=== PATIENT | male | born 1960 | race Caucasian/White ===

== ENCOUNTER 2019-03-18 16:36 | Inpatient (IN) | payer MEDICARE, BC ==
[2019-03-18] MEDS ORDERED: SODIUM CHLORIDE 0.9% 1,000 ML IV STA (17:10)
[2019-03-18] MEDS ORDERED: HYDROmorphone 1 MG/ML 1 ML SYRINGE IVP STA (17:10)
--- NOTE | 2019-03-18 17:33 | ED ---
SOB HPI - General Chief Complaint: Shortness of Breath Stated Complaint: left arm swelling, Ca Patient Time Seen by Provider: 03/18/19 16:59 Source: patient, RN notes reviewed, old records reviewed Mode of arrival: ambulatory Limitations: no limitations - History of Present Illness Initial Comments: This is a 58-year-old male the ER for evaluation with history. Patient is no other significant medical history is take chronic pain medication. A she has known CABGs unsure where where the cancerous. Patient is from [place] where the patient left treatment that he was currently going through. Patient was unhappy with treatment. Patient is here with left upper arm swelling, pain and swelling, patient is very aware of his prognosis he states it is not well. Presenting with family toward is finding about his medical history 1 evaluation MD Complaint: shortness of breath -: unknown Radiation: left arm (Swelling) Severity: moderate Severity scale (1-10): 7 Quality: aching, throbbing (Pain chest pain) Consistency: constant Improves With: nothing Worsens With: nothing Known History Of: COPD, other (History of lung cancer) Context: recent illness, other (Known cancer history) Associated Symptoms: chest pain, pain with inspiration, cough, sputum production Treatments Prior to Arrival: none - Related Data Home Medications Medication Instructions Recorded Confirmed Albuterol Inhaler [Ventolin Hfa 1 - 2 puff INHALATION RT-Q6H PRN 03/18/19 03/18/19 Inhaler] oxyCODONE HCL [oxyCODONE HCL (IR)] 15 mg PO TID 03/18/19 03/18/19 Allergies Allergy/AdvReac Type Severity Reaction Status Date / Time metronidazole [From Flagyl] Allergy Swelling Verified 03/18/19 17:52 Review of Systems ROS Statement: Those systems with pertinent positive or pertinent negative responses have been documented in the HPI. ROS Other: All systems not noted in ROS Statement are negative. Past Medical History Past Medical History: Cancer Additional Past Medical History / Comment(s): lung and throat cancer History of Any Multi-Drug Resistant Organisms: None Reported Past Surgical History: Appendectomy Past Psychological History: No Psychological Hx Reported Smoking Status: Current every day smoker Past Alcohol Use History: Occasional Past Drug Use History: None Reported General Exam Limitations: no limitations General appearance: alert, in no apparent distress Head exam: Present: atraumatic, normocephalic, normal inspection Eye exam: Present: normal appearance, EOMI. Absent: scleral icterus, conjunctival injection, periorbital swelling ENT exam: Present: normal exam, mucous membranes moist, other (Voice is hoarse, which is new for him) Neck exam: Present: normal inspection. Absent: tenderness, meningismus, lymphadenopathy Respiratory exam: Present: normal lung sounds bilaterally. Absent: respiratory distress, wheezes, rales, rhonchi, stridor Cardiovascular Exam: Present: regular rate, normal rhythm, normal heart sounds. Absent: systolic murmur, diastolic murmur, rubs, gallop, clicks GI/Abdominal exam: Present: soft, normal bowel sounds. Absent: distended, tenderness, guarding, rebound, rigid Extremities exam: Present: normal inspection, full ROM, normal capillary refill, other (Left upper extremity edema and variceal changes). Absent: tenderness, pedal edema, joint swelling, calf tenderness Back exam: Present: normal inspection Neurological exam: Present: alert, oriented X3, CN II-XII intact Psychiatric exam: Present: normal affect, normal mood Skin exam: Present: warm, dry, intact, normal color. Absent: rash Course Vital Signs 03/18/19 03/18/19 03/18/19 16:40 17:30 17:40 Temperature 97.4 F L Pulse Rate 79 75 73 Respiratory 18 18 15 Rate Blood Pressure 123/73 123/57 117/70 O2 Sat by Pulse 100 100 98 Oximetry 03/18/19 03/18/19 03/18/19 17:52 18:00 18:30 Temperature Pulse Rate 70 67 Respiratory 18 16 18 Rate Blood Pressure 117/70 117/64 O2 Sat by Pulse 95 97 Oximetry 03/18/19 19:00 Temperature Pulse Rate 67 Respiratory 18 Rate Blood Pressure 120/70 O2 Sat by Pulse 99 Oximetry - Reevaluation(s) Reevaluation #1: 03/18/19 17:33 Medical records reviewed and noncontributory Reevaluation #2: 03/18/19 19:15 Family as well as patient informed her results, questions answered - Consultations Consultation #1: Spoke with Dr. Ortiz for sounds and is okay for admission Medical Decision Making - Medical Decision Making 58 male with significant cancer, cancer burden from mediastinum necrotic areas of tumor as well as compression of artery, secondary to cancer in vision, patient will be admitted for oncology evaluation pain control monitoring of cardiopulmonary status - Lab Data Result diagrams: 03/18/19 17:25 03/18/19 17:25 Lab Results 03/18/19 03/18/19 03/18/19 Range/Units 17:25 17:25 17:25 WBC 8.3 (3.8-10.6) k/uL RBC 4.00 L (4.30-5.90) m/uL Hgb 11.8 L (13.0-17.5) gm/dL Hct 36.3 L (39.0-53.0) % MCV 90.8 (80.0-100.0) fL MCH 29.6 (25.0-35.0) pg MCHC 32.5 (31.0-37.0) g/dL RDW 14.3 (11.5-15.5) % Plt Count 266 (150-450) k/uL Neutrophils % 73 % Lymphocytes % 16 % Monocytes % 7 % Eosinophils % 2 % Basophils % 1 % Neutrophils # 6.1 (1.3-7.7) k/uL Lymphocytes # 1.4 (1.0-4.8) k/uL Monocytes # 0.5 (0-1.0) k/uL Eosinophils # 0.2 (0-0.7) k/uL Basophils # 0.1 (0-0.2) k/uL PT (9.0-12.0) sec INR (<1.2) APTT (22.0-30.0) sec D-Dimer (<0.60) mg/L FEU Sodium 139 (137-145) mmol/L Potassium 3.7 (3.5-5.1) mmol/L Chloride 104 (98-107) mmol/L Carbon Dioxide 29 (22-30) mmol/L Anion Gap 6 mmol/L BUN 10 (9-20) mg/dL Creatinine 0.84 (0.66-1.25) mg/dL Est GFR (CKD-EPI)AfAm >90 (>60 ml/min/1.73 sqM) Est GFR (CKD-EPI)NonAf >90 (>60 ml/min/1.73 sqM) Glucose 90 (74-99) mg/dL Plasma Lactic Acid Kennedy 1.3 (0.7-2.0) mmol/L Calcium 8.6 (8.4-10.2) mg/dL Phosphorus 4.6 H (2.5-4.5) mg/dL Magnesium 2.0 (1.6-2.3) mg/dL Total Bilirubin 0.4 (0.2-1.3) mg/dL AST 13 L (17-59) U/L ALT 11 L (21-72) U/L Alkaline Phosphatase 96 (38-126) U/L Creatine Kinase 29 L (55-170) U/L Troponin I (0.000-0.034) ng/mL Total Protein 6.0 L (6.3-8.2) g/dL Albumin 3.3 L (3.5-5.0) g/dL 03/18/19 03/18/19 Range/Units 17:25 17:25 WBC (3.8-10.6) k/uL RBC (4.30-5.90) m/uL Hgb (13.0-17.5) gm/dL Hct (39.0-53.0) % MCV (80.0-100.0) fL MCH (25.0-35.0) pg MCHC (31.0-37.0) g/dL RDW (11.5-15.5) % Plt Count (150-450) k/uL Neutrophils % % Lymphocytes % % Monocytes % % Eosinophils % % Basophils % % Neutrophils # (1.3-7.7) k/uL Lymphocytes # (1.0-4.8) k/uL Monocytes # (0-1.0) k/uL Eosinophils # (0-0.7) k/uL Basophils # (0-0.2) k/uL PT 10.2 (9.0-12.0) sec INR 0.9 (<1.2) APTT 26.0 (22.0-30.0) sec D-Dimer 1.83 H (<0.60) mg/L FEU Sodium (137-145) mmol/L Potassium (3.5-5.1) mmol/L Chloride (98-107) mmol/L Carbon Dioxide (22-30) mmol/L Anion Gap mmol/L BUN (9-20) mg/dL Creatinine (0.66-1.25) mg/dL Est GFR (CKD-EPI)AfAm (>60 ml/min/1.73 sqM) Est GFR (CKD-EPI)NonAf (>60 ml/min/1.73 sqM) Glucose (74-99) mg/dL Plasma Lactic Acid Kennedy (0.7-2.0) mmol/L Calcium (8.4-10.2) mg/dL Phosphorus (2.5-4.5) mg/dL Magnesium (1.6-2.3) mg/dL Total Bilirubin (0.2-1.3) mg/dL AST (17-59) U/L ALT (21-72) U/L Alkaline Phosphatase (38-126) U/L Creatine Kinase (55-170) U/L Troponin I <0.012 (0.000-0.034) ng/mL Total Protein (6.3-8.2) g/dL Albumin (3.5-5.0) g/dL - Radiology Data Radiology results: report reviewed (CT chest abdomen pelvis does show significant tumor burden, mediastinal as well as left lobe last), image reviewed Disposition Clinical Impression: Lung cancer Disposition: ADMITTED IP TO THIS HOSP Condition: Fair Is patient prescribed a controlled substance at d/c from ED?: No Referrals: Nonstaff,Physician [Primary Care Provider] - 1-2 days
[2019-03-18 17:42] LABS: Basophils # (A) 0.1 k/uL (0-0.2); Basophils % (A) 1 %; Eosinophils # (A) 0.2 k/uL (0-0.7); Eosinophils % (A) 2 %; HCT 36.3 % (39.0-53.0); HGB 11.8 gm/dL (13.0-17.5); Lymphocytes # (A) 1.4 k/uL (1.0-4.8); Lymphocytes % (A) 16 %; MCH 29.6 pg (25.0-35.0); MCHC 32.5 g/dL (31.0-37.0); MCV 90.8 fL (80.0-100.0); Mean Platelet Volume 5.8; Monocytes # (A) 0.5 k/uL (0-1.0); Monocytes % (A) 7 %; Neutrophils # (A) 6.1 k/uL (1.3-7.7); Neutrophils % (A) 73 %; Platelet Count 266 k/uL (150-450); RDW 14.3 % (11.5-15.5); WBC 8.3 k/uL (3.8-10.6)
[2019-03-18 17:50] LABS: ALT 11 U/L (21-72); AST 13 U/L (17-59); African American GFR (CKD) >90 (>60 ml/min/1.73 sqM); Albumin 3.3 g/dL (3.5-5.0); Alkaline Phosphatase 96 U/L (38-126); Anion Gap 6 mmol/L; Blood Urea Nitrogen 10 mg/dL (9-20); Calcium 8.6 mg/dL (8.4-10.2); Carbon Dioxide 29 mmol/L (22-30); Chloride 104 mmol/L (98-107); Creatine Kinase 29 U/L (55-170); Glucose 90 mg/dL (74-99); Phosphorus 4.6 mg/dL (2.5-4.5); Potassium 3.7 mmol/L (3.5-5.1); Sodium 139 mmol/L (137-145); Total Bilirubin 0.4 mg/dL (0.2-1.3)
[2019-03-18 18:01] LABS: INR 0.9 (<1.2); Prothrombin Time 10.2 sec (9.0-12.0)
[2019-03-18 18:08] LABS: D-Dimer 1.83 mg/L FEU (<0.60)
--- NOTE | 2019-03-18 18:42 | CT ---
EXAMINATION TYPE: CT angio chest DATE OF EXAM: 03/18/2019 6:31 PM COMPARISON: None HISTORY: Throat CA CT DLP: 1233.9 mGycm Automated exposure control for dose reduction was used. CONTRAST: CTA scan of the thorax is performed with IV Contrast, patient injected with 100 mL of Isovue 370, pul monary embolism protocol. . There are 3-D post processed images. FINDINGS: There is a poorly marginated irregular 4.5 cm cavitating infiltrate left upper lobe near the lung ape x. There is extensive mass infiltration of the mediastinum with encasement of the pulmonary arteries. There is encasement of the aortic arch and the great vessels. There is extensive encasement of the t rachea. Thoracic aorta is atheromatous. There is almost complete occlusion of the left pulmonary artery due t o encasement from tumor. I do not see pulmonary embolism. There is 5 cm bulla at the right cardiac border in the right middle lobe. There is some consolidation and atelectasis in the lingula left upper lobe. There is no adrenal mass. Heart size is normal. IMPRESSION: THERE IS LARGE MEDIASTINAL MASS ENCASING THE GREAT VESSELS AND TRACHEA AND MAIN ARTERIES. THERE IS HAMPTON BTOTAL OCCLUSION OF THE LEFT PULMONARY ARTERY APPARENTLY DUE TO TUMOR INVASION. LEFT PLEURAL EFFUSION . CAVITATING MASS LEFT UPPER LOBE CONSISTENT WITH NECROTIC TUMOR. LINGULA CONSOLIDATION AND ATELECTAS IS. NO EVIDENCE OF PULMONARY EMBOLISM.
--- NOTE | 2019-03-18 18:56 | CT ---
EXAMINATION TYPE: CT abdomen pelvis w con DATE OF EXAM: 03/18/2019 COMPARISON: None HISTORY: Throat CA CT DLP: 1233.9 mGycm Automated exposure control for dose reduction was used. TECHNIQUE: Helical acquisition of images was performed from the lung bases through the pelvis. CONTRAST: Performed without Oral Contrast and with IV Contrast, patient injected with 100 mL of Isovue 370. FINDINGS: Multiple axial sections were obtained from the diaphragm to the floor the pelvis with intravenous con trast. There is small left pleural effusion. Heart size is normal. There is no pericardial effusion. New gra ft there is small calcified splenic granulomata. There is irregular 1.5 cm low-density lesion in the tail of the pancreas. There are small cystic changes in the pancreatic head. Gallbladder appears norm al. Liver shows no focal defect. The bile ducts are not dilated. There is no adrenal mass. The kidneys show satisfactory contrast opacification. There is no hydroneph rosis. There is 1.5 cm cortical cyst posterior left kidney. Ureters are not dilated. There is no retr operitoneal adenopathy. Abdominal aorta is atheromatous. Bladder distends smoothly. There is no ingui nal hernia. There is some mild fat stranding in the left inguinal region. There is no free fluid in t he pelvis. There is no mesenteric edema. There is no ascites or free air. There is no evidence of a bowel obstru ction. There is no sign of thickened appendix. Lumbar vertebra have normal alignment. Disc spaces are fairly normal. Posterior elements are intact. There is no compression fracture. I see no bony destru ctive process. IMPRESSION: SMALL LOW-DENSITY LESION IN THE TAIL OF THE PANCREAS. SMALL CYSTIC AREAS IN THE PANCREATIC HEAD. COMP ARISON WITH AN OLD EXAM WOULD BE HELPFUL. LEFT INGUINAL INFLAMMATORY CHANGES OF UNCERTAIN SIGNIFICANCE. ENLARGED LEFT INGUINAL LYMPH NODES KLAUDIA URE UP TO 2.8 BY 1.5 CM. NO HERNIA SEEN.
[2019-03-18] MEDS ORDERED: SODIUM CHLORIDE 0.9% 1,000 ML IV ONE (19:10)
--- NOTE | 2019-03-18 20:28 | US ---
EXAMINATION TYPE: US venous doppler duplex LE LT DATE OF EXAM: 03/18/2019 8:04 PM COMPARISON: NONE CLINICAL HISTORY: edema. Edema x 4 days. Hx lung and throat cancer. Chest pain. Patient does not take blood thinners. No Hx of DVT. SIDE PERFORMED: Left TECHNIQUE: The lower extremity deep venous system is examined utilizing real time linear array sonog john with graded compression, doppler sonography and color-flow sonography. VESSELS IMAGED: External Iliac Vein (EIV) Common Femoral Vein Deep Femoral Vein Greater Saphenous Vein * Femoral Vein Popliteal Vein Small Saphenous Vein * Proximal Calf Veins (* superficial vessels) Left Leg: No evidence of DVT in veins imaged from prox calf veins to EIV. There appears to be an ane choic area in the left groin at the patient's area of concern measurin.2 x 4.2 x 1.3 cm. Hypoechoic area with hyperechoic center seen in the left groin measurin.1 x 0.9 x 0.9 cm. This a ppears near the anechoic area. IMPRESSION: No evidence of deep venous thrombosis in the left leg. Cystic fluid collection in the le ft groin of uncertain origin and significance.
[2019-03-18] MEDS ORDERED: NICOTINE 14MG/24HR PATCH TRANSDERM SCH (22:45)
[2019-03-18] MEDS: HYDROcodone/APAP 7.5-325MG 1 EACH TAB PO PRN (22:48)
[2019-03-18] MEDS: MELATONIN 3 MG TABLET PO SCH (22:49)
--- NOTE | 2019-03-18 22:53 | P.HPIM ---
History of Present Illness H&P Date: 03/18/19 Chief Complaint: Dyspnea 58-year-old male with recent diagnosis lung mass with history of spina bifida patient moved from [place] recently to [place]. He would like to establish care here he wasn't happy with doctors over there. He was recently told that he has a lung mass with possible cancer primary cancer has not been identified yet. Patient was not adhering to his doctor's recommendation as he didn't build good report with him. Patient comments on losing 110 pounds over the past year, he also reports continuing to smoke. Patient denies any hemoptysis. He gets attacks of shortness of breath he denies any history of COPD or using any inhalers at home. He denies any recent hospitalization or use of antibiotics. Once he arrived to this area has family insisted that he comes to the hospital for evaluation as he lost a lot of weight and struggling to breathe. Patient is aware that she is possibly having underlying cancer. But he doesn't have a confirmed diagnosis yet. He is complaining of chronic pain over his upper extremities spine and lower extremities which is chronic in nature he is to take oxycodone at home. He denies otherwise any fevers or chills or GI bleeding denies any abdominal pain or chest pain denies any headache or any focal neuro deficits. In the ED CT imaging showed mediastinal mass encasing blood vessels and trachea patient admitted due to dyspnea and shortness of breath with wheezing for breathing treatments and evaluation by pulmonary and oncology to establish care Review of Systems Pertinent positives as noted in HPI. All other systems were reviewed and are negative Past Medical History Past Medical History: Cancer, Pneumonia Additional Past Medical History / Comment(s): lung and throat cancer, damaged vocal cords that will not get better per doctor in [place], voice will never come back to normal will have hoarse void, Left lung cancer/mass, unable to get big enough biopsy for final diagnosis History of Any Multi-Drug Resistant Organisms: None Reported Past Surgical History: Appendectomy Past Anesthesia/Blood Transfusion Reactions: No Reported Reaction Past Psychological History: No Psychological Hx Reported Smoking Status: Current every day smoker Past Alcohol Use History: Occasional Additional Past Alcohol Use History / Comment(s): half a pack cigarrettes, per patient many year 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 - Past Family History Mother Family Medical History: Cancer Additional Family Medical History / Comment(s): possible brain cancer Medications and Allergies Home Medications Medication Instructions Recorded Confirmed Type Albuterol Inhaler [Ventolin Hfa 1 - 2 puff INHALATION RT-Q6H PRN 03/18/19 03/18/19 History Inhaler] oxyCODONE HCL [oxyCODONE HCL (IR)] 15 mg PO TID 03/18/19 03/18/19 History Allergies Allergy/AdvReac Type Severity Reaction Status Date / Time metronidazole [From Flagyl] Allergy Swelling Verified 03/18/19 21:28 Physical Exam Vitals: Vital Signs Temp Pulse Pulse Resp BP BP Pulse Ox 03/18/19 21:27 98.0 F 75 20 131/83 99 03/18/19 19:30 76 20 118/72 96 03/18/19 19:00 67 18 120/70 99 03/18/19 18:30 67 18 117/64 97 03/18/19 18:00 70 16 117/70 95 03/18/19 17:52 18 03/18/19 17:40 73 15 117/70 98 03/18/19 17:30 75 18 123/57 100 03/18/19 16:40 97.4 F L 79 18 123/73 100 Intake and Output 03/18/19 03/18/19 03/18/19 06:59 14:59 22:59 Intake Total 1000 Balance 1000 Intake: Amount of Fluid Infused ( 1000 ml) Other: Weight 63.503 kg Constitutional: No acute distress, conversant, pleasant [place] hoarseness of voice, Eyes: Anicteric sclerae, moist conjunctiva, no lid-lag Pupils equal round reactive to light ENMT: NC/AT Oropharynx clear, no erythema, exudates Neck: Supple, FROM, no masses, or JVD No carotid bruits No thyromegaly Lungs: Scattered rhonchorous breathing, slight end expiratory wheezing scattered Clear to percussion Normal respiratory effort, no accessory muscle use Cardiovascular: Heart regular in rate and rhythm, No murmurs, gallops, or rubs No peripheral edema Abdominal: Soft, scars of prior surgeries Nontender, no guarding, rebound or rigidity Abdomen moving with respiration Normoactive bowel sounds No hepatomegaly, No splenomegaly No palpable mass No abdominal wall hernia noted Left inguinal hernia reducible Skin: Normal temperature, tone, texture, turgor No induration No subcutaneous nodules No rash, lesions No ulcers Extremities: No digital cyanosis No clubbing Pedal pulses intact and symmetrical Radial pulses intact and symmetrical No calf tenderness Psychiatric: Alert and oriented to person, place and time Appropriate affect fair judgment Neuro Muscles Strength 4/5 in all 4 extremities Sensation to light touch grossly present throughout Cranial nerves II-XII grossly intact No focal sensory deficits Lymphatics: no palpable cervical or supraclavicular , or inguinal lymph nodes Results CBC & Chem 7: 03/18/19 17:25 03/18/19 17:25 Labs: Abnormal Lab Results - Last 24 Hours (Table) 03/18/19 03/18/19 03/18/19 Range/Units 17:25 17:25 17:25 RBC 4.00 L (4.30-5.90) m/uL Hgb 11.8 L (13.0-17.5) gm/dL Hct 36.3 L (39.0-53.0) % D-Dimer 1.83 H (<0.60) mg/L FEU Phosphorus 4.6 H (2.5-4.5) mg/dL AST 13 L (17-59) U/L ALT 11 L (21-72) U/L Creatine Kinase 29 L (55-170) U/L Total Protein 6.0 L (6.3-8.2) g/dL Albumin 3.3 L (3.5-5.0) g/dL Lipase (23-300) U/L 03/18/19 Range/Units 17:25 RBC (4.30-5.90) m/uL Hgb (13.0-17.5) gm/dL Hct (39.0-53.0) % D-Dimer (<0.60) mg/L FEU Phosphorus (2.5-4.5) mg/dL AST (17-59) U/L ALT (21-72) U/L Creatine Kinase (55-170) U/L Total Protein (6.3-8.2) g/dL Albumin (3.5-5.0) g/dL Lipase 17 L (23-300) U/L Thrombosis Risk Factor Assmnt - Choose All That Apply Any of the Below Risk Factors Present?: Yes Each Factor Represents 1 point: Age 41-60 years, Varicose veins Other Risk Factors: Yes Each Risk Factor Represents 2 Points: Malignancy Other congenital or acquired thrombophilia - If yes, enter type in comment: No Thrombosis Risk Factor Assessment Total Risk Factor Score: 4 Thrombosis Risk Factor Assessment Level: Moderate Risk Assessment and Plan Assessment: 58-year-old male with history of spina bifida presented due to shortness of br eath admitted under observation with anticipated length of stay less than 2 midnights for acute shortness of breath CT scanning found a mass encasing blood vessels and trachea patient is known to have cancer of unknown primary suspected to have advanced cancer with metastasis. Plan: Dyspnea and shortness of breath Dilated left upper extremity and upper chest superficial veins Most likely due to underlying lung cancer with mass effect over the trachea Breathing treatments as needed Supportive care Assess home oxygenation need Pulmonary consult Oncology consult Hospice evaluation pain control Vascular surgery consult Xanax when necessary for anxiety Anemia secondary to most likeContinue to monitor hemoglobin levels Unintentional weight loss most likely secondary to underlying cancer Supportive care Tobacco smoking abuse Counseled to quit smoking Nicotine replacement therapy offered DVT prophylaxis on Lovenox Left inguinal hernia reducible CODE STATUS full code Discussed with: Patient, ER, RN Anticipated length of stay less than [address]: Home A total of 65 minutes was spent on the care of this complex patient more than 50% of the time was spent in counseling and care coordination.
--- NOTE | 2019-03-18 22:56 | P.HPADDEND ---
H&P Addendum H&P Addendum Date: 03/18/19 Advanced Care Planning Active diagnoses: Just Tylenol mass possible lung cancer Dyspnea Background: The patient was admitted for treatment of shortness of breath. Confirmation and clarification of wishes upon admission. Discussion: Person(s) present and participating in discussion: The patient, myself, and family members Summary: Patient is aware that he's probably dealing with cancer he has a mediastinal mass however he doesn't have a confirmed diagnosis as he did not adhere to recommendation of his doctors in [place]. However despite explaining to him that he probably has advanced cancer he still hoping for full recovery and wants to pursue for medical measures to establish diagnosis and treatment plan. At this time his wishes are to be full code and to pursue CPR and intubation as ap propriate and needed. Patient is hoping to be discharged home soon and be able to breathe better and willing to use oxygen if required. Is also complaining of chronic pain and hoping to have some medications to help him cope with his pain. Patient is having good support from his family and decided to move to this area to settle near his family. Time spent: Total time spent face to face in education and discussion directly related to advanced care plannin minutes
[2019-03-19] MEDS: HYDROcodone/APAP 7.5-325MG 1 EACH TAB PO PRN ×4 (04:58→22:10)
[2019-03-19] MEDS: ENOXAPARIN 40 MG/0.4 ML SYRINGE SQ SCH ×2 (08:51→09:07)
[2019-03-19] MEDS: ALPRAZolam 0.5 MG TAB PO PRN ×3 (08:51→16:34)
--- NOTE | 2019-03-19 08:58 | US ---
EXAMINATION TYPE: US venous doppler duplex UE LT DATE OF EXAM: 03/19/2019 COMPARISON: NONE CLINICAL HISTORY: dvt. left arm swelling, no IV site in this arm, no h/o dvt SIDE PERFORMED: Left Left Arm: Internal echoes within left IVJ, subclavian vein, axilla, cephalic vein at proximal junctio n and basilic in upper arm. Veins did not compress at these sites in upper arm. IMPRESSION: 1. Findings are compatible with extensive deep venous thrombosis including the left internal jugular vein, subclavian vein, axillary vein, cephalic vein and basilic vein.
[2019-03-19 09:43] LABS: Basophils # (A) 0.1 k/uL (0-0.2); Basophils % (A) 1 %; Eosinophils # (A) 0.1 k/uL (0-0.7); Eosinophils % (A) 2 %; HCT 33.1 % (39.0-53.0); HGB 10.3 gm/dL (13.0-17.5); Lymphocytes # (A) 1.4 k/uL (1.0-4.8); Lymphocytes % (A) 25 %; MCH 28.7 pg (25.0-35.0); MCHC 31.1 g/dL (31.0-37.0); MCV 92.3 fL (80.0-100.0); Mean Platelet Volume 6.5; Monocytes # (A) 0.4 k/uL (0-1.0); Monocytes % (A) 7 %; Neutrophils # (A) 3.7 k/uL (1.3-7.7); Neutrophils % (A) 64 %; Platelet Count 222 k/uL (150-450); RBC 3.58 m/uL (4.30-5.90); RDW 14.6 % (11.5-15.5); WBC 5.8 k/uL (3.8-10.6)
[2019-03-19 09:57] LABS: Partial Thromboplastin Time 25.8 sec (22.0-30.0); Prothrombin Time 10.3 sec (9.0-12.0)
--- NOTE | 2019-03-19 10:53 | P.CONS ---
History of Present Illness - Reason for Consult Consult date: 03/19/19 Lung mass Requesting physician: George Ortiz - Chief Complaint Left upper extremity swelling and pain - History of Present Illness Mr. Patel is a very pleasant 58-year-old male from [place], he was brought to the hospital by his sister for concerns regarding his progressive health decline. Pt states that about one year ago he was told he had a mass in his lung, most likely lung cancer. Patient opted to not follow-up on this. Since that time, the patient has lost about 110 pounds, his voice changed and has become hoarse, he is not voicing any other notable changes in his health or complaints. On Monday though, his left upper extremity started swelling, there was venous congestion visual in the chest and the patient had found a "lump" in his left groin. On admission patient had a CTA of the chest revealed a 4.5 cm left upper lobe cavitating mass, and a mediastinal mass encasing the great vessels in the trachea. Doppler of the left lower extremity showed no DVT but there was a hypoechoic mass measuring 3.2 x 4.2 x 1.3 cm in lt groin. Doppler of the left upper extremity showed DVT in the left IJ, subclavian, axillary, cephalic and basilic veins. Heparin drip was started. CT AP showed a small density in the tail of the pancreas, the left groin lymph node was also seen, no other concerning areas discussed. Patient has a remote history of alcohol, he is a longtime smoker, significantly cutting back over the last year but recently, due to stress and diagnosis, his feeling is that if he is going to he is going to do it during the things he enjoys. 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 per doctor in [place], voice will never come back to normal will have hoarse void, Left lung cancer/mass, unable to get big enough biopsy for final diagnosis History of Any Multi-Drug Resistant Organisms: None Reported Past Surgical History: Appendectomy Past Anesthesia/Blood Transfusion Reactions: No Reported Reaction Past Psychological History: No Psychological Hx Reported Smoking Status: Current every day smoker Past Alcohol Use History: Occasional Additional Past Alcohol Use History / Comment(s): half a pack cigarrettes, per patient many year 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 - Past Family History Mother Family Medical History: Cancer Additional Family Medical History / Comment(s): possible brain cancer Medications and Allergies Home Medications Medication Instructions Recorded Confirmed Type Albuterol Inhaler [Ventolin Hfa 1 - 2 puff INHALATION RT-Q6H PRN 03/18/19 03/18/19 History Inhaler] oxyCODONE HCL [oxyCODONE HCL (IR)] 15 mg PO TID 03/18/19 03/18/19 History Allergies Allergy/AdvReac Type Severity Reaction Status Date / Time metronidazole [From Flagyl] Allergy Swelling Verified 03/18/19 21:28 Physical Exam Vitals: Vital Signs Temp Pulse Pulse Resp BP BP Pulse Ox 03/19/19 05:00 97.3 F L 65 20 106/63 100 03/18/19 21:27 98.0 F 75 20 131/83 99 03/18/19 19:30 76 20 118/72 96 03/18/19 19:00 67 18 120/70 99 03/18/19 18:30 67 18 117/64 97 03/18/19 18:00 70 16 117/70 95 03/18/19 17:52 18 03/18/19 17:40 73 15 117/70 98 03/18/19 17:30 75 18 123/57 100 03/18/19 16:40 97.4 F L 79 18 123/73 100 Intake and Output 03/18/19 03/19/19 03/19/19 22:59 06:59 14:59 Intake Total 1590 Balance 1590 Intake: Amount of Fluid Infused ( 1000 ml) Oral 590 Other: Voiding Method Toilet Toilet # Voids 1 1 Weight 63.503 kg - Constitutional General appearance: average body habitus, cooperative, no acute distress - EENT Eyes: anicteric sclerae, EOMI ENT: hearing grossly normal, normal oropharynx - Neck lt groin 2cm hard fixed LN Neck: lymphadenopathy - Respiratory Respiratory: right: CTA, left: diminished - Cardiovascular Rhythm: regular Heart sounds: normal: S1, S2 Abnormal Heart Sounds: no systolic murmur, no diastolic murmur, no rub, no S3 Gallop, no S4 Gallop, no click, no other leg Peripheral Edema: bilateral: None - Gastrointestinal General gastrointestinal: no absent bowel sounds, no decreased bowel sounds, no distended, no hepatomegaly, no hyperactive bowel sounds, normal bowel sounds, no organomegaly, no rigid, no scaphoid, soft, no splenomegaly, no tenderness, no umbilical hernia, no ventral hernia - Neurologic Neurologic: CNII-XII intact - Musculoskeletal Musculoskeletal: strength equal bilaterally - Psychiatric Psychiatric: A&O x's 3, appropriate affect, intact judgment & insight Results CBC & Chem 7: 03/19/19 09:19 03/18/19 17:25 Labs: Abnormal Lab Results - Last 24 Hours (Table) 03/18/19 03/18/19 03/18/19 Range/Units 17:25 17:25 17:25 RBC 4.00 L (4.30-5.90) m/uL Hgb 11.8 L (13.0-17.5) gm/dL Hct 36.3 L (39.0-53.0) % D-Dimer 1.83 H (<0.60) mg/L FEU Phosphorus 4.6 H (2.5-4.5) mg/dL AST 13 L (17-59) U/L ALT 11 L (21-72) U/L Creatine Kinase 29 L (55-170) U/L Total Protein 6.0 L (6.3-8.2) g/dL Albumin 3.3 L (3.5-5.0) g/dL Lipase (23-300) U/L 03/18/19 03/19/19 Range/Units 17:25 09:19 RBC 3.58 L (4.30-5.90) m/uL Hgb 10.3 L (13.0-17.5) gm/dL Hct 33.1 L (39.0-53.0) % D-Dimer (<0.60) mg/L FEU Phosphorus (2.5-4.5) mg/dL AST (17-59) U/L ALT (21-72) U/L Creatine Kinase (55-170) U/L Total Protein (6.3-8.2) g/dL Albumin (3.5-5.0) g/dL Lipase 17 L (23-300) U/L CT scan - abdomen: report reviewed CT scan - chest: report reviewed CT scan - pelvis: report reviewed Venous US: report reviewed Assessment and Plan (1) Mass of left lung Narrative/Plan: Dr. Tien Ulloa did discuss the case. Plan is for biopsy today. Pathology pending. From the imaging that is available at this time there is at least advanced disease in the chest, there is a questionable left inguinal lymph node, this may be requested to be biopsied later. MRI of the brain has been ordered for completion of initial staging. Diagnosis, prognosis, treatment options will be discussed once all the information is available. Current Visit: Yes Status: Acute Code(s): R91.8 - OTHER NONSPECIFIC ABNORMAL FINDING OF LUNG FIELD SNOMED Code(s): 758502679 (2) DVT (deep venous thrombosis) Narrative/Plan: Currently heparin drip. Continue patient on heparin drip while completing procedures inpatient. Plan for NOAC on discharge Current Visit: Yes Status: Acute Priority: High Code(s): I82.409 - ACUTE EMBOLISM AND THOMBOS UNSP DEEP VN UNSP LOWER EXTREMITY SNOMED Code(s): 893216762 Plan: Doctor attests: I performed a history and physical examination of this patient, developed impression and plan of care. Discussed with dictator. I agree with dictators note, documented as a scribe.
[2019-03-19 11:39] VITALS: BMI 20.7
[2019-03-19] MEDS ORDERED: HEPARIN SODIUM,PORCINE 5,000 UNIT/ML 1 ML VIAL IV PRN (12:00)
[2019-03-19] MEDS ORDERED: HEPARIN SODIUM,PORCINE 10,000 UNIT/ML 1 ML VIAL IV ONE (12:00)
--- NOTE | 2019-03-19 12:01 | XR ---
EXAMINATION TYPE: XR chest 1V portable DATE OF EXAM: 03/19/2019 COMPARISON: NONE HISTORY: Left lung biopsy TECHNIQUE: Single frontal view of the chest is obtained. FINDINGS: Mediastinal widening and large left upper lobe lung mass noted. No sizable pneumothorax po st lung biopsy. Chronic appearing elevation left hemidiaphragm. Heart size stable normal. Hypertrophi c degenerative change of the spine. Chronic appearing rib deformities. IMPRESSION: 1. No sizable pneumothorax post left lung biopsy. 2. Mediastinal, hilar and left upper lobe masses with narrowing or compression of the left mainstem b ronchus.
--- NOTE | 2019-03-19 12:05 | P.CNPUL ---
History of Present Illness Consult date: 03/19/19 Reason for consult: lung mass History of present illness: This is a 58-year-old male patient, a chronic smoker, who is in [place] and who was living in [place] for the past 20 years. The patient was diagnosed having a lung mass approximately year ago and was suspected that this was a cancer. He opted not to follow and do any treatment at that point. Over the past one year he lost significant amount of weight. He lost around 110 pounds. He lost his voice and is currently course and he was having worsening shortness of breath. This week, the patient developed some swelling in his left upper extremity and he noted also some venous engorgement across his left anterior chest area. He drove himself back to [place]. He came into the hospital with computed tomography scan of the chest was done and showed a large mediastinal mass extending to the left upper lobe with some central cavitation. This mass was quite irregular, more than 5 cm in size extending into the left apex and infiltrating into the mediastinum causing significant mediastinal involvement encasing the pulmonary arteries and the great vessels. There is also encasement of the trachea. There was some consolidation and atelectatic changes in the left upper lobe. Also, Doppler involving the left IJ, subclavian vein, axillary vein and cephalic vein and basilic vein. The patient is quite anxious. He is a termite control service representative cigarette smoker. He also has history of alcoholism. Review of Systems Constitutional: Reports fatigue, Reports poor appetite, Reports weakness, Reports weight loss Eyes: denies blurred vision, denies bulging eye, denies decreased vision Ears: deny: decreased hearing Ears, nose, mouth and throat: Reports ant. neck pain, Reports hoarseness, Reports neck lump Breasts: absent: as per HPI, gynecomastia Cardiovascular: Reports decreased exercise tolerance, Reports dyspnea on exertion, Reports shortness of breath Respiratory: Reports dyspnea Gastrointestinal: Reports as per HPI, Reports loss of appetite Genitourinary: Reports as per HPI Musculoskeletal: Reports as per HPI Musculoskeletal: absent: ankle pain, ankle stiffness, ankle swelling Integumentary: Denies pruritus, Denies rash Neurological: Reports weakness Psychiatric: Reports as per HPI, Reports sleep disturbances Endocrine: Reports fatigue Hematologic/Lymphatic: Reports as per HPI Allergic/Immunologic: Reports as per HPI Past Medical History Past Medical History: Cancer, Pneumonia Additional Past Medical History / Comment(s): lung mass, COPD, smoker, history of alcoholism History of Any Multi-Drug Resistant Organisms: None Reported Past Surgical History: Appendectomy Past Anesthesia/Blood Transfusion Reactions: No Reported Reaction Past Psychological History: No Psychological Hx Reported Smoking Status: Current every day smoker Past Alcohol Use History: Occasional Additional Past Alcohol Use History / Comment(s): half a pack cigarrettes, per patient many year 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 - Past Family History Mother Family Medical History: Cancer Additional Family Medical History / Comment(s): possible brain cancer Medications and Allergies Home Medications Medication Instructions Recorded Confirmed Type Albuterol Inhaler [Ventolin Hfa 1 - 2 puff INHALATION RT-Q6H PRN 03/18/19 03/18/19 History Inhaler] oxyCODONE HCL [oxyCODONE HCL (IR)] 15 mg PO TID 03/18/19 03/18/19 History Apixaban [Eliquis Starter Pack 0 mg PO DIRECTED 30 Days #1 pack 03/19/19 Rx (for VTE)] Allergies Allergy/AdvReac Type Severity Reaction Status Date / Time metronidazole [From Flagyl] Allergy Swelling Verified 03/18/19 21:28 Physical Exam Vitals: Vital Signs Temp Pulse Pulse Resp BP BP Pulse Ox 03/19/19 11:25 67 18 95/55 93 L 03/19/19 05:00 97.3 F L 65 20 106/63 100 03/18/19 21:27 98.0 F 75 20 131/83 99 03/18/19 19:30 76 20 118/72 96 03/18/19 19:00 67 18 120/70 99 03/18/19 18:30 67 18 117/64 97 03/18/19 18:00 70 16 117/70 95 03/18/19 17:52 18 03/18/19 17:40 73 15 117/70 98 03/18/19 17:30 75 18 123/57 100 03/18/19 16:40 97.4 F L 79 18 123/73 100 Intake and Output 03/18/19 03/19/19 03/19/19 22:59 06:59 14:59 Intake Total 1590 Balance 1590 Intake: Amount of Fluid Infused ( 1000 ml) Oral 590 Other: Voiding Method Toilet Toilet # Voids 1 1 Weight 63.503 kg 63.503 kg - Constitutional General appearance: average body habitus, cooperative, no acute distress - EENT Eyes: anicteric sclerae, EOMI ENT: hearing grossly normal, normal oropharynx - Neck lt neck/cervical area there is lymphadenopathy with a 2cm hard fixed LN Neck: lymphadenopathy - Respiratory Respiratory: right: CTA, left: diminished - Cardiovascular Rhythm: regular Heart sounds: normal: S1, S2 Abnormal Heart Sounds: no systolic murmur, no diastolic murmur, no rub, no S3 Gallop, no S4 Gallop, no click, no other leg Peripheral Edema: bilateral: None - Gastrointestinal General gastrointestinal: no absent bowel sounds, no decreased bowel sounds, no distended, no hepatomegaly, no hyperactive bowel sounds, normal bowel sounds, no organomegaly, no rigid, no scaphoid, soft, no splenomegaly, no tenderness, no umbilical hernia, no ventral hernia - Neurologic Neurologic: CNII-XII intact - Musculoskeletal Musculoskeletal: strength equal bilaterally - Psychiatric Psychiatric: A&O x's 3, appropriate affect, intact judgment & insight, extremely anxious Results - Laboratory Findings CBC and BMP: 03/19/19 09:19 03/18/19 17:25 PT/INR, D-dimer PT 10.3 sec (9.0-12.0) 03/19/19 09:19 INR 1.0 (<1.2) 03/19/19 09:19 D-Dimer 1.83 mg/L FEU (<0.60) H 03/18/19 17:25 Abnormal lab findings: Abnormal Labs 03/18/19 03/18/19 03/18/19 17:25 17:25 17:25 RBC 4.00 L Hgb 11.8 L Hct 36.3 L D-Dimer 1.83 H Phosphorus 4.6 H AST 13 L ALT 11 L Creatine Kinase 29 L Total Protein 6.0 L Albumin 3.3 L Lipase 03/18/19 03/19/19 17:25 09:19 RBC 3.58 L Hgb 10.3 L Hct 33.1 L D-Dimer Phosphorus AST ALT Creatine Kinase Total Protein Albumin Lipase 17 L - Diagnostic Findings CT scan - chest: image reviewed Assessment and Plan Plan: 1 large mediastinal mass extending to the left apex addition to invasion of the mediastinum with encasement of the great vessels in the trachea. Highly suspicious for primary bronchogenic cancer. There is also left cervical lymphadenopathy. 2 new onset hoarseness, likely secondary to mediastinal mass and involvement of the left recurrent laryngeal nerve 3 extensive DVT involving the left axillary, subclavian, cephalic and basilic veins in the left upper extremity. 4 weight-loss secondary to above 5 smoker 6 history of alcoholism Plan Discussed the case with interventional radiology. The left mass is very accessible for a fine-needle aspirate. We'll proceed with a fine-needle aspirate. Following that the patient will placed on IV heparin regarding the left upper extremity DVT. We'll consult oncology. We'll continue to follow. Prognosis poor baseline above-mentioned comorbidities. Further staging will be needed once diagnosis confirmed. Findings highly suggestive an suspicious for malignancy/primary bronchogenic cancer.
--- NOTE | 2019-03-19 12:54 | CT ---
EXAMINATION TYPE: CT guided aspiration DATE OF EXAM: 03/19/2019 COMPARISON: CT 03/18/2019 HISTORY: Mediastinal mass CT DLP: 635 mGycm The procedure is discussed with the patient, the risks, complications, benefits and alternatives, wer e discussed and any questions were answered. Informed consent was obtained. The patient is placed p nettie on the CT table, prepped and draped in the usual sterile fashion. Utilizing a 18-gauge core biopsy needle access into the mediastinal mass was achieved with one sample obtained. Pathology pending. All elements of maximal barrier and sterile technique were utilized. The patient remained stable throughout the procedure with no immedi ate postprocedural complication. IMPRESSION: 1. Successful CT guided core biopsy of a mediastinal mass
[2019-03-19] MEDS: HEPARIN SOD,PORK IN 0.45% NACL 25,000 UNIT in 0.45% NACL 1 250ML.BAG IV SCH (13:56)
--- NOTE | 2019-03-19 15:41 | P.PN ---
Subjective Progress Note Date: 03/19/19 Patient is seen and examined follow-up laying in some mild distress in hospital bed, patient complaining of left upper extremity swelling and pain. He describes pain as sharp shooting numbness and tingling sensations down his arm. He reports a cough that also nonproductive, complains of ongoing hoarseness, she denies any blurry vision or headaches, he also complains of dilated veins on his left upper chest. Left upper extremity venous Doppler compatible with extensive DVT involving the left IJ subclavian axillary cephalic and basilic vein Objective - Vital Signs Vital signs: Vital Signs Temp 98.1 F 03/19/19 12:15 Pulse 61 03/19/19 12:15 Resp 17 03/19/19 12:15 BP 94/55 03/19/19 12:15 Pulse Ox 100 03/19/19 12:15 Intake & Output 03/18/19 03/19/19 03/19/19 18:59 06:59 18:59 Intake Total 1590 Balance 1590 Weight 63.503 kg 63.503 kg Intake: Amount of Fluid Infused ( 1000 ml) Oral 590 Other: Voiding Method Toilet Toilet # Voids 1 - Exam Constitutional: No acute distress, conversant, pleasant, hoarse sounding voice Eyes: Anicteric sclerae, moist conjunctiva, no lid-lag, PERRLA, negative for ptosis ENMT: NC/AT,Oropharynx clear, no erythema, exudates Neck:Supple, FROM, no masses, or JVD, No carotid bruits; No thyromegaly, left cervical LAD approximately 2 cm Lungs: Clear to auscultation, Clear to percussion, Normal respiratory effort, no accessory muscle use Cardiovascular: Heart regular in rate and rhythm, No murmurs, gallops, or rubs no peripheral edema Abdominal: Soft Nontender, nom distended, no guarding, no rebound or rigidity, Normoactive bowel sounds No hepatomegaly, No splenomegaly, No palpable mass No abdominal wall hernia noted Skin: Normal temperature, tone, texture, turgor, No induration No subcutaneous nodules, No rash, lesions, No ulcers dilated spider veins in his left upper chest, Extremities:No digital cyanosis No clubbing, Pedal pulses intact and symmetrical Radial pulses intact and symmetrical Normal gait and station, No calf tenderness Psychiatric: Alert and oriented to person, place and time, Appropriate affect Intact judgement Neuro: Muscles Strength 5/5 in all 4 extremities, Sensation to light touch grossly present throughout, Cranial nerves II-XII grossly intact. No focal sensory deficits - Labs CBC & Chem 7: 03/19/19 09:19 03/18/19 17:25 Labs: Abnormal Lab Results - Last 24 Hours (Table) 03/18/19 03/18/19 03/18/19 Range/Units 17:25 17:25 17:25 RBC 4.00 L (4.30-5.90) m/uL Hgb 11.8 L (13.0-17.5) gm/dL Hct 36.3 L (39.0-53.0) % D-Dimer 1.83 H (<0.60) mg/L FEU Phosphorus 4.6 H (2.5-4.5) mg/dL AST 13 L (17-59) U/L ALT 11 L (21-72) U/L Creatine Kinase 29 L (55-170) U/L Total Protein 6.0 L (6.3-8.2) g/dL Albumin 3.3 L (3.5-5.0) g/dL Lipase (23-300) U/L 03/18/19 03/19/19 Range/Units 17:25 09:19 RBC 3.58 L (4.30-5.90) m/uL Hgb 10.3 L (13.0-17.5) gm/dL Hct 33.1 L (39.0-53.0) % D-Dimer (<0.60) mg/L FEU Phosphorus (2.5-4.5) mg/dL AST (17-59) U/L ALT (21-72) U/L Creatine Kinase (55-170) U/L Total Protein (6.3-8.2) g/dL Albumin (3.5-5.0) g/dL Lipase 17 L (23-300) U/L Assessment and Plan Assessment: Mediastinal mass with concern for underlying primary lung cancer * CT of the chest indicatingencasement of the great vessels of the trachea and also extending into the left apex addition to invasion of the mediastinum * Left cervical lymphadenopathy would be suitable for FNAS via IR * Appreciate pulmonary recommendations Left upper extremity DVT * likely secondary to underlying malignancy * Initiated on heparin drip per protocol * Hematology oncology consulted for further recommendations Hoarseness * secondary to underlying malignancy Normocytic anemia * iron studies ordered * continue follow hemoglobin disposition Anticipated discharge place: Home A total of 65 minutes was spent on the care of this complex patient more than 50% of the time was spent in counseling and care coordination.
[2019-03-19] MEDS ORDERED: NICOTINE 21MG/24HR PATCH TRANSDERM STA (16:43)
[2019-03-19] MEDS: IPRATROPIUM-ALBUTEROL 3 ML NEB INHALATION PRN ×2 (16:46→19:51)
--- NOTE | 2019-03-19 21:55 | MR ---
EXAMINATION TYPE: MR brain wo/w con DATE OF EXAM: 03/19/2019 COMPARISON: NONE HISTORY: Initial staging, lung mass TECHNIQUE: Multiplanar, multisequence images of the brain and brainstem is performed without and with IV contras t, utilizing 6.5 mL intravenous Gadavist . FINDINGS: Diffusion weighted images demonstrate no evidence of a recent infarct or other diffusion ab normality. There is no worrisome extra-axial fluid collection. Mild ventricular and sulcal prominenc e. Some tiny T2 hyperintense foci periventricular level. There is thick rim enhancing 1.9 cm left par ietal peripheral enhancing mass axial image 50 and coronal image 71 with significant surrounding vaso genic edema and sulcal effacement. No definitive additional enhancing intraparenchymal foci are prese nt. Midline structures demonstrate normal morphology. The craniocervical junction appears within normal limits. Post contrast images demonstrate no abnormal enhancement. The dural venous sinuses appear pa tent. The visualized sinuses are clear and the globes are intact. Patchy fluid signal right mastoid a ir cells. IMPRESSION: There is 1.9 cm peripheral left parietal thick rim-enhancing mass with surrounding vasoge abdiel edema is nonspecific but strongly favoring metastatic focus given patient's history.
[2019-03-19] MEDS: MELATONIN 3 MG TABLET PO SCH (22:10)
[2019-03-20] MEDS ORDERED: HYDROcodone/APAP 7.5-325MG 1 EACH TAB ONE (04:09)
[2019-03-20 08:56] LABS: Basophils % (A) 1 %; Eosinophils # (A) 0.2 k/uL (0-0.7); Eosinophils % (A) 3 %; HCT 34.5 % (39.0-53.0); HGB 10.5 gm/dL (13.0-17.5); Hypochromasia Moderate; Lymphocytes # (A) 1.6 k/uL (1.0-4.8); Lymphocytes % (A) 27 %; MCH 29.1 pg (25.0-35.0); MCHC 30.5 g/dL (31.0-37.0); MCV 95.3 fL (80.0-100.0); Mean Platelet Volume 6.4; Monocytes # (A) 0.3 k/uL (0-1.0); Monocytes % (A) 5 %; Neutrophils # (A) 3.9 k/uL (1.3-7.7); Neutrophils % (A) 64 %; Platelet Count 239 k/uL (150-450); RBC 3.61 m/uL (4.30-5.90); RDW 14.5 % (11.5-15.5); WBC 6.1 k/uL (3.8-10.6)
[2019-03-20] MEDS: HEPARIN SOD,PORK IN 0.45% NACL 25,000 UNIT in 0.45% NACL 1 250ML.BAG IV SCH (10:18)
[2019-03-20] MEDS: guaiFENesin 600 MG TABLET.ER PO SCH ×2 (10:29→21:09)
[2019-03-20] MEDS: NICOTINE 21MG/24HR PATCH TRANSDERM SCH (10:29)
--- NOTE | 2019-03-20 10:34 | P.PN ---
Subjective Progress Note Date: 03/20/19 On today's evaluation of 03/17/2019 the patient is postop day #1 following a fine-needle aspirate. The fine-needle aspirate was done by interventional radiology and awaiting final pathology results. Meanwhile the patient underwent an MRI of the brain and patient was found to have a 1.9 cm peripheral left parietal thick rim enhancing mass with vasogenic edema consistent with metastases. He is able to swallow well. His voice is hoarse. No headaches. No seizure activity. No focal neurological deficits. Objective - Vital Signs Vital signs: Vital Signs Temp 97.6 F 03/19/19 21:44 Pulse 82 03/19/19 21:44 Resp 18 03/19/19 21:44 BP 134/67 03/19/19 21:44 Pulse Ox 99 03/19/19 21:44 Intake & Output 03/19/19 03/20/19 03/20/19 18:59 06:59 18:59 Intake Total 1300 92.02 157.98 Balance 1300 92.02 157.98 Weight 63.503 kg Intake: Intake, IV Titration 600 92.02 157.98 Amount Heparin Sod,Pork in 0.45% 92.02 157.98 NaCl 25,000 unit In 0.45 % NaCl 1 250ml.bag @ 18 UNITS/KG/HR 11.431 mls/hr IV .[id number] [facility] Rx#: [id number] Sodium Chloride 0.9% 1, 600 000 ml @ 100 mls/hr IV . Q10H ONE Rx#:[id number] Oral 700 Other: Voiding Method Toilet Toilet # Voids 2 1 - Exam - Constitutional General appearance: average body habitus, cooperative, no acute distress - EENT Eyes: anicteric sclerae, EOMI ENT: hearing grossly normal, normal oropharynx - Neck lt neck/cervical area there is lymphadenopathy with a 2cm hard fixed LN Neck: lymphadenopathy - Respiratory Respiratory: right: CTA, left: diminished - Cardiovascular Rhythm: regular Heart sounds: normal: S1, S2 Abnormal Heart Sounds: no systolic murmur, no diastolic murmur, no rub, no S3 Gallop, no S4 Gallop, no click, no other leg Peripheral Edema: bilateral: None - Gastrointestinal General gastrointestinal: no absent bowel sounds, no decreased bowel sounds, no distended, no hepatomegaly, no hyperactive bowel sounds, normal bowel sounds, no organomegaly, no rigid, no scaphoid, soft, no splenomegaly, no tenderness, no umbilical hernia, no ventral hernia - Neurologic Neurologic: CNII-XII intact - Musculoskeletal Musculoskeletal: strength equal bilaterally - Psychiatric Psychiatric: A&O x's 3, appropriate affect, intact judgment & insight, extremely anxious - Labs CBC & Chem 7: 03/20/19 08:21 03/18/19 17:25 Labs: Abnormal Lab Results - Last 24 Hours (Table) 03/19/19 03/20/19 03/20/19 Range/Units 20:47 08:21 08:22 RBC 3.61 L (4.30-5.90) m/uL Hgb 10.5 L (13.0-17.5) gm/dL Hct 34.5 L (39.0-53.0) % MCHC 30.5 L (31.0-37.0) g/dL APTT 38.2 H 63.3 H (22.0-30.0) sec Assessment and Plan Plan: 1 large mediastinal mass extending to the left apex addition to invasion of the mediastinum with encasement of the great vessels in the trachea. Highly suspicious for primary bronchogenic cancer. There is also left cervical lymphadenopathy. The patient was further found to have a AVIONICS TECHNICIAN metastases with a 1.9 cm parietal lesion with vasogenic edema. He is asymptomatic in that regard. Fine-needle aspirate of the lung mass was done and final pathology still pending for now. 2 new onset hoarseness, likely secondary to mediastinal mass and involvement of the left recurrent laryngeal nerve 3 extensive DVT involving the left axillary, subclavian, cephalic and basilic veins in the left upper extremity. 4 weight-loss secondary to above 5 smoker 6 history of alcoholism Plan Awaiting final path from fine-needle aspirate. Proceed with a radiation oncology consultation for radiation treatment of his AVIONICS TECHNICIAN metastases. Awaiting final path from the fine-needle aspirate. Oncology consultation. I will continue the IV heparin for now and after the workup is complete the patient can be transitioned to oral Eliquis regarding his left upper extremity We'll continue to follow.
--- NOTE | 2019-03-20 12:45 | P.PN ---
Subjective Progress Note Date: 03/20/19 Principal diagnosis: lung mass In f/u today pt states feeling better then on admit, he is still requiring O2 for respiratory comfort, pain is managed. He is still ambulatory Objective - Vital Signs Vital signs: Vital Signs Temp 97.6 F 03/19/19 21:44 Pulse 82 03/19/19 21:44 Resp 18 03/20/19 07:10 BP 134/67 03/19/19 21:44 Pulse Ox 99 03/19/19 21:44 Intake & Output 03/19/19 03/20/19 03/20/19 18:59 06:59 18:59 Intake Total 1300 92.02 157.98 Balance 1300 92.02 157.98 Weight 63.503 kg Intake: Intake, IV Titration 600 92.02 157.98 Amount Heparin Sod,Pork in 0.45% 92.02 157.98 NaCl 25,000 unit In 0.45 % NaCl 1 250ml.bag @ 18 UNITS/KG/HR 11.431 mls/hr IV .[id number] [facility] Rx#: [id number] Sodium Chloride 0.9% 1, 600 000 ml @ 100 mls/hr IV . Q10H ONE Rx#:[id number] Oral 700 Other: Voiding Method Toilet Toilet Toilet # Voids 2 1 1 - Constitutional General appearance: Present: average body habitus, cooperative, no acute distre ss - EENT Eyes: Present: anicteric sclerae, EOMI - Neck Neck: Present: lymphadenopathy - Respiratory Respiratory: left: diminished - Cardiovascular Details: LUE swelling secondary to DVT, left chest venous congestion visible Rhythm: regular Heart sounds: normal: S1, S2 - Peripheral edema leg Peripheral Edema: bilateral: None - Gastrointestinal General gastrointestinal: Present: normal bowel sounds, soft - Neurologic Neurologic: Present: CNII-XII intact - Musculoskeletal Musculoskeletal: Present: strength equal bilaterally - Psychiatric Psychiatric: Present: A&O x's 3, appropriate affect, intact judgment & insight - Labs CBC & Chem 7: 03/20/19 08:21 03/18/19 17:25 Labs: Abnormal Lab Results - Last 24 Hours (Table) 03/19/19 03/20/19 03/20/19 Range/Units 20:47 03:30 08:21 RBC 3.61 L (4.30-5.90) m/uL Hgb 10.5 L (13.0-17.5) gm/dL Hct 34.5 L (39.0-53.0) % MCHC 30.5 L (31.0-37.0) g/dL APTT 38.2 H 67.7 H (22.0-30.0) sec 03/20/19 Range/Units 08:22 RBC (4.30-5.90) m/uL Hgb (13.0-17.5) gm/dL Hct (39.0-53.0) % MCHC (31.0-37.0) g/dL APTT 63.3 H (22.0-30.0) sec - Imaging and Cardiology MRI - head: report reviewed Assessment and Plan (1) Mass of left lung Narrative/Plan: Biopsy yesterday, pathology pending. From the imaging that is available at this time there is at least advanced disease in the chest, there is a questionable left inguinal lymph node, this may be requested to be biopsied later. MRI of the brain completed, results discussed with pt and family. A 1.9cm left parietal lobe ring enhancing lesion with vasogenic edema is noted. Radiation Oncology consulted. Saw pt with Dr. Heard. Pt is asymptomatic so no steroids have been prescribed at this time. Plan for simulation as soon as discharged. Type of XRT to be delivered will be based on path. Reviewed with pt and family most likely the diagnosis is lung primary with metastatic disease. Prognosis and treatment options will be able to be discusse d once all the information is available. PET scan will be scheduled for outpatient Current Visit: Yes Status: Acute Code(s): R91.8 - OTHER NONSPECIFIC ABNORMAL FINDING OF LUNG FIELD SNOMED Code(s): 110007658 (2) DVT (deep venous thrombosis) Narrative/Plan: Currently heparin drip. NOAC Rx verified by Case management, copay is affordable to pt Current Visit: Yes Status: Acute Priority: High Code(s): I82.409 - ACUTE EMBOLISM AND THOMBOS UNSP DEEP VN UNSP LOWER EXTREMITY SNOMED Code(s): 889993004
[2019-03-20] MEDS: IPRATROPIUM-ALBUTEROL 3 ML NEB INHALATION PRN (12:52)
[2019-03-20] MEDS: HYDROcodone/APAP 7.5-325MG 1 EACH TAB PO PRN ×2 (14:20→21:09)
--- NOTE | 2019-03-20 15:26 | P.PN ---
Subjective Progress Note Date: 03/20/19 Patient seen and examined follow-up today, family at bedside. Patient sleeping arousable but still fatigued and tired and weak, and continues to have hoarseness. MRI of the head done showing 1.9 cm peripheral left parietal rim- enhancing mass strongly suggesting metastatic disease, no seizure-like activity overnight. Postop day #1 status post FNAS pathology pending Objective - Vital Signs Vital signs: Vital Signs Temp 97.9 F 03/20/19 11:35 Pulse 80 03/20/19 13:03 Resp 22 03/20/19 11:35 BP 134/65 03/20/19 11:35 Pulse Ox 98 03/20/19 11:35 Intake & Output 03/19/19 03/20/19 03/20/19 18:59 06:59 18:59 Intake Total 1300 92.02 157.98 Balance 1300 92.02 157.98 Weight 63.503 kg Intake: Intake, IV Titration 600 92.02 157.98 Amount Heparin Sod,Pork in 0.45% 92.02 157.98 NaCl 25,000 unit In 0.45 % NaCl 1 250ml.bag @ 18 UNITS/KG/HR 11.431 mls/hr IV .[id number] [facility] Rx#: [id number] Sodium Chloride 0.9% 1, 600 000 ml @ 100 mls/hr IV . Q10H [facility] Rx#:[id number] Oral 700 Other: Voiding Method Toilet Toilet Toilet # Voids 2 1 1 - Exam Constitutional: No acute distress, conversant, pleasant, hoarse sounding voice Eyes: Anicteric sclerae, moist conjunctiva, no lid-lag, PERRLA, negative for ptosis ENMT: NC/AT,Oropharynx clear, no erythema, exudates Neck:Supple, FROM, no masses, or JVD, No carotid bruits; No thyromegaly, left cervical LAD approximately 2 cm Lungs: Clear to auscultation, Clear to percussion, Normal respiratory effort, no accessory muscle use Cardiovascular: Heart regular in rate and rhythm, No murmurs, gallops, or rubs no peripheral edema Abdominal: Soft Nontender, nom distended, no guarding, no rebound or rigidity, Normoactive bowel sounds No hepatomegaly, No splenomegaly, No palpable mass No abdominal wall hernia noted Skin: Normal temperature, tone, texture, turgor, No induration No subcutaneous nodules, No rash, lesions, No ulcers dilated spider veins in his left upper chest, Extremities:No digital cyanosis No clubbing, Pedal pulses intact and symmetrical Radial pulses intact and symmetrical Normal gait and station, No calf tenderness Psychiatric: Alert and oriented to person, place and time, Appropriate affect In tact judgement Neuro: Muscles Strength 5/5 in all 4 extremities, Sensation to light touch grossly present throughout, Cranial nerves II-XII grossly intact. No focal sensory deficits - Labs CBC & Chem 7: 03/20/19 08:21 03/18/19 17:25 Labs: Abnormal Lab Results - Last 24 Hours (Table) 03/19/19 03/20/19 03/20/19 Range/Units 20:47 03:30 08:21 RBC 3.61 L (4.30-5.90) m/uL Hgb 10.5 L (13.0-17.5) gm/dL Hct 34.5 L (39.0-53.0) % MCHC 30.5 L (31.0-37.0) g/dL APTT 38.2 H 67.7 H (22.0-30.0) sec 03/20/19 Range/Units 08:22 RBC (4.30-5.90) m/uL Hgb (13.0-17.5) gm/dL Hct (39.0-53.0) % MCHC (31.0-37.0) g/dL APTT 63.3 H (22.0-30.0) sec Assessment and Plan Assessment: Mediastinal mass with concern for underlying primary lung cancer * CT of the chest indicatingencasement of the great vessels of the trachea and a lso extending into the left apex addition to invasion of the mediastinum * Left cervical lymphadenopathy would be suitable for FNAS 03/19 via IR (pathology pending) * Appreciate pulmonary recommendations Brain metastasis * 1.9 cm peripheral left parietal ring-enhancing mass with vasogenic edema consi stent with metastasis * Likely primary bronchogenic in nature * Radiation oncology consulted for further recommendations Left upper extremity DVT * likely secondary to underlying malignancy * Initiated on heparin drip per protocol and transitioned to DOAC with eliquis today * Hematology oncology consulted for further recommendations Hoarseness * secondary to underlying malignancy Normocytic anemia * iron studies ordered * continue follow hemoglobin disposition Anticipated discharge place: Home A total of 65 minutes was spent on the care of this complex patient more than 50% of the time was spent in counseling and care coordination.
[2019-03-20 16:17] LABS: Ferritin 287.8 ng/mL (22.0-322.0); Iron Saturation 8.11 (15.00-50.00)
[2019-03-20] MEDS: IPRATROPIUM-ALBUTEROL 3 ML NEB INHALATION SCH (19:07)
[2019-03-20] MEDS: MELATONIN 3 MG TABLET PO SCH (21:08)
[2019-03-21] MEDS: HEPARIN SOD,PORK IN 0.45% NACL 25,000 UNIT in 0.45% NACL 1 250ML.BAG IV SCH (02:28)
[2019-03-21] MEDS: HYDROcodone/APAP 7.5-325MG 1 EACH TAB PO PRN ×5 (04:15→21:58)
[2019-03-21] MEDS: IPRATROPIUM-ALBUTEROL 3 ML NEB INHALATION SCH ×4 (07:15→21:23)
[2019-03-21 07:23] LABS: Basophils # (A) 0.1 k/uL (0-0.2); Basophils % (A) 2 %; Eosinophils # (A) 0.2 k/uL (0-0.7); Eosinophils % (A) 3 %; HCT 32.8 % (39.0-53.0); HGB 10.7 gm/dL (13.0-17.5); Hypochromasia Slight; Lymphocytes # (A) 1.4 k/uL (1.0-4.8); Lymphocytes % (A) 22 %; MCH 29.9 pg (25.0-35.0); MCHC 32.6 g/dL (31.0-37.0); MCV 91.8 fL (80.0-100.0); Mean Platelet Volume 5.5; Monocytes # (A) 0.4 k/uL (0-1.0); Monocytes % (A) 6 %; Neutrophils # (A) 4.2 k/uL (1.3-7.7); Neutrophils % (A) 66 %; Platelet Count 268 k/uL (150-450); RBC 3.58 m/uL (4.30-5.90); RDW 14.4 % (11.5-15.5); WBC 6.4 k/uL (3.8-10.6)
--- NOTE | 2019-03-21 08:26 | P.PN ---
Subjective Progress Note Date: 03/21/19 Principal diagnosis: lymphadenopathy Patient was seen today, easily complains of generalized pain, no chest pain no abdominal pain. His sister is at bedside. Objective - Vital Signs Vital signs: Vital Signs Temp 97.5 F L 03/21/19 04:41 Pulse 72 03/21/19 04:41 Resp 20 03/21/19 04:41 BP 123/65 03/21/19 04:41 Pulse Ox 97 03/21/19 04:41 Intake & Output 03/20/19 03/21/19 03/21/19 18:59 06:59 18:59 Intake Total 1397.98 225.865 Balance 1397.98 225.865 Intake: IV 220 Heparin Sod,Pork in 0.45% 220 NaCl 25,000 unit In 0.45 % NaCl 1 250ml.bag @ 18 UNITS/KG/HR 11.431 mls/hr IV .[id number] [facility] Rx#: [id number] Intake, IV Titration 157.98 225.865 Amount Heparin Sod,Pork in 0.45% 157.98 225.865 NaCl 25,000 unit In 0.45 % NaCl 1 250ml.bag @ 18 UNITS/KG/HR 11.431 mls/hr IV .[id number] [facility] Rx#: [id number] Oral 1020 Other: Voiding Method Toilet Toilet # Voids 3 2 - Exam Constitutional: No acute distress Eyes: Anicteric sclerae, moist conjunctiva ENMT: NC/AT Neck:Supple, FROM Lungs: Clear to auscultation, Clear to percussion, Normal respiratory effort, no accessory muscle use Cardiovascular: Heart regular in rate and rhythm, No murmurs, gallops, or rubs no peripheral edema Abdominal: Soft Nontender, nom distended, no guarding, no rebound or rigidity Skin: Normal temperature, tone, texture, turgor, + tattoos Extremities:No digital cyanosis No clubbing, Pedal pulses intact and symmetrical Radial pulses intact and symmetrical Normal gait and station Psychiatric: Alert and oriented to person, place and time, Appropriate affect Intact judgement Neuro: Muscles Strength 5/5 in all 4 extremities, Sensation to light touch grossly present throughout, Cranial nerves II-XII grossly intact. No focal sensory deficits - Labs CBC & Chem 7: 03/21/19 07:10 03/18/19 17:25 Labs: Abnormal Lab Results - Last 24 Hours (Table) 03/19/19 03/20/19 03/20/19 Range/Units 09:19 03:30 08:21 RBC 3.61 L (4.30-5.90) m/uL Hgb 10.5 L (13.0-17.5) gm/dL Hct 34.5 L (39.0-53.0) % MCHC 30.5 L (31.0-37.0) g/dL APTT 67.7 H (22.0-30.0) sec Iron 21 L (65-175) ug/dL Iron Saturation 8.11 L (15.00-50.00) 03/20/19 03/21/19 03/21/19 Range/Units 08:22 07:10 07:10 RBC 3.58 L (4.30-5.90) m/uL Hgb 10.7 L (13.0-17.5) gm/dL Hct 32.8 L (39.0-53.0) % MCHC (31.0-37.0) g/dL APTT 63.3 H 47.6 H (22.0-30.0) sec Iron (65-175) ug/dL Iron Saturation (15.00-50.00) Assessment and Plan Plan: Mediastinal mass with concern for underlying primary lung cancer * CT of the chest indicatingencasement of the great vessels of the trachea and also extending into the left apex addition to invasion of the mediastinum * Left cervical lymphadenopathy sp FNAS 03/19 via IR (pathology pending) * Appreciate pulmonary and hem/onc recommendations * pain control as indicated Brain metastasis * 1.9 cm peripheral left parietal ring-enhancing mass with vasogenic edema consistent with metastasis * Likely primary bronchogenic in nature * Radiation oncology consulted for further recommendations, will follow Left upper extremity DVT * likely secondary to underlying malignancy * Initiated on heparin drip per protocol and transitioned to DOAC with eliquis once plan is in place * Hematology oncology consulted for further recommendations appreciated Hoarseness * secondary to underlying malignancy Normocytic anemia * iron studies ordered * continue follow hemoglobin disposition Anticipated discharge place: Home in 1-2 days Discussed with the patient and his sister at bedside
[2019-03-21] MEDS: NICOTINE 21MG/24HR PATCH TRANSDERM SCH (09:11)
[2019-03-21] MEDS: DEXAMETHASONE 4 MG TAB PO SCH ×2 (09:13→21:10)
[2019-03-21] MEDS: guaiFENesin 600 MG TABLET.ER PO SCH ×2 (09:13→21:10)
--- NOTE | 2019-03-21 10:19 | P.CONS ---
History of Present Illness - Reason for Consult Consult date: 03/20/19 new lung cancer - brain metastases Requesting physician: Edgar Chauhan - Chief Complaint left upper extremity pain/swelling - History of Present Illness The patient is a 58-year-old male with a significant history of tobacco abuse who presents with evidence of a a newly diagnosed lung malignancy with likely single brain metastasis. The patient reports that he was recently living in [place], and that approximately 1 year ago he was told that he had a mass in his lung. He decided to not addressed this, and recently began developing symptoms. He notes that he has had progressive difficulty with pain and swelling in his left upper extremity. He was subsequently admitted to the hospital on March [address] angiogram of the chest revealed a 4.5 cm cavitary infiltrate in the left upper lung, with extensive mediastinal mass encasing the trachea and occluding the left pulmonary artery. A CT scan of the abdomen and pelvis was performed the same day revealing some inflammatory changes within the left inguinal area as well as some left inguinal adenopathy measuring 2.8 x 1.5 cm. The patient was able to undergo CT-guided biopsy on March 18 of the mediastinal mass, and pathology is currently pending. On March 19 Doppler ultrasound of the left upper extremity revealed extensive DVT. He subsequently underwent an MRI of the brain the same day revealing a 1.9 cm left parietal enhancing lesion with surrounding vasogenic edema. The patient notes that he does have chronic dyspnea on exertion, which she feels has been worse recently. The patient reports a frequent cough, but this is nonproductive and he denies hemoptysis. He denies difficulty with headache, nausea, vomiting, weakness or numbness/tingling of the extremities. The patient does report significant weight loss recently as well. Review of Systems Constitutional: Denies chills, Denies chronic headaches, Denies fever Eyes: denies blurred vision, denies diplopia Ears, nose, mouth and throat: Denies epistaxis Cardiovascular: Reports chest pain Respiratory: Reports cough, Reports dyspnea, Denies hemoptysis Gastrointestinal: Denies abdominal pain, Denies change in bowel habits Genitourinary: Denies flank pain Musculoskeletal: Reports myalgias (Swelling LUE) Integumentary: Reports rash (Chest - collateral vessels seen left upper chest) Neurological: Denies ataxia, Denies change in mentation, Denies change in speech, Denies confusion, Denies double vision, Denies headaches, Denies loss of vision, Denies motor disturbance, Denies numbness Psychiatric: Denies anxiety, Denies depression Past Medical History Past Medical History: Cancer, Pneumonia Additional Past Medical History / Comment(s): lung mass, COPD, smoker, history of alcoholism History of Any Multi-Drug Resistant Organisms: None Reported Past Surgical History: Appendectomy Past Anesthesia/Blood Transfusion Reactions: No Reported Reaction Past Psychological History: No Psychological Hx Reported Smoking Status: Current every day smoker Past Alcohol Use History: Occasional Additional Past Alcohol Use History / Comment(s): half a pack cigarrettes, per patient many year 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 - Past Family History Mother Family Medical History: Cancer Additional Family Medical History / Comment(s): possible brain cancer Medications and Allergies Home Medications Medication Instructions Recorded Confirmed Type Albuterol Inhaler [Ventolin Hfa 1 - 2 puff INHALATION RT-Q6H PRN 03/18/19 03/18/19 History Inhaler] oxyCODONE HCL [oxyCODONE HCL (IR)] 15 mg PO TID 03/18/19 03/18/19 History Apixaban [Eliquis Starter Pack 0 mg PO DIRECTED 30 Days #1 pack 03/19/19 Rx (for VTE)] Dexamethasone 4 mg PO BID #28 tablet 03/21/19 Rx Allergies Allergy/AdvReac Type Severity Reaction Status Date / Time metronidazole [From Flagyl] Allergy Swelling Verified 03/18/19 21:28 Physical Exam Vitals: Vital Signs Temp Pulse Pulse Pulse Resp BP Pulse Ox 03/21/19 04:41 97.5 F L 72 20 123/65 97 03/20/19 21:00 98.1 F 81 20 123/68 100 03/20/19 19:21 81 03/20/19 19:09 80 97 03/20/19 16:00 82 73 22 03/20/19 13:03 80 03/20/19 11:35 97.9 F 73 22 134/65 98 Intake and Output 03/20/19 03/21/19 03/21/19 22:59 06:59 14:59 Intake Total 225.865 240 Balance 225.865 240 Intake: Intake, IV Titration 225.865 Amount Heparin Sod,Pork in 0.45% 225.865 NaCl 25,000 unit In 0.45 % NaCl 1 250ml.bag @ 18 UNITS/KG/HR 11.431 mls/hr IV .[id number] [facility] Rx#: [id number] Oral 240 Other: Voiding Method Toilet Toilet # Voids 2 2 - Constitutional General appearance: average body habitus, no no acute distress - EENT Eyes: EOMI, PERRLA ENT: hearing grossly normal - Neck Neck: no lymphadenopathy, normal ROM - Respiratory Respiratory: bilateral: diminished, rhonchi - Cardiovascular Rhythm: regular - Gastrointestinal General gastrointestinal: no distended, no tenderness - Genitourinary Male genitourinary: left inguinal lymphadenopathy - Integumentary Integumentary: rash (collateral vessels left chest-upper) - Neurologic Neurologic: CNII-XII intact - Musculoskeletal Musculoskeletal: strength equal bilaterally - Psychiatric Psychiatric: A&O x's 3, appropriate affect Results CBC & Chem 7: 03/21/19 07:10 03/18/19 17:25 Labs: Abnormal Lab Results - Last 24 Hours (Table) 03/19/19 03/20/19 03/21/19 Range/Units 09:19 03:30 07:10 RBC 3.58 L (4.30-5.90) m/uL Hgb 10.7 L (13.0-17.5) gm/dL Hct 32.8 L (39.0-53.0) % APTT 67.7 H (22.0-30.0) sec Iron 21 L (65-175) ug/dL Iron Saturation 8.11 L (15.00-50.00) 03/21/19 Range/Units 07:10 RBC (4.30-5.90) m/uL Hgb (13.0-17.5) gm/dL Hct (39.0-53.0) % APTT 47.6 H (22.0-30.0) sec Iron (65-175) ug/dL Iron Saturation (15.00-50.00) CT scan - abdomen: report reviewed, image reviewed CT scan - chest: report reviewed, image reviewed MRI - head: report reviewed, image reviewed Assessment and Plan Plan: The patient is a 58-year-old male with a significant history of tobacco abuse who presents with a left upper lung mass with extensive mediastinal disease. He has DVT within the left upper extremity resulting in swelling. He was found to have a single brain metastasis and MRI on the left parietal region. 1. Likely lung primary malignancy: Awaiting pathology, biopsy 03/19. 2. Brain metastasis: I discussed with the patient and his family that on MRI there was evidence of an approximate 2 cm left parietal lesion with vasogenic edema consistent with metastatic disease to the brain. I explained that provided the patient's biopsy did not show small cell lung cancer, that he would be a good candidate for radiosurgery to this lesion. I explained this would entail undergoing CT simulation for treatment planning making a mask. I d iscussed possible side effects of this treatment which include, but are not limited to; fatigue, skin irritation, reversible alopecia, nausea, vomiting, focal FARM OPERATOR deficits, and late effects such as radionecrosis. I explained that if this represented small cell lung cancer, a more protracted treatment with whole brain radiotherapy would be recommended. The patient has no evidence of hemorrhagic component, and therefore I do not believe that his anticoagulation should be held for his upper extremity extensive DVT. Time with Patient: Greater than 30
--- NOTE | 2019-03-21 14:52 | P.PN ---
Subjective Progress Note Date: 03/21/19 Principal diagnosis: Large mediastinal mass The patient is seen today 03/21/2019 in follow-up on the regular medical floor. He is currently awake and alert in no acute distress. Resting comfortably in bed. Maintaining O2 saturations in the 90s on room air. He's afebrile. He modynamically stable. White count 6.4. Hemoglobin 10.7. He remains on a heparin drip. Bronchodilators. NicoDerm patch in place. Fine-needle aspirate of the mediastinal mass revealed necrotic pulmonary nodule consistent with necrotic neoplasm, insufficient for further definitive characterization. Objective - Vital Signs Vital signs: Vital Signs Temp 97.5 F L 03/21/19 04:41 Pulse 77 03/21/19 11:09 Resp 18 03/21/19 08:10 BP 123/65 03/21/19 04:41 Pulse Ox 97 03/21/19 04:41 Intake & Output 03/20/19 03/21/19 03/21/19 18:59 06:59 18:59 Intake Total 1397.98 225.865 480 Balance 1397.98 225.865 480 Intake: IV 220 Heparin Sod,Pork in 0.45% 220 NaCl 25,000 unit In 0.45 % NaCl 1 250ml.bag @ 18 UNITS/KG/HR 11.431 mls/hr IV .[id number] [facility] Rx#: [id number] Intake, IV Titration 157.98 225.865 Amount Heparin Sod,Pork in 0.45% 157.98 225.865 NaCl 25,000 unit In 0.45 % NaCl 1 250ml.bag @ 18 UNITS/KG/HR 11.431 mls/hr IV .[id number] [facility] Rx#: [id number] Oral 1020 480 Other: Voiding Method Toilet Toilet Toilet # Voids 3 2 - Exam - Constitutional General appearance: average body habitus, cooperative, no acute distress, on room air - EENT Eyes: anicteric sclerae, EOMI ENT: hearing grossly normal, normal oropharynx - Neck lt neck/cervical area there is lymphadenopathy with a 2cm hard fixed LN Neck: lymphadenopathy - Respiratory Respiratory: right: CTA, left: diminished - Cardiovascular Rhythm: regular Heart sounds: normal: S1, S2 Abnormal Heart Sounds: no systolic murmur, no diastolic murmur, no rub, no S3 Gallop, no S4 Gallop, no click, no other leg Peripheral Edema: bilateral: None - Gastrointestinal General gastrointestinal: no absent bowel sounds, no decreased bowel sounds, no distended, no hepatomegaly, no hyperactive bowel sounds, normal bowel sounds, no organomegaly, no rigid, no scaphoid, soft, no splenomegaly, no tenderness, no umbilical hernia, no ventral hernia - Neurologic Neurologic: CNII-XII intact - Musculoskeletal Musculoskeletal: strength equal bilaterally - Psychiatric Psychiatric: A&O x's 3, appropriate affect, intact judgment & insight, anxious - Labs CBC & Chem 7: 03/21/19 07:10 03/18/19 17:25 Labs: Abnormal Lab Results - Last 24 Hours (Table) 03/19/19 03/21/19 03/21/19 Range/Units 09:19 07:10 07:10 RBC 3.58 L (4.30-5.90) m/uL Hgb 10.7 L (13.0-17.5) gm/dL Hct 32.8 L (39.0-53.0) % APTT 47.6 H (22.0-30.0) sec Iron 21 L (65-175) ug/dL Iron Saturation 8.11 L (15.00-50.00) Assessment and Plan Assessment: Impression: 1 large mediastinal mass extending to the left apex addition to invasion of the mediastinum with encasement of the great vessels in the trachea. Highly suspicious for primary bronchogenic cancer. There is also left cervical lymphadenopathy. The patient was further found to have a DISPATCH CLERK metastases with a 1.9 cm parietal lesion with vasogenic edema. He is asymptomatic in that regard. He was seen and evaluated by radiation oncology. Fine-needle aspirate of the lung mass was done and pathology reveals necrotic neoplasm but unable to characterize. 2 new onset hoarseness, likely secondary to mediastinal mass and involvement of the left recurrent laryngeal nerve 3 extensive DVT involving the left axillary, subclavian, cephalic and basilic veins in the left upper extremity. On a heparin drip. 4 weight-loss secondary to above 5 smoker 6 history of alcoholism Plan The patient was seen and evaluated by Dr. Ulloa. Pathology results reviewed. He did have further discussion with Dr. Chauhan. We may need to proceed with bronchoscopy with Dixon needle aspirate of the mediastinal adenopathy. We will have further discussion with the patient and his family and make further recommendations based on their wishes. We will continue to follow and make further recommendations based on his clinical status. I, the cosigning physician, performed a history & physical examination of the patient. Lungs sounds are clear, diminished in the left. Maintaining good O2 saturations in the 90s on room air. I discussed the assessment and plan of care with my nurse practitioner, Veena Marie. I attest to the above note as dictated by her.
[2019-03-21] MEDS: MELATONIN 3 MG TABLET PO SCH (21:58)
[2019-03-22] MEDS: HYDROcodone/APAP 7.5-325MG 1 EACH TAB PO PRN (04:10)
[2019-03-22] MEDS: HEPARIN SOD,PORK IN 0.45% NACL 25,000 UNIT in 0.45% NACL 1 250ML.BAG IV SCH (06:30)
[2019-03-22] MEDS: IPRATROPIUM-ALBUTEROL 3 ML NEB INHALATION SCH ×4 (07:23→19:50)
[2019-03-22] MEDS: ALPRAZolam 0.5 MG TAB PO PRN (08:17)
--- NOTE | 2019-03-22 09:38 | P.PN ---
Subjective Progress Note Date: 03/22/19 Principal diagnosis: lymphadenopathy feels ok today , complaining of noise from construction. No CP no abd pain Objective - Vital Signs Vital signs: Vital Signs Temp 97.7 F 03/22/19 04:51 Pulse 78 03/22/19 04:51 Resp 20 03/22/19 04:51 BP 112/61 03/22/19 04:51 Pulse Ox 99 03/22/19 04:51 Intake & Output 03/21/19 03/22/19 03/22/19 18:59 06:59 18:59 Intake Total 1874 1352 Balance 1874 1352 Intake: IV 194 152 Heparin Sod,Pork in 0.45% 194 152 NaCl 25,000 unit In 0.45 % NaCl 1 250ml.bag @ 18 UNITS/KG/HR 11.431 mls/hr IV .[id number] [facility] Rx#: [id number] Oral 1680 1200 Other: Voiding Method Toilet Toilet # Voids 2 1 - Exam Constitutional: No acute distress Eyes: Anicteric sclerae, moist conjunctiva ENMT: NC/AT Neck:Supple Lungs: Clear to auscultation, Clear to percussion, Normal respiratory effort, no accessory muscle use Cardiovascular: Heart regular in rate and rhythm, No murmurs, gallops, or rubs no peripheral edema Abdominal: Soft Nontender, nom distended Skin: Normal temperature, tone, texture + tattoos Extremities:No digital cyanosis No clubbing, Pedal pulses intact and symmetrical Radial pulses intact and symmetrical Normal gait and station Psychiatric: Alert and oriented to person, place and time Neuro: Muscles Strength 5/5 in all 4 extremities, Sensation to light touch grossly present throughout, Cranial nerves II-XII grossly intact. No focal sensory deficits - Labs CBC & Chem 7: 03/21/19 07:10 03/18/19 17:25 Assessment and Plan Plan: Mediastinal mass with concern for underlying primary lung cancer * CT of the chest indicatingencasement of the great vessels of the trachea and also extending into the left apex addition to invasion of the mediastinum * Left cervical lymphadenopathy sp FNAS 03/19 via IR (pathology necrotic neoplasm but unable to characterize) * Appreciate pulmonary and hem/onc recommendations * pain control as indicated * Bronchoscopy today Brain metastasis * 1.9 cm peripheral left parietal ring-enhancing mass with vasogenic edema consistent with metastasis * Likely primary bronchogenic in nature * Radiation oncology consulted , recommendations appreciated. Left upper extremity DVT * likely secondary to underlying malignancy * Initiated on heparin drip per protocol and transitioned to DOAC with eliquis once adequate. * Hematology oncology consulted for further recommendations, input appreciated Hoarseness * secondary to underlying malignancy Normocytic anemia * iron studies ordered * continue follow hemoglobin disposition Anticipated discharge place: Home in 1-2 days Discussed with the patient and his family at bedside
[2019-03-22 10:10] LABS: Basophils % (A) 0 %; Eosinophils % (A) 0 %; HCT 33.8 % (39.0-53.0); HGB 10.8 gm/dL (13.0-17.5); Lymphocytes # (A) 1.2 k/uL (1.0-4.8); Lymphocytes % (A) 13 %; MCH 29.3 pg (25.0-35.0); MCHC 32.1 g/dL (31.0-37.0); MCV 91.4 fL (80.0-100.0); Mean Platelet Volume 6.5; Monocytes # (A) 0.4 k/uL (0-1.0); Monocytes % (A) 4 %; Neutrophils # (A) 7.6 k/uL (1.3-7.7); Neutrophils % (A) 82 %; Platelet Count 273 k/uL (150-450); RBC 3.69 m/uL (4.30-5.90); RDW 14.4 % (11.5-15.5); WBC 9.3 k/uL (3.8-10.6)
[2019-03-22] MEDS: guaiFENesin 600 MG TABLET.ER PO SCH ×2 (10:59→23:09)
[2019-03-22] MEDS: DEXAMETHASONE 4 MG TAB PO SCH ×2 (11:01→23:09)
[2019-03-22] MEDS ORDERED: LORazepam 2 MG/ML INJ IV STA (11:19)
[2019-03-22 11:24] LABS: ALT 26 U/L (21-72); AST 21 U/L (17-59); African American GFR (CKD) >90 (>60 ml/min/1.73 sqM); Albumin 3.4 g/dL (3.5-5.0); Alkaline Phosphatase 94 U/L (38-126); Anion Gap 7 mmol/L; Blood Urea Nitrogen 15 mg/dL (9-20); Calcium 8.9 mg/dL (8.4-10.2); Carbon Dioxide 26 mmol/L (22-30); Chloride 105 mmol/L (98-107); Glucose 114 mg/dL (74-99); Potassium 4.5 mmol/L (3.5-5.1); Sodium 138 mmol/L (137-145); Total Bilirubin 0.3 mg/dL (0.2-1.3); Total Protein 6.3 g/dL (6.3-8.2)
[2019-03-22] MEDS ORDERED: LORazepam 2 MG/ML INJ IV PRN ×2 (12:56)
[2019-03-22] MEDS ORDERED: KETAMINE 10 MG/ML 20 ML VIAL ONE (13:00)
[2019-03-22] MEDS ORDERED: fentaNYL (PF) 50 MCG/ML 2 ML AMP ONE (13:00)
[2019-03-22] MEDS ORDERED: MIDAZOLAM 2 MG/2 ML VIAL ONE (13:00)
[2019-03-22] MEDS ORDERED: IV FLUID CONTINUATION 1,000 ML IV ONE (13:00)
[2019-03-22] MEDS ORDERED: PROPOFOL 10 MG/ML 20 ML VIAL IV ONE (13:00)
[2019-03-22] MEDS ORDERED: LIDOCAINE 2% INJ 20 MG/ML INTRATRACH ONE ×3 (13:06→13:07)
--- NOTE | 2019-03-22 13:14 | P.PN ---
Subjective Progress Note Date: 03/22/19 Principal diagnosis: Large mediastinal mass The patient is seen today 03/21/2019 in follow-up on the regular medical floor. He is currently awake and alert in no acute distress. Resting comfortably in bed. Maintaining O2 saturations in the 90s on room air. He's afebrile. Hem odynamically stable. White count 6.4. Hemoglobin 10.7. He remains on a heparin drip. Bronchodilators. NicoDerm patch in place. Fine-needle aspirate of the mediastinal mass revealed necrotic pulmonary nodule consistent with necrotic neoplasm, insufficient for further definitive characterization. On 03/22/2019 patient seen in follow-up on medical surgical floor. His been nothing by mouth since midnight for bronchoscopy with fine-needle biopsy of the mediastinal mass, patient's fine-needle aspirate biopsy that was done transthoracically by the device the radiology was nondiagnostic feeling necrotic pulmonary nodule consistent with necrotic neoplasm and this was insufficient for further definitive characterization. 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 he received a dose of Ativan as he was becoming quite agitated and verbally aggressive with the staff in regards to being kept nothing by mouth and being woken up several early. His heparin will be put on hold 2 hours prior to the procedure. Objective - Vital Signs Vital signs: Vital Signs Temp 97.7 F 03/22/19 04:51 Pulse 77 03/22/19 08:00 Resp 20 03/22/19 08:00 BP 112/61 03/22/19 04:51 Pulse Ox 99 03/22/19 09:42 Intake & Output 03/21/19 03/22/19 03/22/19 18:59 06:59 18:59 Intake Total 1874 1602 72.649 Balance 1874 1602 72.649 Weight 63.503 kg Intake: IV 194 152 Heparin Sod,Pork in 0.45% 194 152 NaCl 25,000 unit In 0.45 % NaCl 1 250ml.bag @ 18 UNITS/KG/HR 11.431 mls/hr IV .[id number] [facility] Rx#: [id number] Intake, IV Titration 250 72.649 Amount Heparin Sod,Pork in 0.45% 250 72.649 NaCl 25,000 unit In 0.45 % NaCl 1 250ml.bag @ 18 UNITS/KG/HR 11.431 mls/hr IV .[id number] [facility] Rx#: [id number] Oral 1680 1200 Other: Voiding Method Toilet Toilet Toilet # Voids 2 1 - Exam GENERAL EXAM: Alert, pleasant, 58-year-old white male on room air, with pulse ox of 99% comfortable in no apparent distress. HEAD: Normocephalic/atraumatic. EYES: Normal reaction of pupils, equal size. Conjunctiva pink, sclera white. NOSE: Clear with pink turbinates. THROAT: No erythema or exudates. NECK: No masses, no JVD, no thyroid enlargement, no adenopathy. CHEST: No chest wall deformity. Symmetrical expansion. LUNGS: Equal air entry with no crackles, wheeze, rhonchi or dullness. CVS: Regular rate and rhythm, normal S1 and S2, no gallops, no murmurs, no rubs ABDOMEN: Soft, nontender. No hepatosplenomegaly, normal bowel sounds, no guarding or rigidity. EXTREMITIES: No clubbing, no edema, no cyanosis, 2+ pulses and upper and lower extremities. MUSCULOSKELETAL: Muscle strength and tone normal. SPINE: No scoliosis or deformity SKIN: No rashes CENTRAL NERVOUS SYSTEM: Alert and oriented -3. No focal deficits, tone is normal in all 4 extremities. PSYCHIATRIC: Alert and oriented -3. Appropriate affect. Intact judgment and insight. - Labs CBC & Chem 7: 03/22/19 09:04 03/22/19 10:50 Labs: Abnormal Lab Results - Last 24 Hours (Table) 03/22/19 03/22/19 03/22/19 Range/Units 09:04 09:04 10:50 RBC 3.69 L (4.30-5.90) m/uL Hgb 10.8 L (13.0-17.5) gm/dL Hct 33.8 L (39.0-53.0) % APTT 39.5 H (22.0-30.0) sec Glucose 114 H (74-99) mg/dL Albumin 3.4 L (3.5-5.0) g/dL Assessment and Plan Plan: 1 large mediastinal mass extending to the left apex addition to invasion of the mediastinum with encasement of the great vessels in the trachea. Highly suspicious for primary bronchogenic cancer. There is also left cervical lymphadenopathy. The patient was further found to have a OR DIRECTOR metastases with a 1.9 cm parietal lesion with vasogenic edema. He is asymptomatic in that regard. He was seen and evaluated by radiation oncology. Fine-needle aspirate of the lung mass was done and pathology reveals necrotic neoplasm but unable to characterize. 2 new onset hoarseness, likely secondary to mediastinal mass and involvement of the left recurrent laryngeal nerve 3 extensive DVT involving the left axillary, subclavian, cephalic and basilic veins in the left upper extremity. On a heparin drip. 4 weight-loss secondary to above 5 smoker 6 history of alcoholism Plan: We'll proceed with bronchoscopy and biopsy of the mass, heparin drip has been on hold. Hemodynamically stable, he denied any worsening dyspnea, vital signs have been stable overnight. He is agreeable with the plan. Possibility of being able to discharge home after the procedure if he remains stable. I performed a history & physical examination of the patient and discussed their management with my nurse practitioner, Leonie Verma. I reviewed the nurse practitioner's note and agree with the documented findings and plan of care. Lung sounds are positive for diminished lung sounds. The findings and the impression was discussed with the patient. I attest to the documentation by the nurse practitioner. Time with Patient: Less than 30
[2019-03-22] MEDS: MULTIVITAMINS, THERA 1 EACH TAB PO SCH (13:45)
--- NOTE | 2019-03-22 13:48 | CDI ---
Documentation Clarification Form Date: 03/25/2019 1:35:45 PM From: Bailee CaballeroLobo [facility], CCDS Admit Date: 03/19/2019 2:55:00 PM Patient Name: Kannan Patel Visit Number: [id number] Discharge Date: ATTENTION: The Clinical Documentation Specialists (CDI) and [facility] Coding Staff appreciate your assistance in clarifying documentation. Please respond to the clarification below the line at the bottom and electronically sign. The CDI & [facility] Coding staff will review the response and follow-up if needed. Please note: Queries are made part of the Legal Health Record. If you have any questions, please contact the author of this message via ITS. Dr. Krysta Owens: A diagnosis of anemia lacks specificity to accurately reflect your patients severity of condition and clarification is needed. Per the History & Physical & subsequent progress note: "Anemia likely secondary to most likely....." (left blank) History/Risk Factors: Smoker, alcohol abuse, Pneumonia, Lung & throat cancer, damaged vocal cords. Clinical indicators: Presented with SOB, CT chest found a mass encasing great vessels & trachea, patient is known to have cancer of unknown primary suspect to have advanced cancer with metastasis. Also has LUE DVT. Hemoglobin: 11.8 - 10.3 - 10.5 - 10.7 - 10.8 Hematocrit: 36.2 - 33.1 - 34.5 - 32.8 - 33.8 Iron studies 03/19: Iron 21*, TIBC 259, Iron sat 8.11*, Ferritin 287.8 Treatment: H/H, IV Dilaudid, IV fluid bolus, IV fluid rate 100, INH Albuterol, Nicotine patch, IV Heparin drip, CIWA protocol. In order to capture the severity of condition, please clarify the type of anemia and etiology if known: Acute blood loss anemia Acute on chronic blood loss anemia Chronic blood loss anemia Iron deficiency anemia Hemolytic anemia Drug induced anemia Anemia due to malignancy Nutritional anemia Unable to determine Other, please specify (Last Revision: March 2017) MTDD
[2019-03-22] MEDS: LORazepam 2 MG/ML INJ IV PRN ×2 (14:15→15:53)
[2019-03-22] MEDS: NICOTINE 21MG/24HR PATCH TRANSDERM SCH (16:36)
[2019-03-22] MEDS: PANTOPRAZOLE 40 MG TABLET PO SCH (16:36)
[2019-03-22] MEDS: THIAMINE 100 MG TAB PO SCH (17:36)
[2019-03-22] MEDS: ENOXAPARIN 60 MG/0.6 ML SYRINGE SQ SCH (23:06)
[2019-03-22] MEDS: MELATONIN 3 MG TABLET PO SCH (23:09)
--- NOTE | 2019-03-23 01:49 | P.MHFACE ---
Face to Face Eval of Restraint - Evaluation Patient's Immediate Situation: Endangers self safety, Endangers staff safety Patient's Reaction to the Intervention: Appropriate Patient's Medical & Behavioral Condition: Sleeping Need to Continue or Terminate Restraint or Seclusion: Terminate Need to Continue or Terminate Restraint/Seclusion - Comment: Since patient currently asleep, will discontinue restraints and only use if absolutely necessary.
[2019-03-23 08:04] LABS: ALT 87 U/L (21-72); AST 111 U/L (17-59); African American GFR (CKD) >90 (>60 ml/min/1.73 sqM); Albumin 3.6 g/dL (3.5-5.0); Alkaline Phosphatase 99 U/L (38-126); Anion Gap 6 mmol/L; Blood Urea Nitrogen 18 mg/dL (9-20); Calcium 9.4 mg/dL (8.4-10.2); Carbon Dioxide 28 mmol/L (22-30); Chloride 106 mmol/L (98-107); Glucose 92 mg/dL (74-99); Potassium 4.2 mmol/L (3.5-5.1); Sodium 140 mmol/L (137-145); Total Bilirubin 0.4 mg/dL (0.2-1.3); Total Protein 6.5 g/dL (6.3-8.2)
[2019-03-23] MEDS: PANTOPRAZOLE 40 MG TABLET PO SCH (08:25)
[2019-03-23] MEDS: THIAMINE 100 MG TAB PO SCH ×2 (08:25→16:07)
[2019-03-23] MEDS: guaiFENesin 600 MG TABLET.ER PO SCH ×2 (08:26→20:47)
[2019-03-23] MEDS: DEXAMETHASONE 4 MG TAB PO SCH ×2 (08:26→20:47)
[2019-03-23] MEDS: MULTIVITAMINS, THERA 1 EACH TAB PO SCH (08:26)
[2019-03-23 08:33] LABS: Basophils # (A) 0.1 k/uL (0-0.2); Basophils % (A) 1 %; Eosinophils # (A) 0.1 k/uL (0-0.7); Eosinophils % (A) 1 %; HCT 35.8 % (39.0-53.0); HGB 11.4 gm/dL (13.0-17.5); Hypochromasia Slight; Lymphocytes # (A) 2.5 k/uL (1.0-4.8); Lymphocytes % (A) 29 %; MCH 29.5 pg (25.0-35.0); MCHC 31.8 g/dL (31.0-37.0); MCV 92.9 fL (80.0-100.0); Mean Platelet Volume 5.7; Monocytes # (A) 0.5 k/uL (0-1.0); Monocytes % (A) 5 %; Neutrophils # (A) 5.3 k/uL (1.3-7.7); Neutrophils % (A) 62 %; Platelet Count 320 k/uL (150-450); RBC 3.85 m/uL (4.30-5.90); RDW 14.5 % (11.5-15.5); WBC 8.6 k/uL (3.8-10.6)
[2019-03-23] MEDS: IPRATROPIUM-ALBUTEROL 3 ML NEB INHALATION SCH ×4 (09:39→20:10)
[2019-03-23] MEDS: NICOTINE 21MG/24HR PATCH TRANSDERM SCH (10:00)
--- NOTE | 2019-03-23 10:21 | P.PN ---
Subjective Progress Note Date: 03/23/19 Principal diagnosis: Shortness of breath Patient is a 58-year-old male with a past medical history of lung and throat cancer, tobacco abuse, and chronic vocal cord impairment who initially presented with dyspnea. Found to have significant pulmonary mass. Status post CT-guided lung biopsy that showed necrotic neoplasm. Brought with biopsy results pending. MRI brain showed 1.9 cm lesion with surrounding vasogenic edema. Patient became acutely agitated on the evening of 03/22. Apparently he's made threats of killing people to his sister. Also threatened hospital staff. Petition completed by sister. Patient seen and examined at bedside. He is sleeping and initially does not want to arouse to verbal stimuli. However he then opens his eyes and appears angry and states "what". He denies any chest pain or shortness of breath. He is requesting to be discharged. When I ask why he states "because I want to". He then denies knowing the presence of cancer needing treatment. He states [facility] When I asked him why he reportedly [facility] he states that they'll know what to do with you. He states that he is not currently a patient of the [facility] or active with them. When I ask why he is upset he states it's not a good story and refuses to elaborate. When I state that I would like him to stay to see psychiatry he becomes increasingly agitated and strikes the bed and tells me to "get out". Patient refuses physical exam. Objective - Vital Signs Vital signs: Vital Signs Temp 97.2 F L 03/23/19 05:03 Pulse 64 03/23/19 05:03 Resp 16 03/23/19 05:03 BP 107/57 03/23/19 05:03 Pulse Ox 94 L 03/23/19 05:03 Intake & Output 03/22/19 03/23/19 03/23/19 18:59 06:59 18:59 Intake Total 832.649 200 Balance 832.649 200 Weight 63.503 kg Intake: IV 700 Intake, IV Titration 72.649 Amount Heparin Sod,Pork in 0.45% 72.649 NaCl 25,000 unit In 0.45 % NaCl 1 250ml.bag @ 18 UNITS/KG/HR 11.431 mls/hr IV .[id number] [facility] Rx#: [id number] Oral 60 200 Other: Voiding Method Toilet Toilet # Voids 2 2 - Exam General: non toxic, no distress, appears at stated age Head: atraumatic, normocephalic, symmetric Eyes: EOMI, no lid lag, anicteric sclera Neuro: moving all 4 extremities independently, speech intact, no tremors Psych: Awake, refuses to answer questions appropriately, easily agitated and volatile Patient refuses formal physical exam. - Labs CBC & Chem 7: 03/23/19 07:07 03/23/19 07:07 Labs: Abnormal Lab Results - Last 24 Hours (Table) 03/22/19 03/23/19 03/23/19 Range/Units 10:50 07:07 07:07 RBC 3.85 L (4.30-5.90) m/uL Hgb 11.4 L (13.0-17.5) gm/dL Hct 35.8 L (39.0-53.0) % Glucose 114 H (74-99) mg/dL AST 111 H (17-59) U/L ALT 87 H (21-72) U/L Albumin 3.4 L (3.5-5.0) g/dL Assessment and Plan Assessment: Acute delirium with aggression -Await psychiatry recommendations -Patient does not seem to comprehend the severity of his threats, and need for continuing treatment therefore certification completed-patient determined not to have decision-making capacity secondary to unreasonable thought per psychiatry. Patient initiated on Seroquel and Haldol along with Ativan. 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 Repeat biopsy pending. -Seen by radiation oncology and depending results of biopsy patient will either receive focused radiation therapy or hold brain radiation. Patient was placed on Decadron twice daily. -Oncology recommendations appreciated -Pain control Left upper extremity DVT -Suspect provoked by malignancy -Currently on Lovenox. However patient is refusing treatment at this time. -Anticoagulation okay with radiation oncology Anemia, unable to determine etiology -Iron studies normal -Undetermined etiology -Oncology recommendations Hoarseness -Likely secondary mild to malignancy Cachexia - supportive care - Nutritional support Tobacco abuse -Cessation Alcohol abuse -[facility] protocol -Thiamine, multivitamin, folic acid DVT prophylaxis: on full dose lovenox Discussed with: Patient, nursing, ACRN, psych, Oncology, Pulmonary Anticipated discharge: 1-[address]: MHU vs home A total of 35 minutes was spent on the care of this complex patient more than 50% of the time was spent in counseling and care coordination.
[2019-03-23] MEDS: ENOXAPARIN 60 MG/0.6 ML SYRINGE SQ SCH ×2 (11:49→20:47)
[2019-03-23] MEDS ORDERED: HALOPERIDOL LACTATE 5 MG/ML 1 ML VIAL IM PRN (13:18)
[2019-03-23] MEDS ORDERED: LORazepam 2 MG/ML INJ IM PRN (13:19)
--- NOTE | 2019-03-23 14:07 | P.PCN ---
Date of Procedure: 03/22/19 Preoperative Diagnosis: Large mediastinal mass Postoperative Diagnosis: Large mediastinal mass in addition to significant endobronchial narrowing of the distal left mainstem bronchus with tumor invading the secondary ginette the to the left upper lobe and left lower lobe causing significant extrinsic compression and endobronchial irregularities. Procedure(s) Performed: Chest bronchial needle aspirate of mediastinal mass, and the bronchial biopsies of abnormal tumor and the secondary ginette at the level of the left lung, bronchioloalveolar lavage of the left lower lobe. Anesthesia: MAC Surgeon: Js Ulloa Tailor [employer] Alteration #1: Veena Marie Estimated Blood Loss (ml): 5 Pathology: other Condition: stable Disposition: floor Operative Findings: This procedure was done in the endoscopy suite. Anesthetics was administered by anesthesia the bedside. After achieving adequate sedation, the flexible bronchoscope was introduced through the right nostril was advanced upper airway. Examination of the posterior oropharynx, larynx, epiglottis and vocal cords was done. The pharyngeal structures were within normal limits. Epiglottis was within normal. The vallecula and the arytenoids were normal. The left vocal cord was paralyzed completely as no mobility was noted. Right vocal cord mobility was normal. Accordingly, a total of 2 mL of 1% lidocaine was applied to the vocal cords and the voice box and following that the patient was intub ated with the bronchoscope was moved asked to vocal cords into the upper airway. Examination of the second bronchial tree was done. Trachea was patent and within normal limits. Examination of the right side including the right mainstem bronchus, right upper lobe bronchus, bronchus intermedius, right middle lobe and the right lower lobe bronchus. All of these airways were patent and within normal limits. Bronchoscope was removed to the left. As the bronchoscope was being advanced into the left mainstem bronchus, the left mainstem bronchus was being gradually tapered off and the distal part of the left mainstem bronchus was involved with endobronchial irregularities and there was extrinsic compression and some endobronchial fullness and irregular mucosa consistent with malignancy. The ginette between the left upper and left lower lobe was quite swollen and thickened and irregular and was also involved with tumor. Left upper lobe bronchus and the left lower lobe bronchus orifice were significantly narrowed probably more than 50% of his normal caliber. Nevertheless, I was able to pass the bronchoscope and visualized left upper lobe and left lower lobe bronchus. Bronchoscope was then moved to the distaltrachea and using a 19-gauge cytology and 21-gauge histology the transbronchial needle aspirate of the mediastinal mass was done using the anterior and the right lateral tracheal wall. Following that, the bronchoscope was moved to the left mainstem bronchus and transported needle aspirate of the secondary ginette was done. Anabolic the biopsy of the secondary ginette was also done. At the completion of the procedure a lavage of the left lower lobe was done but a total of 60 mL of fluid was infused and 25 mL was aspirated. No complications. Amount of bleeding was less than 5 ML's. Bronchoscope was removed and the patient was transferred to recovery in stable condition.
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
[2019-03-23] MEDS: QUEtiapine 50 MG TAB PO SCH ×2 (18:44→20:47)
[2019-03-23] MEDS: MELATONIN 3 MG TABLET PO SCH (20:47)
[2019-03-24] MEDS: PANTOPRAZOLE 40 MG TABLET PO SCH (07:20)
[2019-03-24] MEDS: THIAMINE 100 MG TAB PO SCH ×2 (07:20→16:20)
[2019-03-24] MEDS: MULTIVITAMINS, THERA 1 EACH TAB PO SCH (07:21)
[2019-03-24] MEDS: IPRATROPIUM-ALBUTEROL 3 ML NEB INHALATION SCH ×4 (08:39→19:16)
[2019-03-24] MEDS: ENOXAPARIN 60 MG/0.6 ML SYRINGE SQ SCH ×2 (09:48→20:55)
[2019-03-24] MEDS: DEXAMETHASONE 4 MG TAB PO SCH ×2 (09:48→20:55)
[2019-03-24] MEDS: QUEtiapine 50 MG TAB PO SCH ×2 (09:49→20:55)
[2019-03-24] MEDS: FOLIC ACID 1 MG TAB PO SCH (09:49)
[2019-03-24] MEDS: guaiFENesin 600 MG TABLET.ER PO SCH ×2 (09:49→20:55)
[2019-03-24] MEDS: NICOTINE 21MG/24HR PATCH TRANSDERM SCH (11:26)
--- NOTE | 2019-03-24 14:37 | P.PN ---
Progress Note - Text Progress Note Date: 03/24/19 Interval History: Patient was seen this morning and was laying in bed in darkroom with sap security architect outside. Patient was agreeable to speak to creative writer briefly and patient appeared to be somewhat less irritable this morning. Patient continues to be preoccupied with discharge and asked several times when he may like all. Patient claims that he is refusing medications and states that he does not need them. Continues to have poor insight and judgment. He states that he is sleeping throughout the night and during the day. He states that his mood is "fine" however appears to be incongruent and irritable. Patient got frustrated correction through the interview and turned away from creative writer. At this time patient denies any suicidal or homical ideations, intent or plan. Patient denies any auditory, visual hallucinations and denies any paranoia. Mental Status Exam: General Appearance: Patient appears to be stated age is frail, unkempt and is agitated at times. Less irritable today. Behavior: Irritable at times however was directable. Speech: Patient's speech is loud at times. Mood/Affect: Patient reports their mood is "pissed", affect is congruent and labile. Suicidality/Homicidality: No active homicidal or suicidal ideations or threats. Perceptions: Patient denies any auditory or visual hallucinations. Though content/process: Preoccupied with discharge, illogical at times. Memory and concentration: grossly intact for the purposes of this session Judgment and insight: Poor/impulsive Assessment Delirium likely secondary to polysubstance withdrawal, toxic metabolic and possible anesthesia medications. Mood disorder unspecified. Polysubstance abuse, possible withdrawal at this time? PLAN: -Delirium precautions recommended with patient including - avoiding use of narcotics and [employer] sedatives, limit anticholinergic medications when possible, frequent re-orientation, minimize use of restraints, open window shades during the day and close them at night -Would recommend the following medication changes/additions: Continue with Seroquel 50 mg twice a day for agitation/aggression. Haldol plus Ativan IM every 6 hours for agitation. -Continue 1:1 sitter for safety -Will continue to follow along and patient will be evaluated for disposition.
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
[2019-03-24] MEDS: MELATONIN 3 MG TABLET PO SCH (20:55)
[2019-03-24] MEDS: HYDROcodone/APAP 7.5-325MG 1 EACH TAB PO PRN (22:23)
[2019-03-25] MEDS: IPRATROPIUM-ALBUTEROL 3 ML NEB INHALATION SCH ×3 (07:23→16:02)
[2019-03-25] MEDS: PANTOPRAZOLE 40 MG TABLET PO SCH (07:41)
[2019-03-25] MEDS: DEXAMETHASONE 4 MG TAB PO SCH (07:41)
[2019-03-25] MEDS: guaiFENesin 600 MG TABLET.ER PO SCH ×2 (07:42→07:50)
[2019-03-25] MEDS: ENOXAPARIN 60 MG/0.6 ML SYRINGE SQ SCH (07:42)
[2019-03-25] MEDS: QUEtiapine 50 MG TAB PO SCH (07:44)
[2019-03-25] MEDS: FOLIC ACID 1 MG TAB PO SCH (07:49)
[2019-03-25] MEDS: MULTIVITAMINS, THERA 1 EACH TAB PO SCH (07:49)
[2019-03-25] MEDS: THIAMINE 100 MG TAB PO SCH (07:49)
[2019-03-25] MEDS: HYDROcodone/APAP 7.5-325MG 1 EACH TAB PO PRN ×2 (07:49→12:50)
[2019-03-25] MEDS: NICOTINE 21MG/24HR PATCH TRANSDERM SCH (07:50)
[2019-03-25 11:33] VITALS: BP 91/60; PULSE 80; RESP 17; TEMP 97.8
--- NOTE | 2019-03-25 14:03 | P.PN ---
Subjective Progress Note Date: 03/25/19 Principal diagnosis: Large mediastinal mass with MEDICAL ACCOUNTS RECEIVABLE SPECIALIST metastasis. The patient is seen today 03/21/2019 in follow-up on the regular medical floor. He is currently awake and alert in no acute distress. Resting comfortably in bed. Maintaining O2 saturations in the 90s on room air. He's afebrile. Hemodynamically stable. White count 6.4. Hemoglobin 10.7. He remains on a heparin drip. Bronchodilators. NicoDerm patch in place. Fine-needle aspirate of the mediastinal mass revealed necrotic pulmonary nodule consistent with necrotic neoplasm, insufficient for further definitive characterization. On 03/22/2019 patient seen in follow-up on medical surgical floor. His been nothing by mouth since midnight for bronchoscopy with fine-needle biopsy of the mediastinal mass, patient's fine-needle aspirate biopsy that was done transthoracically by the device the radiology was nondiagnostic feeling necrotic pulmonary nodule consistent with necrotic neoplasm and this was insufficient for further definitive characterization. Overnight patient has been stable, other than not being able to get much sleep, patient was woken up early by the maintenance workers drilling something across the wall, otherwise vitals are stable, room air pulse ox is 99%, no fever no chills, respirations are nonlabored, no complaints of chest pain, no hemoptysis, his labs have been reviewed, and BMP was unremarkable, no CBC was done. he received a dose of Ativan as he was becoming quite agitated and verbally aggressive with the staff in regards to being kept nothing by mouth and being woken up several early. His heparin will be put on hold 2 hours prior to the procedure. Patient was reevaluated today on 03/25/2019, he has less questions about his tissue diagnosis, patient was made aware that it is pending. Patient denies any shortness of breath no cough no wheezing. And he is being followed by many consultants mostly psychiatry, and oncology as well as radiation oncology. Path ology report from his last biopsy is pending. Lactulose are normal renal profile is normal CBC is normal. Psychiatry is evaluating the patient on a regular basis for his behavior Objective - Vital Signs Vital signs: Vital Signs Temp 97.8 F 03/25/19 11:33 Pulse 80 03/25/19 11:33 Resp 17 03/25/19 11:33 BP 91/60 03/25/19 11:33 Pulse Ox 100 03/25/19 11:33 Intake & Output 03/24/19 03/25/19 03/25/19 18:59 06:59 18:59 Intake Total 1600 1150 Balance 1600 1150 Intake: Oral 1600 1150 Other: Voiding Method Toilet Toilet # Voids 2 2 - Exam Physical Exam: Revealed 58-year-old white male in no distress. Head: Atraumatic, normocephalic. HEENT:[Neck is supple.] [No neck masses.] [No thyromegaly.] [No JVD.] Chest: [Clear throughout, no crackles, no rhonchi, no wheezes.] Cardiac Exam: [Normal S1 and S2, no S3 gallop, no murmur.] Abdomen: [Soft, nontender, no megaly, no rebound, no guarding, normal bowel sounds.] Extremities: [No clubbing, no edema, no cyanosis.] Neurological Exam: [No focal neurologic deficit.] - Labs CBC & Chem 7: 03/23/19 07:07 03/23/19 07:07 Assessment and Plan Assessment: Impression: 1 large mediastinal mass extending to the left apex and invasion of mediastinum, great vessels, highly suspicious for bronchogenic carcinoma and possible [employer]ICAL ACCOUNTS RECEIVABLE SPECIALIST metastasis. 2 new onset hoarseness secondary to mediastinal mass and most likely involving the left recurrent laryngeal nerve 3 extensive deep vein thromboses involving left axillary subclavian cephalic and basilic veins in the left upper extremity. Remains on heparin. 4 History of alcoholism 5 Tobacco dependence syndrome. Recommendation: Continue present supportive care measures. Awaiting pathology report from his recent bronchoscopy. Needle aspiration of mediastinal mass, and multiple bronchial biopsies and bronchoalveolar lavage cytology. We'll continue to follow and update oncology and radiation oncology on the pathology report once it is available. Time with Patient: Less than 30
[2019-03-25] MEDS ORDERED: SERTRALINE 50 MG TAB PO SCH (14:15)
--- NOTE | 2019-03-25 14:37 | P.PN ---
Progress Note - Text Progress Note Date: 03/25/19 Interval History: Patient was seen this continue and was laying in bed with data security administrator stewart hernandez. Patient was agreeable to speak to specifications writer and appeared to be more cooperative this morning. Patient was apologetic about his behavior earlier and claimed that he is feeling very frustrated sitting in the hospital and is able to verbalize why he wanted to leave. He states that he misses home and misses his family and spoke about his dogs. He claims multiple times he does not know how long or how severe his cancer is in claims that he liked to spend more time with his loved ones. Patient states that he feels hopeful about the future in claims that she would like more answers but his prognosis. When asked about his medications patient claimed that he started taking some medications this morning however was skeptical about Seroquel as he stated that someone he knew who his psychotic was on Seroquel and he believed that Seroquel might make him psychotic. Student Life Vice President discussed the medications and how they would be there to help him and patient was more agreeable to medications. Patient claims that before coming to the hospital she was "happy all the time" and claimed that he had supportive hoahaoism that he went to. At this time he admitted to having mild depression mainly related to having thoughts of his cancer and end-of-life. He denies any anxiety at this time and denies any problems throughout the night sleeping. He claims his energy and appetite are fair. Patient appeared to have improved insight and judgment with improved frustration tolerance. At this time patient denies any suicidal or homical ideations, intent or plan. Patient denies any auditory, visual hallucinations and denies any paranoia. As per nurse taking care of the patient, states that patient is a lot more cooperative this morning with treatment and more coherent and logical. Mental Status Exam: General Appearance: Patient appears to be stated age is frail, unkempt and is cooperative and directable this morning. Behavior: Cooperative and directable. Somewhat tearful at times when discussing end-of-life issues. Speech: Normal rate and rhythm, normal tone. Mood/Affect: Patient reports their mood is "ok", affect is congruent Suicidality/Homicidality: No active homicidal or suicidal ideations or threats. Perceptions: Patient denies any auditory or visual hallucinations. Though content/process: Patient is goal oriented and logical in thought process and content. Memory and concentration: AO3 grossly intact for the purposes of this session, fair attention span. Judgment and insight: Fair, improved Assessment Delirium likely secondary to polysubstance withdrawal, toxic metabolic and possible anesthesia medications, resolved. Depressive disorder unspecified. PLAN: -At this time patient appears to have decision-making capacity and can verbally describe the consequences, risks and benefits to treatment. -Would recommend the following medication changes/additions: We'll discontinue Seroquel at this time as patient is less irritable/agitated. Patient is agreeable to commence antidepressant Zoloft 50 mg daily for mood. -At this time can discontinue one-to-one as patient is more cooperative and not having behavioral problems. -Student Life Vice President spoke with daughter Alina at [phone] who states that she believes that patient had a "bad reaction" to the anesthesia medications and claims that her father was more aggressive afterwards and was not at his baseline. She states that she hopes that her father is able to still engage in treatment when he comes home and is discharged from the hospital with regards to his cancer and is agreeable to have him discharged to stay with her or another family member and has no other concerns. -At this time psychiatry will sign off and patient may be discharged home with family when medically appropriate/cleared.
--- NOTE | 2019-03-25 18:39 | P.DS ---
Providers Date of admission: 03/19/19 14:55 Expected date of discharge: 03/25/19 Attending physician: George Ortiz MD Consults: 03/18/19 22:40 Consult Physician Routine Consulting Provider: Js Ulloa Consult Reason/Comments: mass encasing trachea, necrotic tumor Do you want consulting provider notified?: Yes, Notify in am Consult Physician Routine Consulting Provider: Edgar Chauhan Consult Reason/Comments: lung cancer Do you want consulting provider notified?: Yes, Notify in am 03/20/19 10:34 Consult Physician Routine Consulting Provider: Matthew Heard Consult Reason/Comments: brain metastasis Do you want consulting provider notified?: Yes 03/22/19 15:31 Consult Physician Routine Consulting Provider: Robson Nguyen Consult Reason/Comments: depression,sucidial and homocidial thoughts Do you want consulting provider notified?: Already Contacted Primary care physician: Physician Nonstaff Hospital Course: Discharge Diagnosis: 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 Repeat biopsy pending, initial biopsy showed necrotic tumor. Left upper extremity DVT, provoked by malignancy Anemia, undetermined etiology Hoarseness Cachexia with mild protein calorie malnutrition Tobacco abuse Alcohol abuse Acute delirium, resolved likely due to toxic metabolic encephalopathy and possible anesthesia medications Hospital Course: Patient is a 58-year-old male with a past medical history of lung and throat cancer, tobacco abuse, and chronic vocal cord impairment who initially presented with dyspnea. Found to have significant pulmonary mass. Initial CTA in the ER demonstrated large mediastinal mass encasing the great vessels and trachea along with main artery disease with a subtotal occlusion of the left pulmonary artery due to tumor invasion. He does have a cavitating mass in the left upper lobe consistent with necrotic tumor. CT abdomen and pelvis demonstrated a low density lesion in the tail of the pancreas, small cyst in the pancreatic head, and left inguinal inflammatory changes of uncertain si gnificance along with an enlarged left inguinal lymph node. Lower extremity venous Dopplers demonstrated no DVT but a cystic fluid collection in the left groin. He was admitted for dyspnea, secondary to underlying lung cancer with possible acute exacerbation of COPD due to chronic and ongoing tobacco abuse. H He was evaluated by oncology and pulmonary. Initially he underwent a CT-guided lung biopsy with interventional radiology that ultimately resulted as necrotic pulmonary nodule consistent with necrotic neoplasm. Due to arm pain and swelling he underwent a left upper extremity ultrasound which demonstrated extensive DVT including the left internal jugular vein, subclavian vein, axillary vein, cephalic vein, and basilic veins. He was started initially on a heparin gtt and was ultimately transitioned to Lovenox. For further staging of his cancer he underwent an MRI of the brain which demonstrated a 1.9 cm left parietal 6 rim-enhancing mass with surrounding vasogenic edema favoring metastatic focus. He was seen by radiation oncology who is awaiting path before determining focal versus whole brain radiation. They did state benefits greater than risks of using anticoagulation for DVT. Due to his initial biopsy being nondiagnostic he was taken down for bronchoscopy with biopsy on 03/22. He became acutely agitated on the evening of 03/22. Apparently he made threats of killing people to his sister and slso threatened hospital staff. Seen by psychiatry who felt he likely had a medication induced delirium due to sedation for bronch was not competent in making medical decisions for himself. His sensorium began clearing on 03/23 and 03/24. By 03/25 he was again aware of his cancer and current conditions. Need to take medications and need for further treatment. Niranjan castellanos was requesting to be discharged if he wanted to go back to his family. Psych reevaluated him and felt that he was now competent to make decisions for himself. He was medically stable. He did not want to take Lovenox due to not wanting to self inject. This was discussed with oncology who is in agreement that his DVT be adequately treated with Eliquis at this point in time. His Marion 7.5 was not adequate quickly controlling his arm pain. He was transitioned to Marion 10/325. His pathology results are not yet back at time of discharge. He was determined stable for discharge home. He was counseled on the importance of following up with both medical and radiation oncology for final biopsy results, possible need for chemotherapy and radiation. He was counseled on the importance of taking his steroid and his blood thinner. He will follow-up with Dr. Chauhan, Dr. Heard, and and initiate Dr. Dubose as his PCP. Patient seen and examined at bedside. Still having some pain in his left upper extremity. No unusual shortness of breath, still with a cough. No nausea or vomiting. Vital signs reviewed and stable. General: non toxic, no distress, appears at stated age Derm: warm, dry Head: atraumatic, normocephalic, symmetric Eyes: EOMI, no lid lag, anicteric sclera Mouth: no lip lesion, mucus membranes moist Cardiovascular: S1S2 reg, no murmur, positive posterior tibial pulse bilateral, Lungs: CTA bilateral, no rhonchi, no rales , no accessory muscle use Ext: no gross muscle atrophy, no edema, no contractures Neuro: CN II-XI grossly intact, no focal neuro deficits Psych: Alert, oriented, appropriate affect A total of 35 minutes of time were spent preparing this complex discharge summary . Patient Condition at Discharge: Stable Plan - Discharge Summary Discharge Rx Participant: Yes New Discharge Prescriptions: New Apixaban [Eliquis Starter Pack (for VTE)] 0 mg PO DIRECTED 30 Days #1 pack Dexamethasone 4 mg PO BID #28 tablet Nicotine 21Mg/24Hr Patch [Habitrol] 1 patch TRANSDERM DAILY #14 patch guaiFENesin [Mucinex] 1,200 mg PO Q12HR #30 tablet.er HYDROcodone/APAP 10-325MG [Marion 10-325] 1 tab PO Q4HR PRN 7 Days #42 tab PRN Reason: Pain Pantoprazole [Protonix] 40 mg PO AC-BRKFST #30 tablet. Continue Albuterol Inhaler [Ventolin Hfa Inhaler] 1 - 2 puff INHALATION RT-Q6H PRN PRN Reason: Shortness Of Breath Discontinued oxyCODONE HCL [oxyCODONE HCL (IR)] 15 mg PO TID Discharge Medication List Albuterol Inhaler [Ventolin Hfa Inhaler] 1 - 2 puff INHALATION RT-Q6H PRN 03/18/19 [History] Apixaban [Eliquis Starter Pack (for VTE)] 0 mg PO DIRECTED 30 Days #1 pack 03/19/19 [Rx] Dexamethasone 4 mg PO BID #28 tablet 03/21/19 [Rx] HYDROcodone/APAP 10-325MG [Marion 10-325] 1 tab PO Q4HR PRN 7 Days #42 tab 03/25/19 [Rx] Nicotine 21Mg/24Hr Patch [Habitrol] 1 patch TRANSDERM DAILY #14 patch 03/25/19 [Rx] Pantoprazole [Protonix] 40 mg PO AC-BRKFST #30 tablet. 03/25/19 [Rx] guaiFENesin [Mucinex] 1,200 mg PO Q12HR #30 tablet.er 03/25/19 [Rx] Follow up Appointment(s)/Referral(s): Edgar Chauhan MD [STAFF PHYSICIAN] - 10 Days Matthew Heard MD [STAFF PHYSICIAN] - 03/27/19 12:30 pm Tuan Elise [STAFF PHYSICIAN] - 1 Week (Patient to call and schedule follow up appointment. The office has questions for the patient. ) Patient Instructions/Handouts: Hydrocodone/Acetaminophen (By mouth), Guaifenesin (By mouth), Nicotine (Absorbed through the skin), Dexamethasone (By mouth), Pantoprazole (By mouth), Apixaban (By mouth), Lung Cancer (DC), Deep Vein Thrombosis (DC) Activity/Diet/Wound Care/Special Instructions: Dr. Chauhan's office will contact pt with date and time for PET scan. Follow up appt with will be given at that time Discharge Disposition: HOME SELF-CARE
--- NOTE | 2019-03-25 20:14 | P.PN ---
Subjective Progress Note Date: 03/25/19 Principal diagnosis: Metastatic Cancer awaiting pathology Patient has been aggressive and delirious, followed by psychiatry. Apparently refusing medications. It is unknown if this has to do with prolonged hospital stay and/or metastatic brain lesion which was identifying positive vasogeneic edema, although refusing dexamethasone to decrease swelling. Initial Biopsy of mediastinal mass was inconclusive, repeat biopsy completed via bronchoscopy. Objective - Vital Signs Vital signs: Vital Signs Temp 97.9 F 03/25/19 05:17 Pulse 70 03/25/19 05:17 Resp 16 03/25/19 05:17 BP 94/60 03/25/19 05:17 Pulse Ox 95 03/25/19 05:17 Intake & Output 03/24/19 03/25/19 03/25/19 18:59 06:59 18:59 Intake Total 1600 1150 Balance 1600 1150 Intake: Oral 1600 1150 Other: Voiding Method Toilet Toilet # Voids 2 2 - Exam General: Agitated Head: Normocytic, Atraumatic Neck: Supple Eyes: Non-sclerot Heart: Regular Rate, Regular Rhythm Lungs:No increased effort noted Extremities: unable to assess Neurological: unable to assess Psych: Delirious - Labs CBC & Chem 7: 03/23/19 07:07 03/23/19 07:07 Assessment and Plan (1) Mass of left lung Status: Acute Code(s): R91.8 - OTHER NONSPECIFIC ABNORMAL FINDING OF LUNG FIELD SNOMED Code(s): 436564155 (2) Brain metastasis Status: Acute Code(s): C79.31 - SECONDARY MALIGNANT NEOPLASM OF BRAIN SNOMED Code(s): 81279862 (3) Confusion Status: Acute Code(s): R41.0 - DISORIENTATION, UNSPECIFIED SNOMED Code(s): 497468884 (4) DVT (deep venous thrombosis) Status: Acute Priority: High Code(s): I82.409 - ACUTE EMBOLISM AND THOMBOS UNSP DEEP VN UNSP LOWER EXTREMITY SNOMED Code(s): 533148811 Plan: - Awaiting repeat Tissue biopsy by broncoscopy - Awaiting gaurdianship and plan as patient not competent to make decision, psych following. - Patient will be discharged to psych in interim, although unable to receive Lovenox while on this unit, will change to eliquis for treatment of acute DVT - Discussed with primary team
[2019-03-25] MEDS ORDERED: APIXABAN 5 MG TAB PO SCH (21:00)
--- NOTE | 2019-03-29 09:33 | CDI ---
Documentation Clarification Form Date: 03/29/19 From: Arlene Hurtado Phone: If you have a question about this query, please contact Jayashree Saucedo, Planner Scheduler at [phone] between 8am and 5pm. Admit Date: 03/19/19 Discharge Date: 03/25/19 Patient Name: Kannan Patel Visit Number: [id number] ATTENTION: The Clinical Documentation Specialists (CDI) and [facility] Coding Staff appreciate your assistance in clarifying documentation. Please respond to the clarification below the line at the bottom and electronically sign. The CDI & [facility] Coding staff will review the response and follow-up if needed. Please note: Queries are made part of the Legal Health Record. If you have any questions, please contact the author of this message via ITS. 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 Op note documentation states: Large mediastinal mass in addition to significant endobronchial narrowing of the distal left mainstem bronchus with tumor invading the secondary ginette the to the left upper lob and left lower lobe causing significant extrinsic compression and endobronchial irregularities. Patient history/risk factors: DVT of left upper extremity, COPD, smoker, drug and alcohol abuse Clinical Indicators: SOB, abnormal weight loss of 110 lbs Treatment: Binh Ortiz In your professional opinion, do you agree with the pathology report specifying pulmonary carcinoma? Yes No Other (please specify) Unable to determine Yes, however discharge summary not updated as this information was not available at time of discharge. MTDD
== END 2019-03-25 16:30 | disposition home health service (06) | DRG 180 ==
LOC: EC 16:36 → 3NMEDONC 19:13 → OBSVTOIN 03-19 14:55
PROVIDERS: ADMIT Internal Medicine; ATTEND Internal Medicine
PROC: 0WBC3ZX Excision of Mediastinum, Percutaneous Approach, Diagnostic (ICD-10-PCS; 2019-03-19)
PROC: 07D78ZX Extraction of Thorax Lymphatic, Via Natural or Artificial Opening Endoscopic, Diagnostic (ICD-10-PCS; principal; 2019-03-23)
PROC: 0BD28ZX Extraction of Carina, Via Natural or Artificial Opening Endoscopic, Diagnostic (ICD-10-PCS; 2019-03-23)
PROC: 0B9J8ZX Drainage of Left Lower Lung Lobe, Via Natural or Artificial Opening Endoscopic, Diagnostic (ICD-10-PCS; 2019-03-23)
DX: C34.12 Malignant neoplasm of upper lobe, left bronchus or lung (principal); G93.6 Cerebral edema; G92 Toxic encephalopathy; I82.B12 Acute embolism and thrombosis of left subclavian vein; K86.2 Cyst of pancreas; I82.622 Acute embolism and thrombosis of deep veins of left upper extremity; R64 Cachexia; C79.31 Secondary malignant neoplasm of brain; C78.1 Secondary malignant neoplasm of mediastinum; E44.1 Mild protein-calorie malnutrition; I82.A12 Acute embolism and thrombosis of left axillary vein; I82.612 Acute embolism and thrombosis of superficial veins of left upper extremity; F19.231 Other psychoactive substance dependence with withdrawal delirium; I82.C12 Acute embolism and thrombosis of left internal jugular vein; J38.01 Paralysis of vocal cords and larynx, unilateral; J44.9 Chronic obstructive pulmonary disease, unspecified; F32.9 Major depressive disorder, single episode, unspecified; T41.1X5A Adverse effect of intravenous anesthetics, initial encounter; I77.1 Stricture of artery; D64.9 Anemia, unspecified; G89.29 Other chronic pain; Q05.9 Spina bifida, unspecified; R49.0 Dysphonia; F10.10 Alcohol abuse, uncomplicated; F41.9 Anxiety disorder, unspecified; K40.90 Unilateral inguinal hernia, without obstruction or gangrene, not specified as recurrent; R59.0 Localized enlarged lymph nodes; Z68.20 Body mass index [BMI] 20.0-20.9, adult; F17.210 Nicotine dependence, cigarettes, uncomplicated; Z71.6 Tobacco abuse counseling; Z79.891 Long term (current) use of opiate analgesic; Z79.899 Other long term (current) drug therapy; Z78.1 Physical restraint status; Z87.01 Personal history of pneumonia (recurrent); Z90.49 Acquired absence of other specified parts of digestive tract; Z98.890 Other specified postprocedural states; Z88.8 Allergy status to other drugs, medicaments and biological substances; Z80.8 Family history of malignant neoplasm of other organs or systems; Y84.8 Other medical procedures as the cause of abnormal reaction of the patient, or of later complication, without mention of misadventure at the time of the procedure; Y92.230 Patient room in hospital as the place of occurrence of the external cause
CPT/HCPCS: 31625; 31629; 36415; 70553; 71045; 71275; 74177; 77012; 80053; 82550; 82728; 83540; 83550; 83605; 83690; 83735; 84100; 84484; 85025; 85379; 85610; 85730; 88108; 88173; 88305; 88341; 88342; 93005; 94640; 94760; 96361; 96374; 99285

== ENCOUNTER → 2019-03-30 | Outpatient (CLI) | payer MEDICARE, BC ==
--- NOTE | 2019-04-01 07:19 | PE ---
EXAMINATION TYPE: PET CT fusion skull to thigh DATE OF EXAM: 03/30/2019 COMPARISON: CT abdomen pelvis 03/18/2019, 03/18/2019 CTA Prior PET/CT: None HISTORY: Lung mass TECHNIQUE: Following the intravenous administration of 12.85 mCi of F-18 FDG, whole body images are performed from the skull base to the midthigh. Images are reviewed on the computer in the coronal, a xial, and sagittal planes. Reconstructed rotating images are created on independent workstation and reviewed on the computer. A localization and attenuation correction CT is performed in conjunction with the PET scan. DLP: 451.90 mGycm SCAN: Initial Blood glucose: 126 mg/dL Average Mediastinum SUV: 1.5 to Average Liver SUV: 1.81 FINDINGS: NECK: No suspicious uptake. There is some intense uptake in the right vocal cord which is asymmetric . Consider direct visualization. THORAX: There is intense uptake within the mediastinum centered at the left hilum. Image 99, SUV valu e of 3.53. Right mediastinal uptake is also present, image 96 with an SUV value of 5.63. ABDOMEN: No suspicious uptake PELVIS: There is an area of intense uptake within the left inguinal region with an SUV value of 5.36. Image 242. There is uptake within the left inguinal region extending into the pelvis. OSSEOUS STRUCTURES: No abnormal uptake LOCALIZATION CT: Large mass extends mediastinal adjacent to the aortic arch through the liver there a ppears to be encasement of the lingula and left lower lobe bronchi. Coronary artery calcifications pr esent. There is elevation left diaphragm. Left inguinal soft tissue density is present. COMPARISON: No significant change from recent CTs IMPRESSION: 1. Abnormal uptake mediastinal mass. Correlate for lung cancer. 2. Additional uptake noted in the right hilar region and at the left inguinal region suspicious for m etastatic disease.
== END | disposition home or self-care (01) ==
LOC: RADPETMAIN 08:12
PROVIDERS: ATTEND Internal Medicine Hematology & Oncology
DX: R91.8 Other nonspecific abnormal finding of lung field (principal); R93.5 Abnormal findings on diagnostic imaging of other abdominal regions, including retroperitoneum
CPT/HCPCS: 78815; A9552

== ENCOUNTER 2019-05-08 09:08 | Inpatient (IN) | payer MEDICARE, BC ==
[2019-05-08] MEDS ORDERED: MORPHINE SULFATE 4 MG/ML SYRINGE IV STA (09:26)
[2019-05-08] MEDS ORDERED: ALBUTEROL NEBULIZED 2.5 MG/3 ML INHALATION STA (09:27)
[2019-05-08] MEDS ORDERED: DEXAMETHASONE SOD PHOSPHATE 10 MG/ML 1 ML VIAL IV STA (09:29)
[2019-05-08] MEDS ORDERED: IPRATROPIUM 0.5 MG/2.5 ML NEBU INHALATION STA (09:29)
[2019-05-08] MEDS ORDERED: SODIUM CHLORIDE 0.9% 1,000 ML IV ONE (09:33)
--- NOTE | 2019-05-08 09:39 | ED ---
General Adult HPI - General Chief complaint: Chest Pain Stated complaint: CHEST PAIN, MILLICENT Time Seen by Provider: 05/08/19 09:15 Source: patient, RN notes reviewed, old records reviewed Mode of arrival: ambulatory Limitations: no limitations - History of Present Illness Initial comments: 58-year-old male presents for evaluation of dyspnea, cough, and sharp left-sided chest pain. Patient has been having increased left-sided chest pain over the past one week. Patient does report cough as well as fever. He's been having fevers every evening for the past several days. Patient reports the pain as sharp in nature, nonradiating. Worse with cough and inspiration. He also has a history of COPD. He is not currently on home oxygen. Denies central chest pain. Denies known CAD or any heart issues. He does have stage IV lung cancer and has had radiation treatment. He has not had any chemotherapy, currently awaiting reevaluation by oncology. - Related Data Home Medications Medication Instructions Recorded Confirmed Albuterol Inhaler [Ventolin Hfa 1 - 2 puff INHALATION RT-Q6H PRN 03/18/19 03/18/19 Inhaler] Previous Rx's Medication Instructions Recorded Apixaban [Eliquis Starter Pack 0 mg PO DIRECTED 30 Days #1 pack 03/19/19 (for VTE)] Dexamethasone 4 mg PO BID #28 tablet 03/21/19 HYDROcodone/APAP 10-325MG [Homer 1 tab PO Q4HR PRN 7 Days #42 tab 03/25/19 10-325] Nicotine 21Mg/24Hr Patch [Habitrol] 1 patch TRANSDERM DAILY #14 patch 03/25/19 Pantoprazole [Protonix] 40 mg PO AC-BRKFST #30 tablet. 03/25/19 Sertraline [Zoloft] 50 mg PO DAILY #30 tab 03/25/19 guaiFENesin [Mucinex] 1,200 mg PO Q12HR #30 tablet.er 03/25/19 Allergies Allergy/AdvReac Type Severity Reaction Status Date / Time metronidazole [From Flagyl] Allergy Swelling Verified 03/18/19 21:28 Review of Systems ROS Statement: Those systems with pertinent positive or pertinent negative responses have been documented in the HPI. ROS Other: All systems not noted in ROS Statement are negative. Past Medical History Past Medical History: Cancer, Pneumonia Additional Past Medical History / Comment(s): lung mass, COPD, smoker, history of alcoholism History of Any Multi-Drug Resistant Organisms: None Reported Past Surgical History: Appendectomy Past Anesthesia/Blood Transfusion Reactions: No Reported Reaction Past Psychological History: No Psychological Hx Reported Smoking Status: Current every day smoker Past Alcohol Use History: Occasional Past Drug Use History: None Reported - Past Family History Mother Family Medical History: Cancer Additional Family Medical History / Comment(s): possible brain cancer General Exam Limitations: no limitations General appearance: alert, in distress Head exam: Present: atraumatic, normocephalic Eye exam: Present: normal appearance, PERRL ENT exam: Present: normal exam Neck exam: Present: normal inspection. Absent: tenderness, meningismus Respiratory exam: Present: respiratory distress, wheezes, rhonchi, decreased breath sounds Cardiovascular Exam: Present: regular rate, normal rhythm GI/Abdominal exam: Present: soft, other (Left inguinal mass minimal tenderness no erythema). Absent: distended, tenderness, guarding, rebound Extremities exam: Present: normal inspection, normal capillary refill. Absent: pedal edema, calf tenderness Neurological exam: Present: alert, oriented X3 Psychiatric exam: Present: normal affect, normal mood Skin exam: Present: warm, dry, intact. Absent: cyanosis, diaphoretic Course Vital Signs 05/08/19 05/08/19 05/08/19 09:12 09:15 10:02 Temperature 98.0 F Pulse Rate 73 66 Respiratory 19 24 Rate Blood Pressure 124/71 O2 Sat by Pulse 95 Oximetry 05/08/19 10:20 Temperature Pulse Rate 67 Respiratory Rate Blood Pressure O2 Sat by Pulse Oximetry EKG Findings - EKG Comments: EKG Findings:: EKG: Normal sinus rhythm, rate 73, NV interval 140, QRS duration 78, QTC [address] segment elevation Medical Decision Making - Medical Decision Making 58-year-old male presenting with left-sided chest pain, cough, subjective fever which is nightly. X-rays obtained, there is concern for right lower lobe hilar pneumonia. Has persistent left sided mass. CT is performed. Negative for pulmonary embolism, does show persistent metastatic invasive carcinoma. Patient has normal CBC, normal CMP. Given albuterol, Atrovent, steroids and antibiotics emergency department. He is reassessed. He has persistent dyspnea at rest he has rhonchi and wheezing bilaterally. He will be admitted for treatment of COPD exacerbation with pneumonia. Case discussed with Dr. Grove, she will admit. - Lab Data Result diagrams: 05/08/19 09:35 05/08/19 09:35 Lab Results 05/08/19 05/08/19 05/08/19 Range/Units 09:35 09:35 09:35 WBC 6.6 (3.8-10.6) k/uL RBC 4.19 L (4.30-5.90) m/uL Hgb 12.8 L (13.0-17.5) gm/dL Hct 38.2 L (39.0-53.0) % MCV 91.1 (80.0-100.0) fL MCH 30.7 (25.0-35.0) pg MCHC 33.6 (31.0-37.0) g/dL RDW 14.6 (11.5-15.5) % Plt Count 288 (150-450) k/uL Neutrophils % 76 % Lymphocytes % 15 % Monocytes % 7 % Eosinophils % 1 % Basophils % 0 % Neutrophils # 5.0 (1.3-7.7) k/uL Lymphocytes # 1.0 (1.0-4.8) k/uL Monocytes # 0.5 (0-1.0) k/uL Eosinophils # 0.0 (0-0.7) k/uL Basophils # 0.0 (0-0.2) k/uL PT 10.6 (9.0-12.0) sec INR 1.0 (<1.2) APTT 25.7 (22.0-30.0) sec Sodium 140 (137-145) mmol/L Potassium 3.6 (3.5-5.1) mmol/L Chloride 108 H (98-107) mmol/L Carbon Dioxide 27 (22-30) mmol/L Anion Gap 5 mmol/L BUN 11 (9-20) mg/dL Creatinine 0.61 L (0.66-1.25) mg/dL Est GFR (CKD-EPI)AfAm >90 (>60 ml/min/1.73 sqM) Est GFR (CKD-EPI)NonAf >90 (>60 ml/min/1.73 sqM) Glucose 105 H (74-99) mg/dL Plasma Lactic Acid Kennedy (0.7-2.0) mmol/L Calcium 9.1 (8.4-10.2) mg/dL Magnesium 1.9 (1.6-2.3) mg/dL Total Bilirubin 0.8 (0.2-1.3) mg/dL AST 16 L (17-59) U/L ALT 27 (21-72) U/L Alkaline Phosphatase 102 (38-126) U/L Troponin I (0.000-0.034) ng/mL Total Protein 6.3 (6.3-8.2) g/dL Albumin 3.7 (3.5-5.0) g/dL 05/08/19 05/08/19 Range/Units 09:35 09:35 WBC (3.8-10.6) k/uL RBC (4.30-5.90) m/uL Hgb (13.0-17.5) gm/dL Hct (39.0-53.0) % MCV (80.0-100.0) fL MCH (25.0-35.0) pg MCHC (31.0-37.0) g/dL RDW (11.5-15.5) % Plt Count (150-450) k/uL Neutrophils % % Lymphocytes % % Monocytes % % Eosinophils % % Basophils % % Neutrophils # (1.3-7.7) k/uL Lymphocytes # (1.0-4.8) k/uL Monocytes # (0-1.0) k/uL Eosinophils # (0-0.7) k/uL Basophils # (0-0.2) k/uL PT (9.0-12.0) sec INR (<1.2) APTT (22.0-30.0) sec Sodium (137-145) mmol/L Potassium (3.5-5.1) mmol/L Chloride (98-107) mmol/L Carbon Dioxide (22-30) mmol/L Anion Gap mmol/L BUN (9-20) mg/dL Creatinine (0.66-1.25) mg/dL Est GFR (CKD-EPI)AfAm (>60 ml/min/1.73 sqM) Est GFR (CKD-EPI)NonAf (>60 ml/min/1.73 sqM) Glucose (74-99) mg/dL Plasma Lactic Acid Kennedy 0.8 (0.7-2.0) mmol/L Calcium (8.4-10.2) mg/dL Magnesium (1.6-2.3) mg/dL Total Bilirubin (0.2-1.3) mg/dL AST (17-59) U/L ALT (21-72) U/L Alkaline Phosphatase (38-126) U/L Troponin I <0.012 (0.000-0.034) ng/mL Total Protein (6.3-8.2) g/dL Albumin (3.5-5.0) g/dL Disposition Clinical Impression: Lung cancer, Mass of left lung, COPD (chronic obstructive pulmonary disease) Disposition: ADMITTED IP TO THIS [facility] Condition: Stable Is patient prescribed a controlled substance at d/c from ED?: No Referrals: Tuan Elise [Primary Care Provider] - 1-2 days Decision to Admit Reason: Admit from EC Decision Date: 05/08/19 Decision Time: 11:01
--- NOTE | 2019-05-08 09:59 | XR ---
EXAMINATION TYPE: XR chest 1V portable DATE OF EXAM: 05/08/2019 COMPARISON: 03/19/2019 HISTORY: Left-sided chest pain, history of COPD and stage IV lung cancer TECHNIQUE: Single frontal view of the chest is obtained. FINDINGS: Left hemithorax volume loss is seen with cavitary mass in the left upper lobe and fullness of the hilum representing this patient's underlying known lung cancer. Old healed right rib fracture s are seen. New right basilar airspace disease is patchy. No acute osseous pathology. No sizable pneu mothorax. Cardiomediastinal silhouette is stable. IMPRESSION: 1. New right basilar opacity that may represent atelectasis or pneumonia. 2. Left hemithorax volume loss, left upper lobe mass and left hilar fullness representing the patient 's known metastatic pulmonary neoplasm.
[2019-05-08 10:10] LABS: Basophils % (A) 0 %; Eosinophils % (A) 1 %; HCT 38.2 % (39.0-53.0); HGB 12.8 gm/dL (13.0-17.5); Lymphocytes % (A) 15 %; MCH 30.7 pg (25.0-35.0); MCHC 33.6 g/dL (31.0-37.0); MCV 91.1 fL (80.0-100.0); Mean Platelet Volume 5.4; Monocytes # (A) 0.5 k/uL (0-1.0); Monocytes % (A) 7 %; Neutrophils % (A) 76 %; Platelet Count 288 k/uL (150-450); RBC 4.19 m/uL (4.30-5.90); RDW 14.6 % (11.5-15.5); WBC 6.6 k/uL (3.8-10.6)
--- NOTE | 2019-05-08 10:17 | CT ---
EXAMINATION TYPE: CT angio chest DATE OF EXAM: 05/08/2019 COMPARISON: 03/18/2019 HISTORY: Lt sided chest pain, SOB, known lung CA CT DLP: 342.4 mGycm CONTRAST: CT chest with contrast and 3D reconstruction with MIP imaging is performed with IV Contrast, patient injected with 100 mL of Isovue 300. Contrast-enhanced CT of the chest was performed through the course of the pulmonary arteries with tristen g and mediastinal window settings submitted. 3D reconstruction with MIP imaging was also performed. PULMONARY ARTERIES: The left main pulmonary artery is encased by mediastinal mass with subtotal occlu lalo noted. The patent lumen measures approximately 2 mm versus 3.5 mm previously. I do not see defin ite evidence for pulmonary embolism at this time although there is less than ideal perfusion of the l eft sided pulmonary arterial branches. No evidence for right-sided pulmonary embolism. LUNGS: Left upper lobe mass is redemonstrated with associated volume loss. Measurement is difficult t o elucidate however is estimated at 7.1 x 5.9 cm. Additional left upper lobe cavitary mass measuring 3.3 cm. The right lung is free of additional lung nodule or mass. Loculated collection of air is see n medially in right upper lobe which may reflect a blunted. MEDIASTINUM: Large mediastinal mass is redemonstrated encasing the left main pulmonary artery and le ft mainstem bronchus. There is subtotal occlusion of the left main pulmonary artery as noted above. M ediastinal mass is estimated at approximately 7.3 x 7.1 cm. There is paratracheal adenopathy noted on the right and the left measuring 3.6 x 2.5 cm on the right and approximately 4.6 x 2.2 cm on the lef t. Conglomerate subcarinal adenopathy noted as well measuring 2.5 cm. As ago esophageal adenopathy me asuring 2.9 cm. There is a small pericardial effusion noted. Thoracic aorta is of normal caliber,arvizu nae, evaluation is limited given timing of the contrast bolus. If there is concern for thoracic aort ic pathology consider EVELIO. Correlate clinically . The heart is not enlarged. No evidence for medias tinal mass. No mediastinal lymph nodes greater than 1cm. HILAR STRUCTURES: No evidence for mass. No hilar lymph nodes greater than 1 cm. UPPER ABDOMEN: No significant abnormality is seen. IMPRESSION: 1. No convincing evidence for pulmonary embolism however there is a encasing mass of the left main p ulmonary artery with the subtotal occlusion and decreased perfusion to the pulmonary tree on the left limiting evaluation. As noted the patent lumen is estimated at 2 mm. 2. Large mediastinal mass with left upper lobe mass with cavitation and associated volume loss. Encas ement of the left mainstem bronchus.
[2019-05-08 10:24] LABS: ALT 27 U/L (21-72); AST 16 U/L (17-59); African American GFR (CKD) >90 (>60 ml/min/1.73 sqM); Albumin 3.7 g/dL (3.5-5.0); Alkaline Phosphatase 102 U/L (38-126); Anion Gap 5 mmol/L; Blood Urea Nitrogen 11 mg/dL (9-20); Calcium 9.1 mg/dL (8.4-10.2); Carbon Dioxide 27 mmol/L (22-30); Chloride 108 mmol/L (98-107); Glucose 105 mg/dL (74-99); Magnesium 1.9 mg/dL (1.6-2.3); Non-African American GFR(CKD) >90 (>60 ml/min/1.73 sqM); Potassium 3.6 mmol/L (3.5-5.1); Sodium 140 mmol/L (137-145); Total Bilirubin 0.8 mg/dL (0.2-1.3); Total Protein 6.3 g/dL (6.3-8.2)
[2019-05-08 10:32] LABS: Partial Thromboplastin Time 25.7 sec (22.0-30.0); Prothrombin Time 10.6 sec (9.0-12.0)
[2019-05-08] MEDS ORDERED: AZITHROMYCIN 500 MG in SODIUM CHLORIDE 0.9% 250 ML IVPB STA (10:46)
[2019-05-08] MEDS ORDERED: cefTRIAXone IN SWFI 1,000 MG/10 ML SYRINGE IVP STA (10:46)
[2019-05-08] MEDS ORDERED: methylPREDNISolone SOD SUCCI 125 MG/2 ML VIAL IV STA (10:58)
[2019-05-08] MEDS ORDERED: IPRATROPIUM-ALBUTEROL 3 ML NEB INHALATION PRN (10:58)
[2019-05-08 13:50] VITALS: BMI 25.1
[2019-05-08] MEDS ORDERED: HYDROcodone/APAP 5-325MG 1 EACH TAB PO PRN (13:54)
[2019-05-08] MEDS ORDERED: NALOXONE 0.4 MG/ML 1 ML VIAL IV PRN (13:54)
[2019-05-08] MEDS ORDERED: BISACODYL 5 MG TABLET.DR PO PRN (13:54)
[2019-05-08] MEDS ORDERED: ACETAMINOPHEN TAB 325 MG TAB PO PRN (13:54)
[2019-05-08] MEDS ORDERED: ONDANSETRON 4 MG/2 ML VIAL IVP PRN (13:54)
[2019-05-08] MEDS ORDERED: HYDROmorphone 0.5 MG/0.5 ML SYRINGE IVP PRN (13:59)
[2019-05-08] MEDS ORDERED: ALBUTEROL NEBULIZED 2.5 MG/3 ML INHALATION PRN (14:14)
[2019-05-08] MEDS: SODIUM CHLORIDE 0.45% 1,000 ML IV SCH (14:22)
[2019-05-08] MEDS: NICOTINE 21MG/24HR PATCH TRANSDERM SCH (14:22)
--- NOTE | 2019-05-08 14:45 | P.HPIM ---
History of Present Illness H&P Date: 05/08/19 Chief Complaint: shortness of breath Patient is a 58-year-old male past medical history of 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 Of note patient was hospitalized here in March 2019. At that point in time he was found to have a mediastinal mass with poorly differentiated non-small cell lung cancer. He was discharged home with pain medications and follow up with oncology. Patient reports that he received radiation to the brain with Dr. Heard but has yet to receive any chemotherapy or radiation chest. He states Dr. Heard has been talking to him about radiation of the chest to slow the growth of his tumor. He presented to the emergency department today secondary to increasing shortness of breath for the last 5 days. In the ER he underwent an extensive evaluation. On arrival his vital signs within normal limits. Laboratory a nalysis showed a hemoglobin of 12.8, glucose of 105, influenza was negative. He underwent a CTA of the chest which showed an encasing mass in the left main pulmonary artery with subtotal occlusion and decreased perfusion of the pulmonary tree on the left as well as large mediastinal mass with left upper lobe mass with cavitation and associated volume. He was given bronchodilators, Rocephin, Zithromax, and Decadron in the emergency department. He is also given a dose of Solu-Medrol and morphine. He is admitted for further monitoring and treatment of possible acute exacerbation of COPD. Patient seen and examined at bedside and initially is very upset and agitated. He thinks his shortness of breath is due to the need for oxygen and feels been on his addressed in the outpatient setting. He then reports that he has had increasing shortness of breath for the last 5 days. It is worse with exertion and better with rest. It is associated with a dry cough. He denies any overt wheezing. He states he has been smoking up to 5 days ago and has not had a cigarette since then. It is associated with chest discomfort that is left sided and changes in intensity from mild to sharp and stabbing. This is the same pain he has been dealing with for months secondary to his known malignancy. He does report that recently he has been unable to sleep at night and has not slept in 4 days. He states that at night she wakes up gasping for air with left-sided chest pain and it takes several minutes to recover. He also notes that he has had increasing size of his left groin lesion. He reports that he has had multiple episodes of syncope over the last several weeks. Lasting 2 days ago. He states he will be up and walking and then just fall to the floor and collapse. He also reports that he has been seeing shadows on the left side of his vision peripherally but when he looks very there is nothing there. This has been going on since he completed radiation to his brain mass. He states that he has. Follow-up appointment with Dr. Heard today. He also noticed that 2 days ago he was having persistent vomiting and diarrhea associated with some blood but that is since resolved. He does report chronic intermittent nausea. He reports some dark urine. He states he has not eaten 5 days. Review of Systems Pertinent positives and negatives as discussed in HPI, a complete review of systems was performed and all other systems are negative. 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 History of Any Multi-Drug Resistant Organisms: None Reported Past Surgical History: Appendectomy, Orthopedic Surgery Additional Past Surgical History / Comment(s): L lung biosy/bronchoscopy with bx, L index/thumb tendon repair, R middle finger tendon repair. Past Anesthesia/Blood Transfusion Reactions: No Reported Reaction Past Psychological History: Depression Additional Psychological History / Comment(s): Pt currently resides with his father in a trailer. He moved here from [place] in March,. He is using a cane to ambulate. He does not drive, his family takes him to [facility]. Pt is hoping to qualify for home oxygen and is interested in home care. Smoking Status: Current every day smoker Past Alcohol Use History: Occasional Additional Past Alcohol Use History / Comment(s): Pt started smoking in 1971 and states he has been cutting down, one cigarette in 4 days. Pt states he used to drink a 30 pack of beer a day but now one beer every 4 days. Additional Drug Use History / Comment(s): Pt states he used street drugs in the past but none for a long time. - Past Family History Mother Family Medical History: Cancer Additional Family Medical History / Comment(s): Cervical cancer Father Family Medical History: COPD Medications and Allergies Home Medications Medication Instructions Recorded Confirmed Type Albuterol Inhaler [Ventolin Hfa 2 puff INHALATION RT-Q6H PRN 03/18/19 05/08/19 History Inhaler] Pantoprazole [Protonix] 40 mg PO AC-BRKFST #30 tablet.dr 03/25/19 05/08/19 Rx Sertraline [Zoloft] 50 mg PO DAILY #30 tab 03/25/19 05/08/19 Rx Fluticasone/Vilanterol [Breo 1 puff INHALATION RT-BID 05/08/19 05/08/19 History Ellipta 100-25 Mcg Inhaler] Folic Acid 1 mg PO DAILY 05/08/19 05/08/19 History Nicotine 21Mg/24Hr Patch [Habitrol] 1 patch TRANSDERM DAILY 05/08/19 05/08/19 History oxyCODONE HCL [oxyCODONE HCL (IR)] 15 mg PO Q6H PRN 05/08/19 05/08/19 History Allergies Allergy/AdvReac Type Severity Reaction Status Date / Time metronidazole [From Flagyl] Allergy Swelling Verified 05/08/19 11:10 morphine AdvReac CASTANEDA Verified 05/08/19 11:14 Physical Exam Osteopathic Statement: *. No significant issues noted on an osteopathic struct ural exam other than those noted in the History and Physical/Consult. Vitals: Vital Signs Temp Pulse Resp BP Pulse Ox 05/08/19 12:23 97.3 F L 89 19 129/73 97 05/08/19 11:20 73 18 118/67 98 05/08/19 10:20 67 05/08/19 10:02 66 05/08/19 09:15 24 05/08/19 09:12 98.0 F 73 19 124/71 95 Intake and Output 05/07/19 05/08/19 05/08/19 22:59 06:59 14:59 Other: Weight 77.111 kg General: non toxic, mild distress distress, appears at stated age, normal weight, disheveled Derm: no unusual rashes/lesions no unusual ecchymoses, warm, dry Head: atraumatic, normocephalic, symmetric Eyes: EOMI, no lid lag, anicteric sclera, pupils equal round reactive to light ENT: Nose and ears atraumatic, no thrush, no pharyngeal erythema Neck: No thyromegaly, no cervical lymphadenopathy, trachea midline, supple Mouth: no lip lesion, mucus membranes dry Cardiovascular: S1S2 reg, no murmur, positive posterior tibial pulse bilateral, no edema, capillary refill less than 2 seconds Lungs: absent BS left base, decreased bs throughout, no rhonchi, no rales , no accessory muscle use Abdominal: soft, nontender to palpation, no guarding, no appreciable organomegaly, normal bowel sounds Ext: + lump left groin, not flucunant, not warm, no erythema, does not appear reducible, no gross muscle atrophy, muscle strength 5 out of 5 in all 4 extremities grossly, no contractures, Neuro: CN II-XI grossly intact, light touch intact all 4 extremities, finger to nose within normal limits, Psych: Alert, oriented, appropriate affect Results CBC & Chem 7: 05/08/19 09:35 05/08/19 09:35 Labs: Abnormal Lab Results - Last 24 Hours (Table) 05/08/19 05/08/19 Range/Units 09:35 09:35 RBC 4.19 L (4.30-5.90) m/uL Hgb 12.8 L (13.0-17.5) gm/dL Hct 38.2 L (39.0-53.0) % Chloride 108 H (98-107) mmol/L Creatinine 0.61 L (0.66-1.25) mg/dL Glucose 105 H (74-99) mg/dL AST 16 L (17-59) U/L Chest x-ray: report reviewed CT scan - chest: report reviewed, image reviewed Thrombosis Risk Factor Assmnt - DVT/VTE Prophylaxis DVT/VTE Prophylaxis: Pharmacologic Prophylaxis ordered - Choose All That Apply Any of the Below Risk Factors Present?: Yes Each Factor Represents 1 point: Abnormal pulmonary function (COPD), Age 41-60 years Other Risk Factors: Yes Each Risk Factor Represents 2 Points: Malignancy Each Risk Factor Represents 3 Points: History of DVT/PE Other congenital or acquired thrombophilia - If yes, enter type in comment: No Thrombosis Risk Factor Assessment Total Risk Factor Score: 7 Thrombosis Risk Factor Assessment Level: High Risk Assessment and Plan Assessment: acute exacerbation of COPD - steroids, zithromax, bronchodilators - cough suppressant - mucinex Poorly differentiated non small cell lung/mediastinal ca with mets to brain and likely groin - CT with possible vascular flow compromise - Consult med onc and Radiation onc (Left message for Dr. Heard) Acute on chronic chest pain, related to malignancy - Resume oxy, prn dilaudid for break through - clearly not consistent with cardiac disease Syncope X 3 - tele - echo - suspect might be related to hypoxia - KWESI brain after discussion with Rad Onc - Ortho - fall precautions Tobacco abuse - cessation - nicotine replacement GERD - PPI The patient is admitted with an anticipated greater than 2 midnight stay for evaluation of AE COPD. Surrogate decision-maker: mother or sister Radha CODE STATUS:Full, going to be speaking about this with his mother and sister DVT prophylaxis: Lovenox Discussed with: patient, nursing, ed physician Anticipated discharge date: 1-[address]: home A total of 65 minutes was spent on the care of this complex patient more than 50% of the time was spent in counseling and care coordination.
[2019-05-08] MEDS: IPRATROPIUM-ALBUTEROL 3 ML NEB INHALATION SCH ×3 (15:55→21:05)
[2019-05-08] MEDS: BENZONATATE 100 MG CAP PO SCH (17:47)
[2019-05-08] MEDS: methylPREDNISolone SOD SUCCI 125 MG/2 ML VIAL IV SCH (17:47)
[2019-05-08] MEDS: SYMBICORT 80-4.5 MCG INHALER INHALATION SCH (21:10)
[2019-05-08] MEDS: guaiFENesin 600 MG TABLET.ER PO SCH (21:36)
[2019-05-09] MEDS: methylPREDNISolone SOD SUCCI 125 MG/2 ML VIAL IV SCH ×2 (00:43→06:12)
[2019-05-09] MEDS: ALPRAZolam 0.25 MG TAB PO PRN ×3 (00:44→19:05)
[2019-05-09] MEDS: BENZONATATE 100 MG CAP PO SCH ×4 (00:48→22:03)
[2019-05-09] MEDS: SODIUM CHLORIDE 0.45% 1,000 ML IV SCH ×2 (05:19→21:07)
[2019-05-09] MEDS: NICOTINE 21MG/24HR PATCH TRANSDERM SCH (07:33)
[2019-05-09] MEDS: AZITHROMYCIN 500 MG TAB PO SCH (07:33)
[2019-05-09] MEDS: guaiFENesin 600 MG TABLET.ER PO SCH ×2 (07:34→19:04)
[2019-05-09] MEDS: PANTOPRAZOLE 40 MG TABLET PO SCH (07:34)
[2019-05-09] MEDS: SERTRALINE 50 MG TAB PO SCH (07:34)
[2019-05-09] MEDS: ENOXAPARIN 40 MG/0.4 ML SYRINGE SQ SCH (07:37)
[2019-05-09] MEDS: SYMBICORT 80-4.5 MCG INHALER INHALATION SCH ×2 (07:42→20:35)
[2019-05-09] MEDS: IPRATROPIUM-ALBUTEROL 3 ML NEB INHALATION SCH ×4 (07:42→20:35)
--- NOTE | 2019-05-09 07:46 | P.CONS ---
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 He presented with a single brain metastasis in the left parietal lobe as well as likely disease involving the left inguinal region. He underwent radiosurgery to the brain metastases finishing on 04/08/19. He was due to start systemic therapy, but due to worsening symptoms he presented to the hospital. Since his diagnosis, the patient has complained of increased dyspnea on exertion and mild left-sided chest discomfort. Over the past week, he feels these symptoms have become magnified. He now reports dyspnea both at rest and with mild exertion. He reports that when lying flat at night, he occasionally sits up gasping for air. He reports some mild cough which is nonproductive. He de nies fevers or chills. He reports that his left-sided chest discomfort that was previously present is now significantly worse, 7-8 out of 10, constantly. He also reports seeing some shadows in his left-sided peripheral vision. He reports he has had a couple episodes of nausea and vomiting as well. He also feels that his urine has been tea colored, but denies taking any blood thinners. He also complains that the swelling in his left inguinal region has become more pronounced. This is not causing him pain however. Upon admission on May 08 a CTA of the chest was performed. There was no DVT appreciated, but there was encasement of the left pulmonary artery with narrowing of the lumen to approximately 2 mm. This was worse than his previous scan, and felt to represent decreased perfusion the left lung; the patient did have persistent large left upper lung/mediastinal mass. Review of Systems Constitutional: Denies chills, Denies fever Eyes: left blurred vision (see HPI) Ears: deny: decreased hearing Ears, nose, mouth and throat: Denies epistaxis, Denies headache Cardiovascular: Reports chest pain, Reports decreased exercise tolerance, Re ports dyspnea on exertion, Reports orthopnea Respiratory: Reports cough, Reports dyspnea, Denies hemoptysis, Denies home oxygen Gastrointestinal: Denies abdominal pain Integumentary: Reports dryness Neurological: Denies ataxia, Denies confusion, Denies headaches, Denies numbness, Denies paralysis Psychiatric: Reports depression Past Medical History Past Medical History: Cancer, COPD, Pneumonia Additional Past Medical History / Comment(s): Pt states he was 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 History of Any Multi-Drug Resistant Organisms: None Reported Past Surgical History: Appendectomy, Orthopedic Surgery Additional Past Surgical History / Comment(s): L lung biosy/bronchoscopy with bx, L index/thumb tendon repair, R middle finger tendon repair. Past Anesthesia/Blood Transfusion Reactions: No Reported Reaction Past Psychological History: Depression Additional Psychological History / Comment(s): Pt currently resides with his father in a trailer. He moved here from [place] in March,. He is using a cane to ambulate. He does not drive, his family takes him to [employer]. Pt is hoping to qualify for home oxygen and is interested in home care. Smoking Status: Current every day smoker Past Alcohol Use History: Occasional Additional Past Alcohol Use History / Comment(s): Pt started smoking in 1971 and states he has been cutting down, one cigarette in 4 days. Pt states he used to drink a 30 pack of beer a day but now one beer every 4 days. Additional Drug Use History / Comment(s): Pt states he used street drugs in the past but none for a long time. - Past Family History Mother Family Medical History: Cancer Additional Family Medical History / Comment(s): Cervical cancer Father Family Medical History: COPD Medications and Allergies Home Medications Medication Instructions Recorded Confirmed Type Albuterol Inhaler [Ventolin Hfa 2 puff INHALATION RT-Q6H PRN 03/18/19 05/08/19 History Inhaler] Pantoprazole [Protonix] 40 mg PO AC-BRKFST #30 tablet. 03/25/19 05/08/19 Rx Sertraline [Zoloft] 50 mg PO DAILY #30 tab 03/25/19 05/08/19 Rx Fluticasone/Vilanterol [Breo 1 puff INHALATION RT-BID 05/08/19 05/08/19 History Ellipta 100-25 Mcg Inhaler] Folic Acid 1 mg PO DAILY 05/08/19 05/08/19 History Nicotine 21Mg/24Hr Patch [Habitrol] 1 patch TRANSDERM DAILY 05/08/19 05/08/19 History oxyCODONE HCL [oxyCODONE HCL (IR)] 15 mg PO Q6H PRN 05/08/19 05/08/19 History Allergies Allergy/AdvReac Type Severity Reaction Status Date / Time metronidazole [From Flagyl] Allergy Swelling Verified 05/08/19 11:10 morphine AdvReac CASTANEDA Verified 05/08/19 11:14 Physical Exam Vitals: Vital Signs Temp Pulse Pulse Pulse Pulse Resp BP 05/09/19 06:05 97.7 F 78 18 05/09/19 00:00 76 20 05/08/19 22:28 97.6 F 83 18 05/08/19 21:16 90 05/08/19 21:06 88 05/08/19 16:59 76 05/08/19 16:47 80 05/08/19 16:45 97.4 F L 78 78 78 18 05/08/19 12:23 97.3 F L 89 19 129/73 05/08/19 11:20 73 18 118/67 05/08/19 10:20 67 05/08/19 10:02 66 05/08/19 09:15 24 05/08/19 09:12 98.0 F 73 19 124/71 BP BP BP Pulse Ox 05/09/19 06:05 144/78 100 05/09/19 00:00 05/08/19 22:28 120/79 97 05/08/19 21:16 05/08/19 21:06 05/08/19 16:59 05/08/19 16:47 05/08/19 16:45 119/67 127/60 107/65 05/08/19 12:23 97 05/08/19 11:20 98 05/08/19 10:20 05/08/19 10:02 05/08/19 09:15 05/08/19 09:12 95 Intake and Output 05/08/19 05/09/19 05/09/19 22:59 06:59 14:59 Intake Total 780 Balance 780 Intake: Intake, IV Titration 300 Amount Sodium Chloride 0.45% 1, 300 000 ml @ 75 mls/hr IV . [id number] RIGOBERTO Rx#:[id number] Oral 480 Other: Voiding Method Toilet # Voids 2 1 - Constitutional General appearance: mild distress - EENT Eyes: EOMI, PERRLA ENT: hearing grossly normal - Neck Neck: no lymphadenopathy - Respiratory Respiratory: right: CTA, left: diminished, wheezing - Cardiovascular Rhythm: regular - Gastrointestinal General gastrointestinal: no distended, no tenderness - Genitourinary Male genitourinary: left inguinal lymphadenopathy - Integumentary Integumentary: no cellulitis, no cyanotic - Neurologic Neurologic: CNII-XII intact - Musculoskeletal Musculoskeletal: strength equal bilaterally - Psychiatric Psychiatric: A&O x's 3, appropriate affect Results CBC & Chem 7: 05/08/19 09:35 05/08/19 09:35 Labs: Abnormal Lab Results - Last 24 Hours (Table) 05/08/19 05/08/19 Range/Units 09:35 09:35 RBC 4.19 L (4.30-5.90) m/uL Hgb 12.8 L (13.0-17.5) gm/dL Hct 38.2 L (39.0-53.0) % Chloride 108 H (98-107) mmol/L Creatinine 0.61 L (0.66-1.25) mg/dL Glucose 105 H (74-99) mg/dL AST 16 L (17-59) U/L CT scan - chest: report reviewed, image reviewed Assessment and Plan Plan: The patient is a 58-year-old male with a history of recently diagnosed stage IVB (cT4, 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 He presented with a single brain metastasis in the left parietal lobe as well as likely disease involving the left inguinal region. He underwent radiosurgery to the brain metastases finishing on 04/08/19. He was due to start systemic therapy, but due to worsening symptoms he presented to the hospital. 1. Progressive dyspnea: No Evidence of PE or pneumonia. There has been some mild size progression of the patient's mass, resulting in on narrowing of the pulmonary artery. This is likely responsible for the patient's symptoms. I have recommended the patient undergo palliative radiotherapy, which we will intend to start today, to this left upper lung mass. I explained to the patient that he would first undergo CT simulation for treatment planning. Treatment would be delivered Monday through Monday, 5 days a week for approximately 2 weeks. I discussed typical side effects of this treatment which include, but are not limited to; fatigue, skin irritation, cough, dysphagia and odynophagia. The patient will also hopefully soon be able to be discharged initiate outpatient chemotherapy, which will also help with reducing the size of the mass. 2. NSCLC - history of brain metastases: as detailed in history of present illn ess, the patient was reporting some symptoms of changes in his left-sided peripheral vision, and has even had some episodes of nausea and vomiting over the past week. The patient underwent radiosurgery to a single brain metastasis 1 week ago. I would recommend at this time that the patient undergo repeat MRI imaging of the brain. Time with Patient: Greater than 30
--- NOTE | 2019-05-09 09:39 | P.CONS ---
History of Present Illness - Reason for Consult Consult date: 05/09/19 NSCLC Requesting physician: Tawana Grove - Chief Complaint MILLICENT - History of Present Illness Pt admitted for COPD exacerbation/MILLICENT. He is not wearing O2 when we come in, his breathing is mildly labored but he does not complain. States progressive SOB, x 5 days, worse with exertion, relieves with rest, dry cough. Left chest and upper arm pain, not new but progressive. Orthopnea, lack of sleep and feeling frustrated. Poor appetite. feeling alittle better since admit and beginning treatments and fluids. Malignancy history: Pt seen initially in Mar 2019, brought to hospital by his sister for concerns regarding his progressive health decline. Last year ago he was told he had a mass in his lung, most likely lung cancer. Patient opted to not follow-up on this. He lost about 110 pounds, voice hoarse. On Monday though, his left upper extremity started swelling, there was venous congestion visual in the chest and the patient had found a "lump" in his left groin. CTA of the chest revealed a 4.5 cm left upper lobe cavitating mass, and a mediastinal mass encasing the great vessels in the trachea. Doppler of the left lower extremity showed no DVT but there was a hypoechoic mass measuring 3.2 x 4.2 x 1.3 cm in lt groin. Doppler of the left upper extremity showed DVT in the left IJ, subclavian, axillary, cephalic and basilic veins. CT AP showed a small density in the tail of the pancreas, the left groin lymph node was also seen, no other concerning areas discussed. 03/19 MRI brain showed 1.9cm lt parietal lesion with vasogenic edema. 03/22 transbronchial biopsy path poorly differentiated NSCLC, NGS KRAS mutation, no other mutations, not enough specimen for PD-L1 testing. He completed radiation to brain lesion last week. 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 History of Any Multi-Drug Resistant Organisms: None Reported Past Surgical History: Appendectomy, Orthopedic Surgery Additional Past Surgical History / Comment(s): L lung biosy/bronchoscopy with bx, L index/thumb tendon repair, R middle finger tendon repair. Past Anesthesia/Blood Transfusion Reactions: No Reported Reaction Past Psychological History: Depression Additional Psychological History / Comment(s): Pt currently resides with his father in a trailer. He moved here from [place] in March,. He is using a cane to ambulate. He does not drive, his family takes him to [facility]. Pt is hoping to qualify for home oxygen and is interested in home care. Smoking Status: Current every day smoker Past Alcohol Use History: Occasional Additional Past Alcohol Use History / Comment(s): Pt started smoking in 1971 and states he has been cutting down, one cigarette in 4 days. Pt states he used to drink a 30 pack of beer a day but now one beer every 4 days. Past Drug Use History: Unable to Obtain Additional Drug Use History / Comment(s): Pt states he used street drugs in the past but none for a long time. - Past Family History Mother Family Medical History: Cancer Additional Family Medical History / Comment(s): Cervical cancer Father Family Medical History: COPD Medications and Allergies Home Medications Medication Instructions Recorded Confirmed Type Albuterol Inhaler [Ventolin Hfa 2 puff INHALATION RT-Q6H PRN 03/18/19 05/08/19 History Inhaler] Pantoprazole [Protonix] 40 mg PO AC-BRKFST #30 tablet.dr 03/25/19 05/08/19 Rx Sertraline [Zoloft] 50 mg PO DAILY #30 tab 03/25/19 05/08/19 Rx Fluticasone/Vilanterol [Breo 1 puff INHALATION RT-BID 05/08/19 05/08/19 History Ellipta 100-25 Mcg Inhaler] Folic Acid 1 mg PO DAILY 05/08/19 05/08/19 History Nicotine 21Mg/24Hr Patch [Habitrol] 1 patch TRANSDERM DAILY 05/08/19 05/08/19 History oxyCODONE HCL [oxyCODONE HCL (IR)] 15 mg PO Q6H PRN 05/08/19 05/08/19 History Allergies Allergy/AdvReac Type Severity Reaction Status Date / Time metronidazole [From Flagyl] Allergy Swelling Verified 05/08/19 11:10 morphine AdvReac CASTANEDA Verified 05/08/19 11:14 Physical Exam Vitals: Vital Signs Temp Pulse Pulse Pulse Pulse Resp BP 05/09/19 07:57 80 05/09/19 07:43 80 05/09/19 06:05 97.7 F 78 18 05/09/19 00:00 76 20 05/08/19 22:28 97.6 F 83 18 05/08/19 21:16 90 05/08/19 21:06 88 05/08/19 16:59 76 05/08/19 16:47 80 05/08/19 16:45 97.4 F L 78 78 78 18 05/08/19 12:23 97.3 F L 89 19 129/73 05/08/19 11:20 73 18 118/67 05/08/19 10:20 67 05/08/19 10:02 66 BP BP BP Pulse Ox 05/09/19 07:57 05/09/19 07:43 05/09/19 06:05 144/78 100 05/09/19 00:00 05/08/19 22:28 120/79 97 05/08/19 21:16 05/08/19 21:06 05/08/19 16:59 05/08/19 16:47 05/08/19 16:45 119/67 127/60 107/65 05/08/19 12:23 97 05/08/19 11:20 98 05/08/19 10:20 05/08/19 10:02 Intake and Output 05/08/19 05/09/19 05/09/19 22:59 06:59 14:59 Intake Total 780 Balance 780 Intake: Intake, IV Titration 300 Amount Sodium Chloride 0.45% 1, 300 000 ml @ 75 mls/hr IV . [id number] RIGOBERTO Rx#:[id number] Oral 480 Other: Voiding Method Toilet Toilet # Voids 2 1 - Constitutional General appearance: average body habitus, cooperative, no acute distress - EENT Eyes: anicteric sclerae, EOMI ENT: hearing grossly normal - Neck Neck: lymphadenopathy - Respiratory Respiratory: bilateral: rhonchi - Cardiovascular Heart sounds: normal: S1, S2 foot Peripheral Edema: bilateral: 1+ - Gastrointestinal General gastrointestinal: normal bowel sounds, soft - Integumentary Integumentary: normal - Neurologic Neurologic: CNII-XII intact - Musculoskeletal Musculoskeletal: strength equal bilaterally - Psychiatric Psychiatric: A&O x's 3, appropriate affect, intact judgment & insight Results CBC & Chem 7: 05/09/19 08:57 05/08/19 09:35 Labs: Abnormal Lab Results - Last 24 Hours (Table) 05/08/19 05/08/19 Range/Units 09:35 09:35 RBC 4.19 L (4.30-5.90) m/uL Hgb 12.8 L (13.0-17.5) gm/dL Hct 38.2 L (39.0-53.0) % Chloride 108 H (98-107) mmol/L Creatinine 0.61 L (0.66-1.25) mg/dL Glucose 105 H (74-99) mg/dL AST 16 L (17-59) U/L Chest x-ray: report reviewed CT scan - chest: report reviewed Assessment and Plan (1) NSCLC metastatic to brain Narrative/Plan: Aslo mets to lt inguinal area. Pt has completed XRT to the brain. Going to have palliative XRT to symptomatic disease in the chest. Chemo is already planned and ready to begin once pt completes XRT. B12 and folic acid for treatment with alimta Current Visit: Yes Status: Acute Priority: High Code(s): C34.90 - MALIGNANT NEOPLASM OF UNSP PART OF UNSP BRONCHUS OR LUNG; C79.31 - SECONDARY MALIGNANT NEOPLASM OF BRAIN SNOMED Code(s): 212823062 (2) COPD exacerbation Narrative/Plan: In part due to tumor. XRT planned. Treatments ordered by Attending. Current Visit: Yes Status: Acute Priority: High Code(s): J44.1 - CHRONIC OBSTRUCTIVE PULMONARY DISEASE W (ACUTE) EXACERBATION SNOMED Code(s): 291903965 Plan: attests: I have seen and examined patient, developed impression and plan of care, discussed with dictator, agree with note, documented as a scribe.
[2019-05-09 09:42] LABS: HCT 35.2 % (39.0-53.0); HGB 11.5 gm/dL (13.0-17.5); Hypochromasia Slight; MCH 30.8 pg (25.0-35.0); MCHC 32.6 g/dL (31.0-37.0); MCV 94.6 fL (80.0-100.0); Platelet Count 289 k/uL (150-450); RBC 3.72 m/uL (4.30-5.90); RDW 14.5 % (11.5-15.5); WBC 8.5 k/uL (3.8-10.6)
[2019-05-09] MEDS ORDERED: CYANOCOBALAMIN 1,000 MCG/ML 1 ML VIAL IM ONE (10:00)
[2019-05-09 10:04] LABS: ALT 22 U/L (21-72); AST 13 U/L (17-59); African American GFR (CKD) >90 (>60 ml/min/1.73 sqM); Albumin 3.7 g/dL (3.5-5.0); Alkaline Phosphatase 100 U/L (38-126); Anion Gap 12 mmol/L; Blood Urea Nitrogen 11 mg/dL (9-20); Carbon Dioxide 22 mmol/L (22-30); Chloride 105 mmol/L (98-107); Glucose 313 mg/dL (74-99); Magnesium 1.9 mg/dL (1.6-2.3); Non-African American GFR(CKD) >90 (>60 ml/min/1.73 sqM); Potassium 4.3 mmol/L (3.5-5.1); Sodium 139 mmol/L (137-145); Total Bilirubin 0.5 mg/dL (0.2-1.3); Total Protein 6.3 g/dL (6.3-8.2)
[2019-05-09] MEDS: FOLIC ACID 1 MG TAB PO SCH (10:25)
--- NOTE | 2019-05-09 10:55 | ECHOF ---
Referral Reason:syncope MEASUREMENTS -------- HEIGHT: 175.3 cm WEIGHT: 77.1 kg BP: 120/49 IVSd: 1.2 cm (0.6 - 1.1) LVIDd: 4.0 cm (3.9 - 5.3) LVPWd: 1.5 cm (0.6 - 1.1) IVSs: 1.5 cm LVIDs: 2.3 cm LVPWs: 1.7 cm Ao Diam: 4.0 cm (2.0 - 3.7) MV EXCURSION: 20.130 mm (> 18.000) MV EF SLOPE: 90 mm/s (70 - 150) EPSS: 0.4 cm MV E Burt: 0.84 m/s MV DecT: 145 ms MV A Burt: 0.77 m/s MV E/A Ratio: 1.08 FINDINGS -------- Sinus rhythm. This was a technically adequate study. The left ventricular size is normal. There is mild concentric left ventricular hypertrophy. Overa ll left ventricular systolic function is low-normal with, an EF between 50 - 55 %. The right ventricle is normal in size. The left atrial size is normal. The right atrial size is normal. There is mild aortic valve sclerosis. There is no evidence of aortic regurgitation. Mild mitral annular calcification present. Mild mitral regurgitation is present. Mild tricuspid regurgitation present. Right ventricular systolic pressure is normal at < 35 mmHg. There is no evidence of pulmonary hypertension. Severe Pulmonic Stenosis Gradient of 78 mmHg. The aortic root size is normal. Echo free space indicative of a pericardial fat pad. Small Pleural Effusion. CONCLUSIONS -------- 1. Sinus rhythm. 2. This was a technically adequate study. 3. The left ventricular size is normal. 4. There is mild concentric left ventricular hypertrophy. 5. Overall left ventricular systolic function is low-normal with, an EF between 50 - 55 %. 6. The right ventricle is normal in size. 7. The left atrial size is normal. 8. The right atrial size is normal. 9. There is mild aortic valve sclerosis. 10. Mild mitral annular calcification present. 11. Mild mitral regurgitation is present. 12. Mild tricuspid regurgitation present. 13. Right ventricular systolic pressure is normal at < 35 mmHg. 14. There is no evidence of pulmonary hypertension. 15. Severe Pulmonic Stenosis Gradient of 78 mmHg. 16. The aortic root size is normal. 17. Echo free space indicative of a pericardial fat pad. 18. Small Pleural Effusion. CHIROPRACTIC DOCTOR: Ariadne Husain RDCS
--- NOTE | 2019-05-09 10:56 | P.PN ---
Subjective Progress Note Date: 05/09/19 Principal diagnosis: shortness of breath Patient is a 58-year-old male past medical history of 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 Of note patient was hospitalized here in March 2019. At that point in time he was found to have a mediastinal mass with poorly differentiated non-small cell lung cancer. He was discharged home with pain medications and follow up with oncology. Patient reports that he received radiation to the brain with Dr. Heard but has yet to receive any chemotherapy or radiation chest. He states Dr. Heard has been talking to him about radiation of the chest to slow the growth of his tumor. He presented to the emergency department today secondary to increasing shortness of breath for the last 5 days. In the ER he underwent an extensive evaluation. On arrival his vital signs within normal limits. Laboratory a nalysis showed a hemoglobin of 12.8, glucose of 105, influenza was negative. He underwent a CTA of the chest which showed an encasing mass in the left main pulmonary artery with subtotal occlusion and decreased perfusion of the pulmonary tree on the left as well as large mediastinal mass with left upper lobe mass with cavitation and associated volume. He was given bronchodilators, Rocephin, Zithromax, and Decadron in the emergency department. He is also given a dose of Solu-Medrol and morphine. He is admitted for further monitoring and treatment of possible acute exacerbation of COPD. Case was discussed with radiation oncology. He was continued on steroids, bronchodilators, and antibiot ics. Plan is for repeat MRI 05/09 and initiation of radiation to the chest mass. Suspect that syncope is related to decreased pulmonary perfusion and hypoxemia. Seen and examined at bedside. He continues to have some shortness of breath, no nausea or vomiting, pain is currently controlled. Feeling anxious today. Objective - Vital Signs Vital signs: Vital Signs Temp 97.7 F 05/09/19 06:05 Pulse 80 05/09/19 07:57 Resp 18 05/09/19 06:05 BP 144/78 05/09/19 06:05 Pulse Ox 100 05/09/19 06:05 Intake & Output 05/08/19 05/09/19 05/09/19 18:59 06:59 18:59 Intake Total 780 Balance 780 Weight 77.111 kg Intake: Intake, IV Titration 300 Amount Sodium Chloride 0.45% 1, 300 000 ml @ 75 mls/hr IV . [id number] RIGOBERTO Rx#:[id number] Oral 480 Other: Voiding Method Toilet Toilet # Voids 1 - Exam General: ill appearing, no distress, appears at stated age, disheveled Derm: warm, dry Head: atraumatic, normocephalic, symmetric Eyes: EOMI, no lid lag, anicteric sclera] Mouth: no lip lesion, mucus membranes moist Cardiovascular: S1S2 reg, no murmur, positive posterior tibial pulse bilateral, Lungs: Course bs bilateral, decreased bs on left , no accessory muscle use Abdominal: soft, nontender to palpation, no guarding, no appreciable organomegaly Ext: no gross muscle atrophy, no edema, no contractures Neuro: CN II-XI grossly intact, no focal neuro deficits Psych: Alert, oriented, appropriate affect - Labs CBC & Chem 7: 05/09/19 08:57 05/09/19 08:57 Labs: Abnormal Lab Results - Last 24 Hours (Table) 05/09/19 05/09/19 Range/Units 08:57 08:57 RBC 3.72 L (4.30-5.90) m/uL Hgb 11.5 L (13.0-17.5) gm/dL Hct 35.2 L (39.0-53.0) % Creatinine 0.60 L (0.66-1.25) mg/dL Glucose 313 H (74-99) mg/dL AST 13 L (17-59) U/L Assessment and Plan Assessment: acute exacerbation of COPD - steroids to oral, zithromax, bronchodilators - cough suppressant - mucinex Poorly differentiated non small cell lung/mediastinal ca with mets to brain and likely groin - CT with possible vascular flow compromise - Radiation today Acute on chronic chest pain, related to malignancy - Resume oxy, prn dilaudid for break through - clearly not consistent with cardiac disease Syncope X 3 - tele - echo - suspect might be related to hypoxia - KWESI brain after discussion with Rad Onc - Orthostatics negative - fall precautions Tobacco abuse - cessation - nicotine replacement GERD - PPI DVT prophylaxis: Lovenox Discussed with: patient, nursing, ed physician Anticipated discharge date: 1-[address]: home A total of 65 minutes was spent on the care of this complex patient more than 50% of the time was spent in counseling and care coordination.
--- NOTE | 2019-05-09 13:47 | MR ---
EXAMINATION TYPE: MR brain wo/w con DATE OF EXAM: 05/09/2019 COMPARISON: 03/19/2019 HISTORY: Metastatic lung ca TECHNIQUE: Multiplanar, multisequence images of the brain and brainstem is performed without and with IV contras t, utilizing 7.5 mL intravenous Gadavist . FINDINGS: Diffusion weighted images demonstrate no evidence of a recent infarct or other diffusion ab normality. There is no extra-axial fluid collection or significant white matter signal abnormality. The ventricular system and cisternal spaces are normal in size and appearance. The brain volume is age appropriate. Midline structures demonstrate normal morphology. The craniocervical junction appears within normal limits. There is a 1.7 x 1.75 cm enhancing mass in the left parietal lobe posteriorly with significant vasoge abdiel edema. There is mild mass effect upon the posterior margin of the left lateral ventricle and left temporal horn which is similar to the prior exam. No sizable midline shift noted. Temporal horns are symmetric in size. Linear area of enhancement overlying the willie is seen to be tubular on sagittal and coronal images an d likely vascular. No additional suspicious areas of enhancement. Changes of right mastoiditis and chronic sinusitis noted. IMPRESSION: 1. There are slight incremental reduction in size of the left parietal lobe mass measuring 1.7 x 1.75 cm and previously measuring 1.9 x 1.9 cm. The degree of vasogenic edema and mass effect upon the lef t lateral ventricle is stable. 2. No new enhancing lesions.
--- NOTE | 2019-05-09 16:25 | CDI ---
Documentation Clarification Form Date: 05/09/2019 4:18:42 PM From: Gilda Campbell RN, CCDS Admit Date: 05/08/2019 10:58:00 AM Patient Name: Kannan Patel Visit Number: [id number] ATTENTION: The Clinical Documentation Specialists (CDI) and [facility] Coding Staff appreciate your assistance in clarifying documentation. Please respond to the clarification below the line at the bottom and electronically sign. The CDI & [facility] Coding staff will review the response and follow-up if needed. Please note: Queries are made part of the Legal Health Record. If you have any questions, please contact the author of this message via ITS. Dr. Tawana Grove Cachexia is documented in the PMH of a patient with known cancer, chemo, and radiation. History/Risk Factors: acute exacerbation of COPD, non small cell lung CA with mets to the brain and groin Clinical Indicators: Labs: total protein 6.3, Albumin 3.7 Current BMI: 25.1 Dietary Consult: Insufficient energy intake: increased metabolic demands and catabolic illness in a patient with metastatic lung CA s/p radiation. Treatment: Dietary Consult: Completed 05/08/19 Supplements: Ensure Enlive TID Lab monitoring: AM Daily In your professional opinion, can you please clarify if these findings signify one of the following conditions? Mild Protein-Calorie Malnutrition Moderate Protein-Calorie Malnutrition Severe Protein-Calorie Malnutrition Other condition, please specify Unable to determine (Last Revision: December 2018) Severe Protein-Calorie Malnutrition MTDD
--- NOTE | 2019-05-09 16:31 | CDI ---
Documentation Clarification Form Date: 05/09/2019 4:26:42 PM From: Gilda Campbell RN, CCDS Admit Date: 05/08/2019 10:58:00 AM Patient Name: Kannan Patel Visit Number: [id number] ATTENTION: The Clinical Documentation Specialists (CDI) and [facility] Coding Staff appreciate your assistance in clarifying documentation. Please respond to the clarification below the line at the bottom and electronically sign. The CDI & [facility] Coding staff will review the response and follow-up if needed. Please note: Queries are made part of the Legal Health Record. If you have any questions, please contact the author of this message via ITS. Dr. Tawana Polk declining Hgb and Hct have been noted and lacks specificity to accurately reflect your patients severity of condition and clarification is needed. History/Risk Factors: non small cell lung CA with mets to the brain and groin, radiation, COPD, Syncope Clinical indicators: Hemoglobin: 12.8/11.5 Hematocrit: 38.2/35.2 Treatment: monitoring labs In order to capture the severity of condition, please clarify the clinical significance of the declining Hgb and Hct and etiology if known: Acute on chronic blood loss anemia Chronic blood loss anemia Iron deficiency anemia Drug induced anemia Anemia due to malignancy Nutritional anemia Anemia of chronic disease Unable to determine Other, please specify (Last Revision: March 2017) Anemia due to malignancy MTDD
[2019-05-09] MEDS: MELATONIN 3 MG TABLET PO PRN (22:03)
[2019-05-10] MEDS: SODIUM CHLORIDE 0.45% 1,000 ML IV SCH (03:25)
[2019-05-10] MEDS: IPRATROPIUM-ALBUTEROL 3 ML NEB INHALATION SCH ×4 (08:05→20:24)
[2019-05-10] MEDS: SYMBICORT 80-4.5 MCG INHALER INHALATION SCH ×2 (08:05→20:24)
[2019-05-10] MEDS: predniSONE 20 MG TAB PO SCH (08:25)
[2019-05-10] MEDS: BENZONATATE 100 MG CAP PO SCH ×3 (08:25→23:23)
[2019-05-10] MEDS: FOLIC ACID 1 MG TAB PO SCH (08:25)
[2019-05-10] MEDS: PANTOPRAZOLE 40 MG TABLET PO SCH (08:25)
[2019-05-10] MEDS: NICOTINE 21MG/24HR PATCH TRANSDERM SCH (08:25)
[2019-05-10] MEDS: AZITHROMYCIN 500 MG TAB PO SCH (08:25)
[2019-05-10] MEDS: guaiFENesin 600 MG TABLET.ER PO SCH ×2 (08:25→20:27)
[2019-05-10] MEDS: SERTRALINE 50 MG TAB PO SCH (08:25)
[2019-05-10] MEDS: ENOXAPARIN 40 MG/0.4 ML SYRINGE SQ SCH (08:26)
[2019-05-10 08:39] LABS: HCT 38.5 % (39.0-53.0); HGB 12.3 gm/dL (13.0-17.5); Hypochromasia Slight; MCH 30.3 pg (25.0-35.0); MCHC 31.9 g/dL (31.0-37.0); Mean Platelet Volume 6.9; Platelet Count 306 k/uL (150-450); RBC 4.06 m/uL (4.30-5.90); RDW 14.6 % (11.5-15.5); WBC 10.8 k/uL (3.8-10.6)
[2019-05-10 08:50] LABS: African American GFR (CKD) >90 (>60 ml/min/1.73 sqM); Anion Gap 7 mmol/L; Blood Urea Nitrogen 19 mg/dL (9-20); Calcium 9.2 mg/dL (8.4-10.2); Carbon Dioxide 29 mmol/L (22-30); Chloride 104 mmol/L (98-107); Glucose 167 mg/dL (74-99); Non-African American GFR(CKD) >90 (>60 ml/min/1.73 sqM); Potassium 4.4 mmol/L (3.5-5.1); Sodium 140 mmol/L (137-145)
[2019-05-10] MEDS: ALPRAZolam 0.25 MG TAB PO PRN (09:07)
--- NOTE | 2019-05-10 16:47 | P.PN ---
Subjective Progress Note Date: 05/10/19 Principal diagnosis: metastatic non-small cell lung cancer In follow-up today and is having significant difficulty sleeping due to orthopnea and collapsing of the airway from tumor when he tries to lay flat to sleep. Patient can not walk more than 5 or 10 feet without becoming significantly short of breath, he is O2 dependent. He has a congested cough, minimal expectoration, no hemoptysis, fevers, nausea or vomiting, appetite is poor, his throat is sore. Objective - Vital Signs Vital signs: Vital Signs Temp 97.5 F L 05/10/19 12:33 Pulse 82 05/10/19 12:33 Resp 17 05/10/19 12:33 BP 119/56 05/10/19 12:33 Pulse Ox 88 L 05/10/19 14:16 Intake & Output 05/09/19 05/10/19 05/10/19 18:59 06:59 18:59 Intake Total 960 Balance 960 Weight 77.111 kg Intake: Oral 960 Other: Voiding Method Toilet Toilet Toilet # Voids 3 1 3 - Constitutional General appearance: Present: average body habitus, cooperative, mild distress - EENT Eyes: Present: anicteric sclerae, EOMI ENT: Present: hearing grossly normal, pharyngeal erythema - Respiratory Respiratory: bilateral: rales, wheezing - Cardiovascular Rhythm: regular Heart sounds: normal: S1, S2 Abnormal Heart Sounds: Absent: systolic murmur, diastolic murmur, rub, S3 Gallop, S4 Gallop, click, other - Peripheral edema leg Peripheral Edema: bilateral: Trace - Gastrointestinal General gastrointestinal: Present: normal bowel sounds, soft - Neurologic Neurologic: Present: CNII-XII intact - Musculoskeletal Musculoskeletal: Present: generalized weakness, strength equal bilaterally - Psychiatric Psychiatric: Present: A&O x's 3, appropriate affect, intact judgment & insight - Labs CBC & Chem 7: 05/10/19 08:02 05/10/19 08:02 Labs: Abnormal Lab Results - Last 24 Hours (Table) 05/10/19 05/10/19 Range/Units 08:02 08:02 WBC 10.8 H (3.8-10.6) k/uL RBC 4.06 L (4.30-5.90) m/uL Hgb 12.3 L (13.0-17.5) gm/dL Hct 38.5 L (39.0-53.0) % Glucose 167 H (74-99) mg/dL Microbiology - Last 24 Hours (Table) 05/08/19 09:35 Blood Culture - Preliminary Blood No Growth after 48 hours Assessment and Plan (1) 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 Pt has completed XRT to the brain. Going to have palliative XRT to symptomatic disease in the chest. Chemo is already planned and ready to begin once pt completes XRT. B12 and folic acid for treatment with alimta Current Visit: Yes Status: Acute Priority: High Code(s): C34.90 - MALIGNANT NEOPLASM OF UNSP PART OF UNSP BRONCHUS OR LUNG; C79.31 - SECONDARY MALIGNANT NEOPLASM OF BRAIN SNOMED Code(s): 418417639 (2) COPD exacerbation Narrative/Plan: In part due to tumor. XRT planned. Treatments ordered by Attending. Current Visit: Yes Status: Acute Priority: High Code(s): J44.1 - CHRONIC OBSTRUCTIVE PULMONARY DISEASE W (ACUTE) EXACERBATION SNOMED Code(s): 960568121 (3) Sleeps in sitting position due to orthopnea Narrative/Plan: Patient does have significant disease in the chest which is contributing to adan re orthopnea. He needs to be at least 35-45 angle to sleep, he is only able to sleep on the right side, if he sleeps on the left he cannot breathe at all. Have requested hospital bed for patient, discussed with transplant case manager. Current Visit: Yes Status: Acute Priority: High Code(s): R06.01 - ORTHOPNEA SNOMED Code(s): 687434596 (4) Weakness Narrative/Plan: Weakness is multifactorial including metastatic disease, inability to breathe because of disease. He is not able to ambulate more than 10 or 15 feet without having to stop and rest. Patient would definitely benefit from a wheeled seated walker to assist him in getting to and from all of his appointments. Case was discussed with transplant case manager, paperwork completed for the same. Current Visit: Yes Status: Acute Priority: High Code(s): R53.1 - WEAKNESS SNOMED Code(s): 57327354 Plan: cool solution ordered for sore throat
--- NOTE | 2019-05-10 17:08 | P.PN ---
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 Of note patient was hospitalized here in March 2019. At that point in time he was found to have a mediastinal mass with poorly differentiated non-small cell lung cancer. He was discharged home with pain medications and follow up with oncology. Patient reports that he received radiation to the brain with Dr. Heard but has yet to receive any chemotherapy or radiation chest. He states Dr. Heard has been talking to him about radiation of the chest to slow the growth of his tumor. He presented to the emergency department today secondary to increasing shortness of breath for the last 5 days. In the ER he underwent an extensive evaluation. On arrival his vital signs within normal limits. Laboratory analysis showed a hemoglobin of 12.8, glucose of 105, influenza was negative. He underwent a CTA of the chest which showed an encasing mass in the left main pulmonary artery with subtotal occlusion and decreased perfusion of the pulmonary tree on the left as well as large mediastinal mass with left upper lobe mass with cavitation and associated volume. He was given bronchodilators, Rocephin, Zithromax, and Decadron in the emergency department. He is also given a dose of Solu-Medrol and morphine. He is admitted for further monitoring and treatment of possible acute exacerbation of COPD. Case was discussed with radiation oncology. . He was continued on steroids, bronchodilators, and antibiotics. He underwent his first dose of radiation on 05/09 and plan is for 10 treatments. Repeat MRI of the brain showed decreasing size of mass. Echo showed severe pulmonic stenosis and cardio was consulted. Seen and examined at bedside. Still with shortness of breath and cough. No nausea, vomiting, or diarrhea. Still feeling lightheaded. Feels the Xanax is helping. Family present at bedside. Had a long discussion about how I do not think the symptoms will mediate quickly. However we will need 10 days of present radiation in total. They're able to drive him if radiation is early in the morning between 9-12. Discussed that we can trial of the adnexa help with symptom control as it progresses. Radiation and chemotherapy. The patient again asked about mandaen of his voice. I do not feel he completely understands the severity of his illness. Objective - Vital Signs Vital signs: Vital Signs Temp 97.5 F L 05/10/19 12:33 Pulse 82 05/10/19 12:33 Resp 17 05/10/19 12:33 BP 119/56 05/10/19 12:33 Pulse Ox 88 L 05/10/19 14:16 Intake & Output 05/09/19 05/10/19 05/10/19 18:59 06:59 18:59 Intake Total 960 Balance 960 Weight 77.111 kg Intake: Oral 960 Other: Voiding Method Toilet Toilet Toilet # Voids 3 1 3 - Exam General: ill appearing, no distress, appears at stated age Derm: warm, dry Head: atraumatic, normocephalic, symmetric Eyes: EOMI, no lid lag, anicteric sclera] Mouth: no lip lesion, mucus membranes moist Cardiovascular: S1S2 reg, no murmur, positive posterior tibial pulse bilateral, Lungs: Wheeze and right lung, rhonchi, wheeze, and decreased breath sounds left , no accessory muscle use Abdominal: soft, nontender to palpation, no guarding, no appreciable organo megaly Ext: no gross muscle atrophy, no edema, no contractures Neuro: CN II-XI grossly intact, no focal neuro deficits Psych: Alert, oriented, anxious - Labs CBC & Chem 7: 05/10/19 08:02 05/10/19 08:02 Labs: Abnormal Lab Results - Last 24 Hours (Table) 05/10/19 05/10/19 Range/Units 08:02 08:02 WBC 10.8 H (3.8-10.6) k/uL RBC 4.06 L (4.30-5.90) m/uL Hgb 12.3 L (13.0-17.5) gm/dL Hct 38.5 L (39.0-53.0) % Glucose 167 H (74-99) mg/dL Microbiology - Last 24 Hours (Table) 05/08/19 09:35 Blood Culture - Preliminary Blood No Growth after 48 hours Assessment and Plan Assessment: acute exacerbation of COPD due to tumor and tobacco use - steroids, zithromax, bronchodilators - cough suppressant - mucinex Poorly differentiated non small cell lung/mediastinal ca with mets to brain and likely groin - CT with possible vascular flow compromise - Radiation 12 and 12.6, 10 treatments planned and then chemo, started on folic acid and B12 Acute on chronic chest pain, related to malignancy - Resume oxy, prn dilaudid for break through - clearly not consistent with cardiac disease Syncope X 3 - tele - echo with severe pulmonic stenosis, cardio consulted - suspect might be related to hypoxia - MRI brain after discussion with Rad Onc - Orthostatics negative - fall precautions Tobacco abuse - cessation - nicotine replacement GERD - PPI Sever protein calorie malnutrition - dietitan recs anemia, chronic, likely related to malignancy - follow CBC - B12 X 1 - folic acid Plan for home in AM DVT prophylaxis: Lovenox Discussed with: patient, nursing, family Anticipated discharge date: 1-[address]: home A total of 45 minutes was spent on the care of this complex patient more than 50% of the time was spent in counseling and care coordination.
[2019-05-10] MEDS: SALT AND SODA MOUTHWASH 1,000 ML PO SCH ×2 (17:37→20:46)
[2019-05-10] MEDS: MAG HYDROX/AL HYDROX/SIMETH 30 ML, LIDOCAINE VISCOUS 30 ML, diphenhydrAMINE ELIXIR 75 M... PO SCH ×8 (17:37→23:23)
[2019-05-11] MEDS: SALT AND SODA MOUTHWASH 1,000 ML PO SCH ×3 (01:36→09:23)
[2019-05-11] MEDS: MELATONIN 3 MG TABLET PO PRN (01:38)
[2019-05-11] MEDS: SODIUM CHLORIDE 0.45% 1,000 ML IV SCH (06:27)
[2019-05-11] MEDS: PANTOPRAZOLE 40 MG TABLET PO SCH (09:22)
[2019-05-11] MEDS: SERTRALINE 50 MG TAB PO SCH (09:22)
[2019-05-11] MEDS: predniSONE 20 MG TAB PO SCH (09:22)
[2019-05-11] MEDS: BENZONATATE 100 MG CAP PO SCH (09:23)
[2019-05-11] MEDS: ENOXAPARIN 40 MG/0.4 ML SYRINGE SQ SCH (09:23)
[2019-05-11] MEDS: AZITHROMYCIN 500 MG TAB PO SCH (09:23)
[2019-05-11] MEDS: guaiFENesin 600 MG TABLET.ER PO SCH (09:24)
[2019-05-11] MEDS: NICOTINE 21MG/24HR PATCH TRANSDERM SCH (09:24)
[2019-05-11] MEDS: FOLIC ACID 1 MG TAB PO SCH (09:24)
[2019-05-11] MEDS: MAG HYDROX/AL HYDROX/SIMETH 30 ML, LIDOCAINE VISCOUS 30 ML, diphenhydrAMINE ELIXIR 75 M... PO SCH ×4 (09:30)
[2019-05-11] MEDS: ALPRAZolam 0.25 MG TAB PO PRN (09:38)
[2019-05-11] MEDS: SYMBICORT 80-4.5 MCG INHALER INHALATION SCH (09:59)
[2019-05-11] MEDS: IPRATROPIUM-ALBUTEROL 3 ML NEB INHALATION SCH ×2 (09:59→12:56)
[2019-05-11 11:23] VITALS: BP 122/67; PULSE 70; RESP 18; TEMP 98.2
--- NOTE | 2019-05-11 19:49 | P.DS ---
Providers Date of admission: 05/08/19 10:58 Expected date of discharge: 05/11/19 Attending physician: Tawana Grove DO Consults: 05/08/19 13:57 Consult Physician Routine Consulting Provider: Matthew Heard Consult Reason/Comments: Lung CA impingment on Pulm Artery Do you want consulting provider notified?: Yes Consult Physician Routine Consulting Provider: Edgar Chauhan Consult Reason/Comments: Lung CA impingement on Pulmonary ARtery Do you want consulting provider notified?: Yes 05/10/19 12:50 Consult Physician Routine Consulting Provider: Derek Jesus Consult Reason/Comments: severe pulmonic stenosis Do you want consulting provider notified?: Yes Primary care physician: Tuan Elise Hospital Course: Discharge Diagnosis: Acute exacerbation of COPD 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 Acute on chronic chest pain related to malignancy Acute hypoxic respiratory failure, now chronic Syncopal event 3 Tobacco abuse GERD Severe protein calorie malnutrition Anemia likely related to chronic malignancy Hospital Course: Patient is a 58-year-old male past medical history of 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 Of note patient was hospitalized here in March 2019. At that point in time he was found to have a mediastinal mass with poorly differentiated non-small cell lung cancer. He was discharged home with pain medications and follow up with oncology. Patient received radiation to the brain with Dr. Heard but had yet to receive any chemotherapy or radiation to the chest. He presented to the emergency department secondary to increasing shortness of breath for 5 days. In the ER he underwent an extensive evaluation. On arrival his vital signs within normal limits. Laboratory analysis showed a hemoglobin of 12.8, glucose of 105, influenza was negative. He underwent a CTA of the chest which showed an encasing mass in the left main pulmonary artery with subtotal occlusion and decreased perfusion of the pulmonary tree on the left as well as large mediastinal mass with left upper lobe mass with cavitation and associated volume. He was given bronchodilators, Rocephin, Zithromax, and Decadron in the emergency department. He was also given a dose of Solu-Medrol and morphine. He was admitted for further monitoring and treatment of possible acute exacerbation of COPD. Case was discussed with radiation oncology and radiation to his lung mass. He was continued on steroids, bronchodilators, and antibiotics his breathing improved significantly, though he still could not lay flat without significant shortness of breath. He underwent his first dose of radiation on 05/09 and plan is for 10 treatments. Repeat MRI of the brain showed decreasing size of mass. Echo showed severe pulmonic stenosis and case was discussed with cardio. On review of echo it was consistent with severe pulm HTN but the pulmonic valve appeared structurly normal. He was offered palliative care but declined. Arrangements were made for hospital bed, nebulizer, home O2, and walker. He was determined stable for discharge home. Plan is to complete radiation therapy and then start chemo therapy. He did have some difficulty laying flat for 1 treatment and I have asked him to take Xanax and a breathing treatment prior to leaving for radiation on monday. Unfortunately I do not this that the patient is fully aware of this overall prognosis and likely symptoms to develop though this has been explained numerous times. He is at high likely kim for readmission. Patient seen and examined at bedside. Still with SOB which is improved from admission and chest pain is improved from admission. No nausea or vomiting. All questions answered and his mother updated. Vital signs reviewed and stable. General: non toxic, no distress, appears at stated age Derm: warm, dry Head: atraumatic, normocephalic, symmetric Eyes: EOMI, no lid lag, anicteric sclera Mouth: no lip lesion, mucus membranes moist Cardiovascular: S1S2 reg, no murmur, positive posterior tibial pulse bilateral, Lungs: wheeze and ronchi bilateral with increased air movement , no accessory muscle use Abdominal: soft, nontender to palpation, no guarding, no appreciable organomegaly Ext: no gross muscle atrophy, no edema, no contractures Neuro: CN II-XI grossly intact, no focal neuro deficits Psych: Alert, oriented, appropriate affect A total of 45 minutes of time were spent preparing this complex discharge summary . Patient Condition at Discharge: Stable Plan - Discharge Summary Discharge Rx Participant: No New Discharge Prescriptions: New Ipratropium-Albuterol Nebulize [Duoneb 0.5 mg-3 mg/3 ml Soln] 3 ml INHALATION RT-QID #120 ampul.neb guaiFENesin [Mucinex] 600 mg PO Q12HR #60 tablet.er Nystatin 100,000 Unit/ml Susp [Mycostatin Oral Susp] 5 ml PO QID 14 Days #1 bottle predniSONE 40 mg PO DAILY #10 tab Benzonatate [Tessalon Perles] 100 mg PO TID PRN #90 cap PRN Reason: Cough ALPRAZolam [Xanax] 0.5 mg PO TID PRN #21 tablet PRN Reason: Anxiety Azithromycin [Zithromax] 500 mg PO DAILY #3 tab Continue Albuterol Inhaler [Ventolin Hfa Inhaler] 2 puff INHALATION RT-Q6H PRN PRN Reason: Shortness Of Breath Sertraline [Zoloft] 50 mg PO DAILY #30 tab Fluticasone/Vilanterol [Breo Ellipta 100-25 Mcg Inhaler] 1 puff INHALATION RT-BID #1 device Folic Acid 1 mg PO DAILY #30 tab Nicotine 21Mg/24Hr Patch [Habitrol] 1 patch TRANSDERM DAILY #14 patch oxyCODONE HCL [oxyCODONE HCL (IR)] 15 mg PO Q6H PRN #28 tab PRN Reason: Pain Pantoprazole [Protonix] 40 mg PO AC-BRKFST #30 tablet.dr Discharge Medication List Albuterol Inhaler [Ventolin Hfa Inhaler] 2 puff INHALATION RT-Q6H PRN 03/18/19 [History] Sertraline [Zoloft] 50 mg PO DAILY #30 tab 03/25/19 [Rx] ALPRAZolam [Xanax] 0.5 mg PO TID PRN #21 tablet 05/11/19 [Rx] Azithromycin [Zithromax] 500 mg PO DAILY #3 tab 05/11/19 [Rx] Benzonatate [Tessalon Perles] 100 mg PO TID PRN #90 cap 05/11/19 [Rx] Fluticasone/Vilanterol [Breo Ellipta 100-25 Mcg Inhaler] 1 puff INHALATION RT- BID #1 device 05/11/19 [Rx] Folic Acid 1 mg PO DAILY #30 tab 05/11/19 [Rx] Ipratropium-Albuterol Nebulize [Duoneb 0.5 mg-3 mg/3 ml Soln] 3 ml INHALATION RT-QID #120 ampul.neb 05/11/19 [Rx] Nicotine 21Mg/24Hr Patch [Habitrol] 1 patch TRANSDERM DAILY #14 patch 05/11/19 [Rx] Nystatin 100,000 Unit/ml Susp [Mycostatin Oral Susp] 5 ml PO QID 14 Days #1 bottle 05/11/19 [Rx] Pantoprazole [Protonix] 40 mg PO AC-BRKFST #30 tablet.dr 05/11/19 [Rx] guaiFENesin [Mucinex] 600 mg PO Q12HR #60 tablet.er 05/11/19 [Rx] oxyCODONE HCL [oxyCODONE HCL (IR)] 15 mg PO Q6H PRN #28 tab 05/11/19 [Rx] predniSONE 40 mg PO DAILY #10 tab 05/11/19 [Rx] Follow up Appointment(s)/Referral(s): Edgar Chauhan MD [STAFF PHYSICIAN] - 1 Week [place] [NON-STAFF] - [facility], [NON-STAFF] - Matthew Heard MD [STAFF PHYSICIAN] - 05/13/19 11:45 am (It pt is being discharged over the weekend, Radiation treatment appointment is 05/13/19, at 11:45am. ) Tuan Elise [Primary Care Provider] - 1-2 days Patient Instructions/Handouts: Benzonatate (By mouth), Alprazolam (By mouth), Prednisone (By mouth), Nystatin (By mouth), Azithromycin (By mouth), Folic Acid (By mouth), Nicotine (Absorbed through the skin), Oxycodone, Rapid Release (By mouth), Pantoprazole (By mouth), Lung Cancer (DC) Activity/Diet/Wound Care/Special Instructions: pt radiations treatments are set up for 11:45 Monday-Monday starting next week Monday05/13/2019 pt sister will transport, per the radiation dept the pt should be in and out in 15min. Please take breathing treatments and a Xanax BEFORE RADIATION TREATMENTS Activity: as tolerated Diet: regular Discharge Disposition: HOME WITH HOME HEALTH SERVICES
== END 2019-05-11 14:30 | disposition home health service (06) | DRG 180 ==
LOC: EC 09:08 → 3NMEDONC 10:58
PROVIDERS: ADMIT Internal Medicine; ATTEND Internal Medicine
PROC: DB021ZZ Beam Radiation of Lung using Photons 1 - 10 MeV (ICD-10-PCS; principal; 2019-05-08)
DX: C34.90 Malignant neoplasm of unspecified part of unspecified bronchus or lung (principal); E43 Unspecified severe protein-calorie malnutrition; Q25.6 Stenosis of pulmonary artery; G93.6 Cerebral edema; J44.0 Chronic obstructive pulmonary disease with (acute) lower respiratory infection; C79.31 Secondary malignant neoplasm of brain; I82.C12 Acute embolism and thrombosis of left internal jugular vein; J44.1 Chronic obstructive pulmonary disease with (acute) exacerbation; D63.0 Anemia in neoplastic disease; Z68.25 Body mass index [BMI] 25.0-25.9, adult; F17.200 Nicotine dependence, unspecified, uncomplicated; F32.9 Major depressive disorder, single episode, unspecified; G89.29 Other chronic pain; K21.9 Gastro-esophageal reflux disease without esophagitis; Z79.899 Other long term (current) drug therapy; Z82.5 Family history of asthma and other chronic lower respiratory diseases; Z85.21 Personal history of malignant neoplasm of larynx; Z86.718 Personal history of other venous thrombosis and embolism; Z92.3 Personal history of irradiation; Z71.6 Tobacco abuse counseling; Z88.1 Allergy status to other antibiotic agents; Z88.5 Allergy status to narcotic agent
CPT/HCPCS: 36415; 70553; 71045; 71275; 77290; 77307; 77332; 77334; 77412; 80048; 80053; 83605; 83735; 84484; 85025; 85027; 85610; 85730; 87040; 87502; 93005; 93306; 94640; 96361; 96365; 96375; 99285

== ENCOUNTER 2019-05-13 12:31 | Inpatient (IN) | payer MEDICARE, BC ==
[2019-05-13] MEDS ORDERED: SODIUM CHLORIDE 0.9% 1,000 ML IV ONE (13:12)
[2019-05-13] MEDS ORDERED: HYDROmorphone 1 MG/ML 1 ML SYRINGE IVP STA ×2 (13:12→15:58)
[2019-05-13] MEDS ORDERED: VANCOMYCIN IV PER PHARMACY 1 EACH MISC MISCELLANE PRN ×2 (13:20→18:40)
[2019-05-13] MEDS ORDERED: cefTRIAXone IN SWFI 1,000 MG/10 ML SYRINGE IVP STA (13:20)
[2019-05-13] MEDS ORDERED: VANCOMYCIN 1,500 MG in SODIUM CHLORIDE 0.9% 250 ML IVPB STA (13:26)
--- NOTE | 2019-05-13 13:29 | ED ---
General Adult HPI - General Chief complaint: Urogenital Stated complaint: poss infection Time Seen by Provider: 05/13/19 13:01 Source: patient, RN notes reviewed Mode of arrival: wheelchair Limitations: no limitations - History of Present Illness Initial comments: 58-year-old male with stage IV lung cancer presenting for evaluation of pain and swelling near his rectum and urinary retention. Patient was presenting to outpatient oncology office with plan for radiation regarding his stage IV lung cancer with metastases. They have noted that the patient had not urinated in approximately 8 hours he was complaining of lower abdominal pain as well as pain around his rectum. His family member states he's had fevers over the past several days as well as night sweats. He is received radiation but is not currently on chemotherapy for his cancer. He does report dyspnea however this is at baseline. History of COPD as well as lung CVA on home oxygen. - Related Data Home Medications Medication Instructions Recorded Confirmed RX: Albuterol Inhaler [Ventolin 2 puff INHALATION RT-Q6H PRN 03/18/19 05/08/19 Hfa Inhaler] Previous Rx's Medication Instructions Recorded RX: Sertraline [Zoloft] 50 mg PO DAILY #30 tab 03/25/19 ALPRAZolam [Xanax] 0.5 mg PO TID PRN #21 tablet 05/11/19 RX: Azithromycin [Zithromax] 500 mg PO DAILY #3 tab 05/11/19 RX: Benzonatate [Tessalon Perles] 100 mg PO TID PRN #90 cap 05/11/19 RX: Fluticasone/Vilanterol [Breo 1 puff INHALATION RT-BID #1 device 05/11/19 Ellipta 100-25 Mcg Inhaler] RX: Folic Acid 1 mg PO DAILY #30 tab 05/11/19 RX: Ipratropium-Albuterol Nebulize 3 ml INHALATION RT-QID #120 05/11/19 [Duoneb 0.5 mg-3 mg/3 ml Soln] ampul.neb RX: Nicotine 21Mg/24Hr Patch 1 patch TRANSDERM DAILY #14 patch 05/11/19 [Habitrol] RX: Nystatin 100,000 Unit/ml Susp 5 ml PO QID 14 Days #1 bottle 05/11/19 [Mycostatin Oral Susp] RX: Pantoprazole [Protonix] 40 mg PO AC-BRKFST #30 tablet. 05/11/19 RX: guaiFENesin [Mucinex] 600 mg PO Q12HR #60 tablet.er 05/11/19 RX: oxyCODONE HCL [oxyCODONE HCL 15 mg PO Q6H PRN #28 tab 05/11/19 (IR)] RX: predniSONE 40 mg PO DAILY #10 tab 05/11/19 Allergies Allergy/AdvReac Type Severity Reaction Status Date / Time metronidazole [From Flagyl] Allergy Swelling Verified 05/08/19 11:10 morphine AdvReac CASTANEDA Verified 05/08/19 11:14 Review of Systems ROS Statement: Those systems with pertinent positive or pertinent negative responses have been documented in the HPI. ROS Other: All systems not noted in ROS Statement are negative. 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 History of Any Multi-Drug Resistant Organisms: None Reported Past Surgical History: Appendectomy, Orthopedic Surgery Additional Past Surgical History / Comment(s): L lung biosy/bronchoscopy with bx, L index/thumb tendon repair, R middle finger tendon repair. Past Anesthesia/Blood Transfusion Reactions: No Reported Reaction Past Psychological History: Depression Smoking Status: Current every day smoker Past Alcohol Use History: Occasional Past Drug Use History: Unable to Obtain - Past Family History Mother Family Medical History: Cancer Additional Family Medical History / Comment(s): Cervical cancer Father Family Medical History: COPD General Exam Limitations: no limitations General appearance: alert, in distress Head exam: Present: atraumatic, normocephalic Eye exam: Present: normal appearance, PERRL ENT exam: Present: mucous membranes dry Neck exam: Present: normal inspection. Absent: tenderness, meningismus Respiratory exam: Present: wheezes, decreased breath sounds. Absent: respiratory distress Cardiovascular Exam: Present: normal rhythm, tachycardia GI/Abdominal exam: Present: soft. Absent: distended, tenderness, guarding Rectal exam: Present: tenderness, other (Large gluteal abscess with extension into the rectum erythema, fluctuance and induration) Extremities exam: Present: normal inspection, full ROM Back exam: Present: normal inspection Neurological exam: Present: alert Psychiatric exam: Present: normal affect, normal mood Skin exam: Present: warm, dry, erythema (As above) Course Vital Signs 05/13/19 05/13/19 05/13/19 12:36 13:10 14:05 Temperature 97.5 F L Pulse Rate 115 H 86 85 Respiratory 19 20 20 Rate Blood Pressure 74/48 86/51 100/57 O2 Sat by Pulse 98 100 95 Oximetry 05/13/19 15:59 Temperature Pulse Rate 84 Respiratory 18 Rate Blood Pressure 108/51 O2 Sat by Pulse 98 Oximetry EKG Findings - EKG Comments: EKG Findings:: EKG: Normal sinus rhythm rate of 87, AK interval 140, QRS duration 78, QTC [address] segment elevation Procedures - Incision & Drainage Consent Obtained: verbal consent Site: other (left gluteal) I&D Cleaning Method: Chloroprep Scalpel Used: #11 I&D Drainage Obtained: Pus, Blood Culture Obtained?: Yes Patient Tolerated Procedure: well Medical Decision Making - Medical Decision Making 58-year-old male with stage IV lung cancer presenting with concern for urinary retention as well as pain and swelling in his gluteal region. Exam reveals erythema, induration and fluctuance in the left medial region. Patient is tachycardic and hypertensive on presentation. I did initiate IV antibiotics and order computed tomography scan of the abdomen and pelvis. CT shows significant amount of free air in the lower pelvis and gluteal region. This may be fistula vs gas-forming infection. There is fat stranding and induration with no drainable abscess on CT. I discussed this with on-call general surgery . He recommends incision and drainage. Did perform this in the most fluctuant area and both blood and pus were obtained. This was sent for culture. He has a elevated white blood cell count of 11. He had a mild lactic acidosis 2.7. After IV hydration and IV antibiotics his vital signs significantly impr vinay. His pain is controlled with IV Dilaudid. He's admitted to internal medicine with general surgery on consult. I discussed the case with both the admitting physician and the surgeon. Diagnosis: Perineal infection, free air, concern for fistula. - Lab Data Result diagrams: 05/13/19 13:31 05/13/19 13:31 Lab Results 05/13/19 05/13/19 05/13/19 Range/Units 13:31 13:31 13:31 WBC 18.0 H (3.8-10.6) k/uL RBC 4.26 L (4.30-5.90) m/uL Hgb 13.0 (13.0-17.5) gm/dL Hct 40.3 (39.0-53.0) % MCV 94.7 (80.0-100.0) fL MCH 30.5 (25.0-35.0) pg MCHC 32.2 (31.0-37.0) g/dL RDW 13.9 (11.5-15.5) % Plt Count 275 (150-450) k/uL Neutrophils % 94 % Lymphocytes % 2 % Monocytes % 2 % Eosinophils % 1 % Basophils % 0 % Neutrophils # 17.0 H (1.3-7.7) k/uL Lymphocytes # 0.4 L (1.0-4.8) k/uL Monocytes # 0.3 (0-1.0) k/uL Eosinophils # 0.2 (0-0.7) k/uL Basophils # 0.0 (0-0.2) k/uL Hypochromasia Slight PT (9.0-12.0) sec INR (<1.2) APTT (22.0-30.0) sec Sodium 138 (137-145) mmol/L Potassium 4.6 (3.5-5.1) mmol/L Chloride 100 (98-107) mmol/L Carbon Dioxide 31 H (22-30) mmol/L Anion Gap 7 mmol/L BUN 25 H (9-20) mg/dL Creatinine 0.80 (0.66-1.25) mg/dL Est GFR (CKD-EPI)AfAm >90 (>60 ml/min/1.73 sqM) Est GFR (CKD-EPI)NonAf >90 (>60 ml/min/1.73 sqM) Glucose 225 H (74-99) mg/dL Plasma Lactic Acid Kennedy 2.7 H* (0.7-2.0) mmol/L Calcium 9.1 (8.4-10.2) mg/dL Total Bilirubin 1.0 (0.2-1.3) mg/dL AST 20 (17-59) U/L ALT 42 (21-72) U/L Alkaline Phosphatase 89 (38-126) U/L Total Protein 6.3 (6.3-8.2) g/dL Albumin 3.7 (3.5-5.0) g/dL 05/13/19 Range/Units 13:31 WBC (3.8-10.6) k/uL RBC (4.30-5.90) m/uL Hgb (13.0-17.5) gm/dL Hct (39.0-53.0) % MCV (80.0-100.0) fL MCH (25.0-35.0) pg MCHC (31.0-37.0) g/dL RDW (11.5-15.5) % Plt Count (150-450) k/uL Neutrophils % % Lymphocytes % % Monocytes % % Eosinophils % % Basophils % % Neutrophils # (1.3-7.7) k/uL Lymphocytes # (1.0-4.8) k/uL Monocytes # (0-1.0) k/uL Eosinophils # (0-0.7) k/uL Basophils # (0-0.2) k/uL Hypochromasia PT 10.7 (9.0-12.0) sec INR 1.0 (<1.2) APTT 26.4 (22.0-30.0) sec Sodium (137-145) mmol/L Potassium (3.5-5.1) mmol/L Chloride (98-107) mmol/L Carbon Dioxide (22-30) mmol/L Anion Gap mmol/L BUN (9-20) mg/dL Creatinine (0.66-1.25) mg/dL Est GFR (CKD-EPI)AfAm (>60 ml/min/1.73 sqM) Est GFR (CKD-EPI)NonAf (>60 ml/min/1.73 sqM) Glucose (74-99) mg/dL Plasma Lactic Acid Kennedy (0.7-2.0) mmol/L Calcium (8.4-10.2) mg/dL Total Bilirubin (0.2-1.3) mg/dL AST (17-59) U/L ALT (21-72) U/L Alkaline Phosphatase (38-126) U/L Total Protein (6.3-8.2) g/dL Albumin (3.5-5.0) g/dL Critical Care Time Critical Care Time: Yes Total Critical Care Time: 35 Disposition Clinical Impression: Lung cancer, Brain metastasis, Perineal fistula, Sepsis Disposition: ADMITTED IP TO THIS [facility] Condition: Serious Is patient prescribed a controlled substance at d/c from ED?: No Referrals: Tuan Elise [Primary Care Provider] - 1-2 days Decision to Admit Reason: Admit from EC Decision Date: 05/13/19 Decision Time: 16:31
[2019-05-13 13:46] LABS: Basophils % (A) 0 %; Eosinophils # (A) 0.2 k/uL (0-0.7); Eosinophils % (A) 1 %; HCT 40.3 % (39.0-53.0); Hypochromasia Slight; Lymphocytes # (A) 0.4 k/uL (1.0-4.8); Lymphocytes % (A) 2 %; MCH 30.5 pg (25.0-35.0); MCHC 32.2 g/dL (31.0-37.0); MCV 94.7 fL (80.0-100.0); Mean Platelet Volume 6.9; Monocytes # (A) 0.3 k/uL (0-1.0); Monocytes % (A) 2 %; Neutrophils % (A) 94 %; Platelet Count 275 k/uL (150-450); RBC 4.26 m/uL (4.30-5.90); RDW 13.9 % (11.5-15.5)
[2019-05-13 14:00] LABS: Partial Thromboplastin Time 26.4 sec (22.0-30.0); Prothrombin Time 10.7 sec (9.0-12.0)
[2019-05-13 14:08] LABS: ALT 42 U/L (21-72); AST 20 U/L (17-59); African American GFR (CKD) >90 (>60 ml/min/1.73 sqM); Albumin 3.7 g/dL (3.5-5.0); Alkaline Phosphatase 89 U/L (38-126); Anion Gap 7 mmol/L; Blood Urea Nitrogen 25 mg/dL (9-20); Calcium 9.1 mg/dL (8.4-10.2); Carbon Dioxide 31 mmol/L (22-30); Chloride 100 mmol/L (98-107); Glucose 225 mg/dL (74-99); Non-African American GFR(CKD) >90 (>60 ml/min/1.73 sqM); Potassium 4.6 mmol/L (3.5-5.1); Sodium 138 mmol/L (137-145); Total Protein 6.3 g/dL (6.3-8.2)
[2019-05-13] MEDS ORDERED: SODIUM CHLORIDE 0.9% 500 ML 500 ML IV ONE (15:02)
[2019-05-13] MEDS ORDERED: CLINDAMYCIN 600 MG in DEXTROSE 5% IN WATER 50 ML IVPB STA ×2 (15:47)
--- NOTE | 2019-05-13 15:49 | CT ---
EXAMINATION TYPE: CT abdomen pelvis w con DATE OF EXAM: 05/13/2019 COMPARISON: PET/CT 03/30/2019 INDICATION: rectal and buttock pain. History of lung cancer with mets. Patient unable to lay prone. DLP: 894.9 mGycm, Automated exposure control for dose reduction was used. CONTRAST: 100 mL of Isovue 300. Study performed without Oral Contrast TECHNIQUE: Axial images were obtained from above the diaphragm to the pubic rami in the axial plane a t 5 mm thick sections. Reconstructed images are reviewed on the computer in the coronal plane. FINDINGS: Limited CT sections are obtained the lung bases. The lung bases are clear. CT ABDOMEN: Liver: Normal Spleen: Normal Pancreas: Normal Adrenal glands: The adrenal glands are normal. Gallbladder: Contracted Kidneys: No masses are evident. No hydronephrosis is present. There is a 1.5 cm cyst in the posteri or lateral left mid kidney. Delayed images were obtained through the kidneys, which remain unremarka ble. Aorta: Vascular calcification is within the aorta. Inferior vena cava: Normal. CT PELVIS: There is free air within the peritoneal region. Increased density is within the peritoneal and buttocks region. Findings can be compatible with infection. Underlying abscess is not identified . Fistula formation could be considered. Fistula is not specifically identified on this exam. Loops of bowel within the abdomen and pelvis are normal. There are loops of bowel which are incom pletely distended or lack oral contrast limiting their evaluation. Appendix: Normal as visualized. Urinary bladder: Distended. Genitourinary structures: Mildly prominent prostate Osseous structures: No suspicious lytic or sclerotic lesions. Facet degenerative changes within the l umbar spine. IMPRESSIONS: 1. Free air with increased density within the peroneal region can be compatible with infection or fi stula formation. No underlying abscess is identified at this time.
[2019-05-13] MEDS ORDERED: LIDOCAINE URO-JET JELLY 2% 5 ML KIT URETHRAL ONE (15:55)
[2019-05-13] MEDS ORDERED: NALOXONE 0.4 MG/ML 1 ML VIAL IV PRN (16:15)
[2019-05-13] MEDS ORDERED: HYDROmorphone 1 MG/ML 1 ML SYRINGE IVP PRN (16:15)
[2019-05-13] MEDS ORDERED: ACETAMINOPHEN TAB 325 MG TAB PO PRN (16:15)
[2019-05-13] MEDS ORDERED: PIPERACILLIN-TAZOBACTAM 3.375 GM in SODIUM CHLORIDE 0.9% 100 ML IVPB STA (16:25)
[2019-05-13] MEDS: SODIUM CHLORIDE 0.9% 1,000 ML IV SCH (16:27)
[2019-05-13] MEDS ORDERED: ALPRAZolam 0.25 MG TAB PO PRN (18:36)
[2019-05-13] MEDS ORDERED: MELATONIN 3 MG TABLET PO PRN (18:36)
[2019-05-13] MEDS ORDERED: ONDANSETRON 4 MG/2 ML VIAL IVP PRN (18:36)
[2019-05-13] MEDS ORDERED: ALBUTEROL NEBULIZED 2.5 MG/3 ML INHALATION PRN (18:38)
[2019-05-13] MEDS ORDERED: ALPRAZolam 0.5 MG TAB PO PRN (18:38)
[2019-05-13] MEDS ORDERED: BENZONATATE 100 MG CAP PO PRN (18:38)
--- NOTE | 2019-05-13 18:42 | P.HPIM ---
History of Present Illness H&P Date: 05/13/19 Chief Complaint: rectal pain Patient is a 58-year-old male well-known to our service secondary to known stage IV non-small cell lung cancer with recent hospitalization from 05/08 through 05/11 secondary to worsening shortness of breath. During that hospital stay he was found to have growth of his lung tumor with compromise of the vascular flow to the left side of the lung. He was started on urgent radiation and has received 1 treatment. He went to receive his second treatment today but secondary to his possible infection and rectal pain they sent him to the e mergency department. He also has a history of tobacco abuse and prior alcohol use. He presented to the emergency department today secondary to rectal pain and concern for infection of the area. When he presented to the emergency department on 05/13 he was found to be hypotensive with a blood pressure 74/48 and tachycardic with a heart rate of 1:15. Laboratory analysis showed an elevated white blood cell count at 18, carbon dioxide of 31, BUN 25, glucose 225, lactic acid 2.7, and normal INR. He subsequently underwent a CT abdomen and pelvis this showed free air with increased density within the peritoneal region compatible with infection or fistula formation with no underlying abscess. Dr. Combs of general surgery was consulted who recommended bedside incision and drainage by the ER physician. This was performed with approximately 2 mL of purulent drainage noted. Patient received a dose of Rocephin, Zosyn, clindamycin, and vancomycin in the emergency department. Orders were placed for admission for perirectal cellulitis, gas producing organism, and sepsis. Patient seen and examined at bedside in the emergency department with family present. He reports that when he was discharged on 05/11 he initially felt well. He went to bed that night and woke up Monday morning having some rectal pain. He went into shower and felt a large sore on his bottom. He continued to have worsening rectal pain. They called his family physician office this morning and was set to have an appointment at 4 PM. They also called radiation therapy and told him of the change. He went to show radiation therapy today and they noted a possible infection and sent him to the emergency department. He reports that he has been eating and drinking well since discharge, that his breathing is at his baseline, chest pain is unchanged. He has not taken his temperature at home but reports some riders this morning as well as sweats and feeling cold. He is not having diarrhea but did have one bowel movement since discharge from the hospital. He denies any dysuria. He continues to have a left groin mass which is known. Review of Systems Pertinent positives and negatives as discussed in HPI, a complete review of systems was performed and all other systems are negative. 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 History of Any Multi-Drug Resistant Organisms: None Reported Past Surgical History: Appendectomy, Orthopedic Surgery Additional Past Surgical History / Comment(s): L lung biosy/bronchoscopy with bx, L index/thumb tendon repair, R middle finger tendon repair. Past Anesthesia/Blood Transfusion Reactions: No Reported Reaction Past Psychological History: Depression Smoking Status: Current every day smoker Past Alcohol Use History: Occasional Past Drug Use History: Unable to Obtain Additional History: Moving with his dad, has a hospital bed at home. - Past Family History Mother Family Medical History: Cancer Additional Family Medical History / Comment(s): Cervical cancer Father Family Medical History: COPD Medications and Allergies Home Medications Medication Instructions Recorded Confirmed Type Albuterol Inhaler [Ventolin Hfa 2 puff INHALATION RT-Q6H PRN 03/18/19 05/13/19 History Inhaler] Sertraline [Zoloft] 50 mg PO DAILY #30 tab 03/25/19 05/13/19 Rx ALPRAZolam [Xanax] 0.5 mg PO TID PRN #21 tablet 05/11/19 05/13/19 Rx Azithromycin [Zithromax] 500 mg PO DAILY #3 tab 05/11/19 05/13/19 Rx Benzonatate [Tessalon Perles] 100 mg PO TID PRN #90 cap 05/11/19 05/13/19 Rx Fluticasone/Vilanterol [Breo 1 puff INHALATION RT-BID #1 device 05/11/19 05/13/19 Rx Ellipta 100-25 Mcg Inhaler] Folic Acid 1 mg PO DAILY #30 tab 05/11/19 05/13/19 Rx Ipratropium-Albuterol Nebulize 3 ml INHALATION RT-QID #120 05/11/19 05/13/19 Rx [Duoneb 0.5 mg-3 mg/3 ml Soln] ampul.neb Nicotine 21Mg/24Hr Patch [Habitrol] 1 patch TRANSDERM DAILY #14 patch 05/11/19 05/13/19 Rx Nystatin 100,000 Unit/ml Susp 5 ml PO QID 14 Days #1 bottle 05/11/19 05/13/19 Rx [Mycostatin Oral Susp] Pantoprazole [Protonix] 40 mg PO AC-BRKFST #30 tablet.dr 05/11/19 05/13/19 Rx guaiFENesin [Mucinex] 600 mg PO Q12HR #60 tablet.er 05/11/19 05/13/19 Rx oxyCODONE HCL [oxyCODONE HCL (IR)] 15 mg PO Q6H PRN #28 tab 05/11/19 05/13/19 Rx predniSONE 40 mg PO DAILY #10 tab 05/11/19 05/13/19 Rx Apixaban [Eliquis] 5 mg PO BID 05/13/19 05/13/19 History Allergies Allergy/AdvReac Type Severity Reaction Status Date / Time metronidazole [From Flagyl] Allergy Swelling Verified 05/08/19 11:10 morphine AdvReac CASTANEDA Verified 05/08/19 11:14 Physical Exam Osteopathic Statement: *. No significant issues noted on an osteopathic structural exam other than those noted in the History and Physical/Consult. Vitals: Vital Signs Temp Pulse Resp BP Pulse Ox 05/13/19 17:00 98.3 F 78 18 97/51 99 05/13/19 15:59 84 18 108/51 98 05/13/19 14:05 85 20 100/57 95 05/13/19 13:10 86 20 86/51 100 05/13/19 12:36 97.5 F L 115 H 19 74/48 98 Intake and Output 05/13/19 05/13/19 05/13/19 06:59 14:59 22:59 Output Total 700 Balance -700 Output: Urine 700 Uretheral (Zapien) 700 Other: Weight 78.925 kg General: Ill appearing, mild distress secondary to pain,, appears at stated age, normal weight Derm: Red area of induration. Rectal, no continued purulent drainage, some bloodsoaked drainage. no unusual rashes/lesions no unusual ecchymoses, warm, dry Head: atraumatic, normocephalic, symmetric Eyes: EOMI, no lid lag, anicteric sclera, pupils equal round reactive to light ENT: Nose and ears atraumatic, no thrush, no pharyngeal erythema Neck: No thyromegaly, no cervical lymphadenopathy, trachea midline, supple Mouth: no lip lesion, mucus membranes moist, hoarse voice Cardiovascular: S1S2 reg, no murmur, positive posterior tibial pulse bilateral, no edema, capillary refill less than 2 seconds Lungs: Coarse breath sounds bilaterally with rhonchi on left apex, no accessory muscle use Abdominal: soft, nontender to palpation, no guarding, no appreciable organomegaly, normal bowel sounds Ext: no gross muscle atrophy, muscle strength 5 out of 5 in all 4 extremities grossly, no contractures, Neuro: CN II-XI grossly intact, light touch intact all 4 extremities, finger to nose within normal limits, Psych: Alert, oriented, flat affect Results CBC & Chem 7: 05/13/19 13:31 05/13/19 13:31 Labs: Abnormal Lab Results - Last 24 Hours (Table) 05/13/19 05/13/19 12 Range/Units 13:31 13:31 13:31 WBC 18.0 H (3.8-10.6) k/uL RBC 4.26 L (4.30-5.90) m/uL Neutrophils # 17.0 H (1.3-7.7) k/uL Lymphocytes # 0.4 L (1.0-4.8) k/uL Carbon Dioxide 31 H (22-30) mmol/L BUN 25 H (9-20) mg/dL Glucose 225 H (74-99) mg/dL Plasma Lactic Acid Kennedy 2.7 H* (0.7-2.0) mmol/L CT scan - pelvis: report reviewed, image reviewed Thrombosis Risk Factor Assmnt - DVT/VTE Prophylaxis DVT/VTE Prophylaxis: Pharmacologic Prophylaxis ordered Assessment and Plan Assessment: Perirectal cellulitis with soft tissue infection with possible fistula formation -Status post I&D in the ER -Continue with Unasyn and clindamycin for possible gas-forming organism -Continue Vanco for possible MRSA -Consult ID -Surgical recommendations -Blood cultures -IV fluids Sepsis -IV fluids -Treatment as above Elevated lactic acid -IV fluids -Repeat lactic acid until less than 2 Stage IV non-small cell lung cancer -Currently undergoing radiation therapy -Plans are to start chemotherapy soon -Poor overall prognosis -Consult oncology and radiation oncology Tobacco abuse -Nicotine replacement -Cessation COPD with recent acute exacerbation -Continue steroid wean -Continue with bronchodilators Chronic hypoxic respiratory failure -Continue with oxygen therapy Severe protein calorie malnutrition -Supplementation GERD -PPI Anemia likely related to chronic malignancy -Follow CBC -Suspect hemoglobin falsely elevated secondary to dehydration. Recent upper extremity DVT - resume Eliquis once we know that there is not surgery planned. DVT prophylaxis: Lovenox Discussed with: Patient, nursing, ED physicians, family Anticipated discharge: 2-[address]: home A total of 35 minutes was spent on the care of this complex patient more than 50% of the time was spent in counseling and care coordination.
[2019-05-13] MEDS: IPRATROPIUM-ALBUTEROL 3 ML NEB INHALATION SCH (20:28)
[2019-05-13] MEDS: SYMBICORT 80-4.5 MCG INHALER INHALATION SCH (21:14)
[2019-05-13] MEDS: VANCOMYCIN 1,500 MG in SODIUM CHLORIDE 0.9% 250 ML IVPB SCH (21:25)
[2019-05-13] MEDS: guaiFENesin 600 MG TABLET.ER PO SCH (21:25)
[2019-05-13] MEDS: NYSTATIN 100,000 UNIT/ML SUSP 500,000 UNIT/5 ML CUP PO SCH (21:26)
[2019-05-13] MEDS: AMPICILLIN-SULBACTAM 3 GM in SODIUM CHLORIDE 0.9% 100 ML IVPB SCH (23:42)
[2019-05-13] MEDS: HYDROmorphone 0.5 MG/0.5 ML SYRINGE IVP PRN (23:43)
[2019-05-14] MEDS: CLINDAMYCIN 600 MG in DEXTROSE 5% IN WATER 50 ML IVPB SCH ×4 (02:31→17:05)
[2019-05-14] MEDS: HYDROmorphone 0.5 MG/0.5 ML SYRINGE IVP PRN ×4 (02:40→21:13)
[2019-05-14] MEDS: SODIUM CHLORIDE 0.9% 1,000 ML IV SCH ×2 (05:16→12:46)
[2019-05-14] MEDS: AMPICILLIN-SULBACTAM 3 GM in SODIUM CHLORIDE 0.9% 100 ML IVPB SCH (05:25)
[2019-05-14] MEDS: VANCOMYCIN 1,500 MG in SODIUM CHLORIDE 0.9% 250 ML IVPB SCH ×2 (05:25→16:48)
[2019-05-14 06:24] LABS: HCT 34.4 % (39.0-53.0); HGB 11.2 gm/dL (13.0-17.5); Hypochromasia Slight; MCH 30.6 pg (25.0-35.0); MCHC 32.5 g/dL (31.0-37.0); MCV 94.2 fL (80.0-100.0); Mean Platelet Volume 7.1; Platelet Count 226 k/uL (150-450); RBC 3.65 m/uL (4.30-5.90); WBC 14.6 k/uL (3.8-10.6)
[2019-05-14 06:35] LABS: African American GFR (CKD) >90 (>60 ml/min/1.73 sqM); Anion Gap 6 mmol/L; Blood Urea Nitrogen 17 mg/dL (9-20); Calcium 8.1 mg/dL (8.4-10.2); Carbon Dioxide 25 mmol/L (22-30); Chloride 101 mmol/L (98-107); Glucose 156 mg/dL (74-99); Magnesium 1.7 mg/dL (1.6-2.3); Non-African American GFR(CKD) >90 (>60 ml/min/1.73 sqM); Phosphorus 3.2 mg/dL (2.5-4.5); Potassium 4.1 mmol/L (3.5-5.1); Sodium 132 mmol/L (137-145)
[2019-05-14] MEDS ORDERED: PANTOPRAZOLE 40 MG TABLET PO SCH (07:30)
[2019-05-14] MEDS ORDERED: predniSONE 20 MG TAB PO SCH (09:00)
[2019-05-14] MEDS ORDERED: NICOTINE 21MG/24HR PATCH TRANSDERM SCH (09:00)
[2019-05-14] MEDS ORDERED: ENOXAPARIN 40 MG/0.4 ML SYRINGE SQ SCH (09:00)
[2019-05-14] MEDS ORDERED: SERTRALINE 50 MG TAB PO SCH (09:00)
[2019-05-14] MEDS ORDERED: FOLIC ACID 1 MG TAB PO SCH (09:00)
[2019-05-14] MEDS: IPRATROPIUM-ALBUTEROL 3 ML NEB INHALATION SCH ×4 (09:09→21:19)
[2019-05-14] MEDS: SYMBICORT 80-4.5 MCG INHALER INHALATION SCH ×2 (09:10→21:19)
--- NOTE | 2019-05-14 09:10 | P.CONS ---
History of Present Illness - Reason for Consult Consult date: 05/14/19 perirectal infection - History of Present Illness This is a 58-year-old male with past medical history of stage IV non- small cell lung cancer with recent hospitalization from 05/08 through 05/11 secondary to worsening shortness of breath. During that hospital stay he was found to have growth of his lung tumor with compromise of the vascular flow to the left side of the lung. He was started on urgent radiation and has received 1 treatment. He went to receive his second treatment today but secondary to his rectal pain and concern for abscess. Patient has multiple other complaints including left-sided chest pain, neck pain. He had urinary retention during the night of the catheter was placed. He complains of a mass that was present in his left groin which is improved now. He complains of continued rectal pain and large swollen area at the rectum. He states that this is not improved after I&D. He states he has had fevers and chills. Patient verbalizes that he is very unhappy with his care. Attempted to reassure him that everything will be done to make him feel better. Patient verbalizes that he only has 2 months to live and it seems that his frustration is related to this as well. Patient presented to [facility] emergency center. He was found to be afebrile, white count 18, lactic acid 2.7. CAT scan of the abdomen and pelvis revealed free air with increased density within the perineal region compatible with infection or fistula formation. No underlying abscess identified. I&D was done in the emergency center with drainage of approximately 2 mL of purulent Terrio and culture was obtained. Blood culture was also obtained. patient is currently on Unasyn, clindamycin and vancomycin. Review of Systems Constitutional: Reports chills, Reports fatigue, Reports fever, Reports poor appetite, Reports weakness Eyes: denies blurred vision, denies pain Ears, nose, mouth and throat: Reports vertigo, Denies mouth pain, Denies nasal congestion Cardiovascular: Reports chest pain, Reports dyspnea on exertion, Reports edema, Reports leg edema, Reports lightheadedness, Reports shortness of breath, Denies syncope Respiratory: Reports dyspnea, Reports home oxygen (4L), Denies cough Gastrointestinal: Reports loss of appetite, Denies abdominal pain, Denies diarrhea, Denies nausea, Denies vomiting Genitourinary: Reports urinary retention, Denies dysuria Musculoskeletal: Reports muscle weakness, Denies frequent falls, Denies myalgias Integumentary: Reports wounds, Denies pruritus, Denies rash Neurological: Denies change in mentation, Denies change in speech, Denies numbness, Denies weakness Psychiatric: Denies anxiety, Denies depression Past Medical History Past Medical History: Cancer, COPD, Pneumonia Additional Past Medical History / Comment(s): Pt states he was originally 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 History of Any Multi-Drug Resistant Organisms: None Reported Past Surgical History: Appendectomy, Orthopedic Surgery Additional Past Surgical History / Comment(s): L lung biosy/bronchoscopy with bx, L index/thumb tendon repair, R middle finger tendon repair. Past Anesthesia/Blood Transfusion Reactions: No Reported Reaction Past Psychological History: Depression Smoking Status: Current every day smoker Past Alcohol Use History: Occasional Past Drug Use History: Unable to Obtain - Past Family History Mother Family Medical History: Cancer Additional Family Medical History / Comment(s): Cervical cancer Father Family Medical History: COPD Medications and Allergies Home Medications Medication Instructions Recorded Confirmed Type Albuterol Inhaler [Ventolin Hfa 2 puff INHALATION RT-Q6H PRN 03/18/19 05/13/19 History Inhaler] Sertraline [Zoloft] 50 mg PO DAILY #30 tab 03/25/19 05/13/19 Rx ALPRAZolam [Xanax] 0.5 mg PO TID PRN #21 tablet 05/11/19 05/13/19 Rx Azithromycin [Zithromax] 500 mg PO DAILY #3 tab 05/11/19 05/13/19 Rx Benzonatate [Tessalon Perles] 100 mg PO TID PRN #90 cap 05/11/19 05/13/19 Rx Fluticasone/Vilanterol [Breo 1 puff INHALATION RT-BID #1 device 05/11/19 05/13/19 Rx Ellipta 100-25 Mcg Inhaler] Folic Acid 1 mg PO DAILY #30 tab 05/11/19 05/13/19 Rx Ipratropium-Albuterol Nebulize 3 ml INHALATION RT-QID #120 05/11/19 05/13/19 Rx [Duoneb 0.5 mg-3 mg/3 ml Soln] ampul.neb Nicotine 21Mg/24Hr Patch [Habitrol] 1 patch TRANSDERM DAILY #14 patch 05/11/19 05/13/19 Rx Nystatin 100,000 Unit/ml Susp 5 ml PO QID 14 Days #1 bottle 05/11/19 05/13/19 Rx [Mycostatin Oral Susp] Pantoprazole [Protonix] 40 mg PO AC-BRKFST #30 tablet.dr 05/11/19 05/13/19 Rx guaiFENesin [Mucinex] 600 mg PO Q12HR #60 tablet.er 05/11/19 05/13/19 Rx oxyCODONE HCL [oxyCODONE HCL (IR)] 15 mg PO Q6H PRN #28 tab 05/11/19 05/13/19 Rx predniSONE 40 mg PO DAILY #10 tab 05/11/19 05/13/19 Rx Apixaban [Eliquis] 5 mg PO BID 05/13/19 05/13/19 History Allergies Allergy/AdvReac Type Severity Reaction Status Date / Time metronidazole [From Flagyl] Allergy Swelling Verified 05/08/19 11:10 morphine AdvReac CASTANEDA Verified 05/08/19 11:14 Physical Exam Vitals: Vital Signs Temp Pulse Pulse Resp BP BP Pulse Ox 05/14/19 05:28 98.1 F 73 16 90/51 95 05/13/19 23:38 98.1 F 86 22 98/54 05/13/19 21:33 97.9 F 92 22 101/58 98 05/13/19 20:39 89 05/13/19 20:35 98.7 F 87 18 117/65 96 05/13/19 20:28 83 05/13/19 19:00 85 18 104/65 98 05/13/19 18:00 82 18 117/63 98 05/13/19 17:00 98.3 F 78 18 97/51 99 05/13/19 15:59 84 18 108/51 98 05/13/19 14:05 85 20 100/57 95 12/09/19 13:10 86 20 86/51 100 05/13/19 12:36 97.5 F L 115 H 19 74/48 98 Intake and Output 05/13/19 05/14/19 05/14/19 22:59 06:59 14:59 Intake Total 100 940 Output Total 700 600 Balance -600 340 Intake: Intake, IV Titration 100 790 Amount Clindamycin 600 mg In 50 Dextrose 5% in Water 50 ml @ 50 mls/hr IVPB ONCE STA Rx#:[id number] Clindamycin 600 mg In 50 Dextrose 5% in Water 50 ml @ 50 mls/hr IVPB Q8H [facility] Rx#:[id number] Piperacillin-Tazobactam 3 100 .375 gm In Sodium Chloride 0.9% 100 ml @ 200 mls/hr IVPB ONCE STA Rx#:[id number] Sodium Chloride 0.9% 1, 440 000 ml @ 130 mls/hr IV . [id number] [facility] Rx#:[id number] Vancomycin 1,500 mg In 250 Sodium Chloride 0.9% 250 ml @ 125 mls/hr IVPB ONCE STA Rx#:[id number] Oral 150 Output: Urine 700 600 Uretheral (Zapien) 700 Other: Voiding Method Indwelling Catheter Indwelling Catheter Weight 78.925 kg 82.7 kg Gen: This is a 58-year-old male. Patient is sitting up on the abdomen bed. He appears to be in no respiratory distress. He is quite angry and verbalizes multiple frustrations/concerns. HEENT: Head is atraumatic, normocephalic. Pupils equal, round. Sclerae is anicteric. Oral mucous membranes are dry. NECK: Supple. No JVD. No lymphadenopathy. No thyromegaly. LUNGS: Expiratory wheeze throughout, coarse breath sounds and rhonchi. No accessory muscle usage. No intercostal retractions. HEART: Regular rate and rhythm. No murmur. ABDOMEN: Soft. Bowel sounds are present. No masses. No tenderness. Left inguinal area is soft. No abscess noted. Left buttocks is firm to the touch, wound perirectal area with surrounding erythema, serous drainage EXTREMITIES: Trace bilateral pedal edema. No calf tenderness. NEUROLOGICAL: Patient is awake, alert and oriented x3. Cranial nerves 2 through 12 are grossly intact. Results Results: Laboratory Results WBC 14.6 k/uL (3.8-10.6) H 05/14/19 06:05 RBC 3.65 m/uL (4.30-5.90) L 05/14/19 06:05 Hgb 11.2 gm/dL (13.0-17.5) L 05/14/19 06:05 Hct 34.4 % (39.0-53.0) L 05/14/19 06:05 MCV 94.2 fL (80.0-100.0) 05/14/19 06:05 MCH 30.6 pg (25.0-35.0) 05/14/19 06:05 MCHC 32.5 g/dL (31.0-37.0) 05/14/19 06:05 RDW 14.0 % (11.5-15.5) 05/14/19 06:05 Plt Count 226 k/uL (150-450) 05/14/19 06:05 Neutrophils % 94 % 05/13/19 13:31 Lymphocytes % 2 % 05/13/19 13:31 Monocytes % 2 % 05/13/19 13:31 Eosinophils % 1 % 05/13/19 13:31 Basophils % 0 % 05/13/19 13:31 Neutrophils # 17.0 k/uL (1.3-7.7) H 05/13/19 13:31 Lymphocytes # 0.4 k/uL (1.0-4.8) L 05/13/19 13:31 Monocytes # 0.3 k/uL (0-1.0) 05/13/19 13:31 Eosinophils # 0.2 k/uL (0-0.7) 05/13/19 13:31 Basophils # 0.0 k/uL (0-0.2) 05/13/19 13:31 Hypochromasia Slight 05/14/19 06:05 PT 10.7 sec (9.0-12.0) 05/13/19 13:31 INR 1.0 (<1.2) 05/13/19 13:31 APTT 26.4 sec (22.0-30.0) 05/13/19 13:31 Sodium 132 mmol/L (137-145) L 05/14/19 06:05 Potassium 4.1 mmol/L (3.5-5.1) 05/14/19 06:05 Chloride 101 mmol/L (98-107) 05/14/19 06:05 Carbon Dioxide 25 mmol/L (22-30) 05/14/19 06:05 Anion Gap 6 mmol/L 05/14/19 06:05 BUN 17 mg/dL (9-20) 05/14/19 06:05 Creatinine 0.73 mg/dL (0.66-1.25) 05/14/19 06:05 Est GFR (CKD-EPI)AfAm >90 (>60 ml/min/1.73 sqM) 05/14/19 06:05 Est GFR (CKD-EPI)NonAf >90 (>60 ml/min/1.73 sqM) 05/14/19 06:05 Glucose 156 mg/dL (74-99) H 05/14/19 06:05 Lactic Ac Sepsis Rflx Y 05/13/19 14:12 Plasma Lactic Acid Kennedy 1.9 mmol/L (0.7-2.0) 05/13/19 17:36 Calcium 8.1 mg/dL (8.4-10.2) L 05/14/19 06:05 Phosphorus 3.2 mg/dL (2.5-4.5) 05/14/19 06:05 Magnesium 1.7 mg/dL (1.6-2.3) 05/14/19 06:05 Total Bilirubin 1.0 mg/dL (0.2-1.3) 05/13/19 13:31 AST 20 U/L (17-59) 05/13/19 13:31 ALT 42 U/L (21-72) 05/13/19 13:31 Alkaline Phosphatase 89 U/L (38-126) 05/13/19 13:31 Total Protein 6.3 g/dL (6.3-8.2) 05/13/19 13:31 Albumin 3.7 g/dL (3.5-5.0) 05/13/19 13:31 CBC & Chem 7: 05/14/19 06:05 05/14/19 06:05 Labs: Abnormal Lab Results - Last 24 Hours (Table) 05/13/19 05/13/19 05/13/19 Range/Units 13:31 13:31 13:31 WBC 18.0 H (3.8-10.6) k/uL RBC 4.26 L (4.30-5.90) m/uL Hgb (13.0-17.5) gm/dL Hct (39.0-53.0) % Neutrophils # 17.0 H (1.3-7.7) k/uL Lymphocytes # 0.4 L (1.0-4.8) k/uL Sodium (137-145) mmol/L Carbon Dioxide 31 H (22-30) mmol/L BUN 25 H (9-20) mg/dL Glucose 225 H (74-99) mg/dL Plasma Lactic Acid Kennedy 2.7 H* (0.7-2.0) mmol/L Calcium (8.4-10.2) mg/dL 05/14/19 05/14/19 Range/Units 06:05 06:05 WBC 14.6 H (3.8-10.6) k/uL RBC 3.65 L (4.30-5.90) m/uL Hgb 11.2 L (13.0-17.5) gm/dL Hct 34.4 L (39.0-53.0) % Neutrophils # (1.3-7.7) k/uL Lymphocytes # (1.0-4.8) k/uL Sodium 132 L (137-145) mmol/L Carbon Dioxide (22-30) mmol/L BUN (9-20) mg/dL Glucose 156 H (74-99) mg/dL Plasma Lactic Acid Kennedy (0.7-2.0) mmol/L Calcium 8.1 L (8.4-10.2) mg/dL Microbiology - Last 24 Hours (Table) 05/13/19 16:25 Gram Stain - Preliminary Buttock Wound Culture - Preliminary Assessment and Plan Plan: This is a 58-year-old male with underlying history of stage IV non- small cell lung cancer currently on radiation therapy due to growth of lung tumor compromising vascular flow to the left side of the lung. Patient presents with a cellulitis abscess possible fistula formation at the rectum. He is currently on Unasyn and clindamycin and vancomycin which will be streamlined to Zosyn and vancomycin. Dr. Menard is on consult. Patient may require further rectal evaluation for fistula. Wound culture and blood culture are in progress. Continue supportive care. Further recommendations as patient regresses. The above dictated assessment and findings were discussed with Dr. Thompson. The impression and plan of care have been directed as dictated. Jeannette Ramon nurse practitioner acting as scribe for Dr. Thompson.
[2019-05-14] MEDS: NYSTATIN 100,000 UNIT/ML SUSP 500,000 UNIT/5 ML CUP PO SCH ×3 (09:13→17:05)
[2019-05-14] MEDS: guaiFENesin 600 MG TABLET.ER PO SCH (09:13)
[2019-05-14 09:44] VITALS: BMI 27.7
--- NOTE | 2019-05-14 12:33 | P.PN ---
Subjective Progress Note Date: 05/14/19 Principal diagnosis: Rectal abscess Patient was seen and examined. No acute events overnight. Patient reports generalized pain, states currently uncontrolled. Rectal abscess cultures are still pending. Patient requesting no changes in CODE STATUS at this time. He would like to discuss palliative and hospice options. Social work and case management on board to work with insurance. He denies any chest pain or palpitations. No nausea or vomiting. No fever or chills. He does complain of shortness of breath, unchanged, related to lung cancer. Objective - Vital Signs Vital signs: Vital Signs Temp 98.6 F 05/14/19 08:20 Pulse 92 05/14/19 09:23 Resp 18 05/14/19 08:20 BP 95/54 05/14/19 08:20 Pulse Ox 94 L 05/14/19 08:20 Intake & Output 05/13/19 05/14/19 05/14/19 18:59 06:59 18:59 Intake Total 100 940 Output Total 700 600 Balance -600 340 Weight 78.925 kg 82.7 kg 82.7 kg Intake: Intake, IV Titration 100 790 Amount Clindamycin 600 mg In 50 Dextrose 5% in Water 50 ml @ 50 mls/hr IVPB ONCE STA Rx#:[id number] Clindamycin 600 mg In 50 Dextrose 5% in Water 50 ml @ 50 mls/hr IVPB Q8H [facility] Rx#:[id number] Piperacillin-Tazobactam 3 100 .375 gm In Sodium Chloride 0.9% 100 ml @ 200 mls/hr IVPB ONCE STA Rx#:[id number] Sodium Chloride 0.9% 1, 440 000 ml @ 130 mls/hr IV . Q7H42M [facility] Rx#:[id number] Vancomycin 1,500 mg In 250 Sodium Chloride 0.9% 250 ml @ 125 mls/hr IVPB ONCE STA Rx#:[id number] Oral 150 Output: Urine 700 600 Uretheral (Zapien) 700 Other: Voiding Method Indwelling Catheter Indwelling Catheter - Exam General: [non toxic], [mild distress], [appears at stated age] Derm: [warm], [dry], [rectal induration with minimal erythema, no drainage] Head: [atraumatic], [normocephalic], [symmetric] Eyes: [EOMI], [no lid lag], [anicteric sclera] Mouth: [no lip lesion], [mucus membranes moist] Cardiovascular: [S1S2 reg], [no murmur], [positive posterior tibial pulse bilateral], Lungs: [Coarse breath sounds bilateral], [no rhonchi, no rales] , [no accessory muscle use] Abdominal: [soft], [ nontender to palpation], [no guarding], [no appreciable organomegaly] Ext: [no gross muscle atrophy], [no edema], [no contractures] Neuro: [no focal neuro deficits] Psych: [Alert], [oriented], [appropriate affect] - Labs CBC & Chem 7: 05/14/19 06:05 05/14/19 06:05 Labs: Abnormal Lab Results - Last 24 Hours (Table) 05/13/19 05/13/19 05/13/19 Range/Units 13:31 13:31 13:31 WBC 18.0 H (3.8-10.6) k/uL RBC 4.26 L (4.30-5.90) m/uL Hgb (13.0-17.5) gm/dL Hct (39.0-53.0) % Neutrophils # 17.0 H (1.3-7.7) k/uL Lymphocytes # 0.4 L (1.0-4.8) k/uL Sodium (137-145) mmol/L Carbon Dioxide 31 H (22-30) mmol/L BUN 25 H (9-20) mg/dL Glucose 225 H (74-99) mg/dL Plasma Lactic Acid Kennedy 2.7 H* (0.7-2.0) mmol/L Calcium (8.4-10.2) mg/dL 05/14/19 05/14/19 Range/Units 06:05 06:05 WBC 14.6 H (3.8-10.6) k/uL RBC 3.65 L (4.30-5.90) m/uL Hgb 11.2 L (13.0-17.5) gm/dL Hct 34.4 L (39.0-53.0) % Neutrophils # (1.3-7.7) k/uL Lymphocytes # (1.0-4.8) k/uL Sodium 132 L (137-145) mmol/L Carbon Dioxide (22-30) mmol/L BUN (9-20) mg/dL Glucose 156 H (74-99) mg/dL Plasma Lactic Acid Kennedy (0.7-2.0) mmol/L Calcium 8.1 L (8.4-10.2) mg/dL Microbiology - Last 24 Hours (Table) 05/13/19 16:25 Gram Stain - Preliminary Buttock Wound Culture - Preliminary Assessment and Plan Assessment: Assessment and Plan Perirectal cellulitis with possible fistula formation Sepsis due to above Stage IV non-small cell lung cancer Tobacco abuse COPD with chronic hypoxic respiratory failure Severe protein calorie malnutrition Anemia likely related to chronic malignancy Upper extremity DVT Resolved: Lactic acidosis Status post I&D and ED. Leukocytosis from 18-14.6. Lactic acid 2.7 to within normal limits. Plans: Continue vancomycin and Zosyn IV. Continue normal saline at 130 mL/h. Follow wound and blood culture. Follow ID consultation. Follow surgery recommendations. Plans: Management as above. Patient states he would like to be full code at this time. Currently receiving radiation with plans for chemotherapy in the future. Discharged with palliative care previously. States he is not ready for hospice at this time. Plans: Follow oncology recommendations. Pain management with Dilaudid, oxycodone as needed for severe pain. Plans: Nicotine replacement. Plans: DuoNeb scheduled 4 times a day. Albuterol neb as needed for shortness of breath and wheezing. Continue Mucinex. O2 per NC to maintain O2 saturation greater than 92%. BMI 27.7. Plans: Ensure supplementation. Hemoglobin 11.2. Likely dilutional. Plans: Continue to monitor. Plans: Resume Eliquis once cleared by general surgery. [Patient unable to tolerate radiation. Discussed with oncology, plans for chemotherapy once discharge if strong enough. Already has palliative care set up at home. Infection resolving. Likely DC in 2-3 days.
[2019-05-14] MEDS: PIPERACILLIN-TAZOBACTAM 3.375 GM in SODIUM CHLORIDE 0.9% 100 ML IVPB SCH ×2 (12:45→18:36)
--- NOTE | 2019-05-14 13:04 | CDI ---
Documentation Clarification Form Date: 05/14/2019 12:55:19 PM From: Jewels Sepulveda RN CCDS Admit Date: 05/13/2019 4:15:00 PM Patient Name: Kannan Patel Visit Number: [id number] Discharge Date: ATTENTION: The Clinical Documentation Specialists (CDI) and [facility] Coding Staff appreciate your assistance in clarifying documentation. Please respond to the clarification below the line at the bottom and electronically sign. The CDI & [facility] Coding staff will review the response and follow-up if needed. Please note: Queries are made part of the Legal Health Record. If you have any questions, please contact the author of this message via ITS. Dr. Peterson Eisenberg Elevated lactic acid is documented in the H & P Past medical history/Risk Factors: 58-year-old male presents to the ED with rectal pain and swelling and urinary retention. 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 * Lactic Acidosis * Metabolic Acidosis * Unable to determine * Other, please specify (Last Revision: March 2017) lactic acidosis MTDD
--- NOTE | 2019-05-14 14:58 | P.PN ---
Progress Note - Text Progress Note Date: 05/14/19 Full surgical consult to follow. Patient examined at the bedside with Dr. Menard. No surgical intervention recommended at this time. Continue IV antibiotics. Wound will be re-assessed tomorrow to determine if I&D is required. Will make patient NPO at midnight in case of need for surgical intervention tomorrow
--- NOTE | 2019-05-14 16:52 | P.CONS ---
History of Present Illness - Reason for Consult Consult date: 05/14/19 Metastatic NSCLC Requesting physician: Tawana Grove - Chief Complaint Gluteal pain - History of Present Illness Malignancy history: Initially seen Mar 2019, pt brought to hospital by sister, concerned about progressive health decline. Last year ago he was told he had a mass in his lung, most likely lung cancer, pt opted to not follow-up. Has lost > 100 pounds. Pt had progressive upper extremity congestion, pain and swelling and a new "lump" in his left groin. CTA of the chest revealed a 4.5 cm left upper lobe cavitating mass, mediastinal mass encasing the great vessels in the trachea, Doppler of the left upper extremity showed DVT in the left IJ, subclavian, axillary, cephalic and basilic veins, doppler of the LLE showed no DVT but, there was a hypoechoic mass measuring 3.2 x 4.2 x 1.3 cm in lt groin. CT AP showed a small density in the tail of the pancreas, the left groin lymph node was also seen, no other concerning areas discussed. 03/19 MRI brain showed 1.9cm lt parietal lesion with vasogenic edema. 03/22 transbronchial biopsy path poorly differentiated NSCLC, NGS-KRAS mutation, no other mutations, not enough specimen for PD-L1 testing. He completed radiation to brain lesion almost 2 weeks. Pt admitted last week for COPD exacerbation/MILLICENT/orthopnea. He was going to do palliative XRT to the chest mass but he could not lay flat. He was treated with supportive meds and fluids with improvement in his symptoms, he did get a hospital bed, O2 and palliative care consult. He was only home for about 48 hours when he noted significant pain in the buttocks, this was progressive, radiating to the perineal area and right groin, he is admitted for the same, on abx. CT showing free air. Surgery consulted. Review of Systems 14 point ROS is negative except as stated in HPI Past Medical History Past Medical History: Cancer, COPD, Pneumonia Additional Past Medical History / Comment(s): Pt states he was originally told of lung and vocal cord cancer while living in [place] and relocated in [place] to be near family and establish health care, admitted to [facility] on 03/19/19 with mediastinal mass with brain mets/vasogenic edema and had L upper extremity DVT/anemia and cachexia, s/p radiation of his brain and is currently waiting for insurance clearance for chemotherapy,vertigo when first standing. History of Any Multi-Drug Resistant Organisms: None Reported Past Surgical History: Appendectomy, Orthopedic Surgery Additional Past Surgical History / Comment(s): L lung biosy/bronchoscopy with bx, L index/thumb tendon repair, R middle finger tendon repair. Past Anesthesia/Blood Transfusion Reactions: No Reported Reaction Past Psychological History: Depression Smoking Status: Current every day smoker Past Alcohol Use History: Occasional Past Drug Use History: Unable to Obtain - Past Family History Mother Family Medical History: Cancer Additional Family Medical History / Comment(s): Cervical cancer Father Family Medical History: COPD Medications and Allergies Home Medications Medication Instructions Recorded Confirmed Type Albuterol Inhaler [Ventolin Hfa 2 puff INHALATION RT-Q6H PRN 03/18/19 05/13/19 History Inhaler] Sertraline [Zoloft] 50 mg PO DAILY #30 tab 03/25/19 05/13/19 Rx ALPRAZolam [Xanax] 0.5 mg PO TID PRN #21 tablet 05/11/19 05/13/19 Rx Azithromycin [Zithromax] 500 mg PO DAILY #3 tab 05/11/19 05/13/19 Rx Benzonatate [Tessalon Perles] 100 mg PO TID PRN #90 cap 05/11/19 05/13/19 Rx Fluticasone/Vilanterol [Breo 1 puff INHALATION RT-BID #1 device 05/11/19 05/13/19 Rx Ellipta 100-25 Mcg Inhaler] Folic Acid 1 mg PO DAILY #30 tab 05/11/19 05/13/19 Rx Ipratropium-Albuterol Nebulize 3 ml INHALATION RT-QID #120 05/11/19 05/13/19 Rx [Duoneb 0.5 mg-3 mg/3 ml Soln] ampul.neb Nicotine 21Mg/24Hr Patch [Habitrol] 1 patch TRANSDERM DAILY #14 patch 05/11/19 05/13/19 Rx Nystatin 100,000 Unit/ml Susp 5 ml PO QID 14 Days #1 bottle 05/11/19 05/13/19 Rx [Mycostatin Oral Susp] Pantoprazole [Protonix] 40 mg PO AC-BRKFST #30 tablet. 05/11/19 05/13/19 Rx guaiFENesin [Mucinex] 600 mg PO Q12HR #60 tablet.er 05/11/19 05/13/19 Rx oxyCODONE HCL [oxyCODONE HCL (IR)] 15 mg PO Q6H PRN #28 tab 05/11/19 05/13/19 Rx predniSONE 40 mg PO DAILY #10 tab 05/11/19 05/13/19 Rx Apixaban [Eliquis] 5 mg PO BID 05/13/19 05/13/19 History Allergies Allergy/AdvReac Type Severity Reaction Status Date / Time metronidazole [From Flagyl] Allergy Swelling Verified 05/08/19 11:10 morphine AdvReac CASTANEDA Verified 05/08/19 11:14 Physical Exam Vitals: Vital Signs Temp Pulse Pulse Resp BP BP Pulse Ox 05/14/19 16:24 75 05/14/19 16:18 98 05/14/19 16:15 75 05/14/19 13:02 92 05/14/19 12:48 92 05/14/19 12:00 84 18 98/55 99 05/14/19 09:23 92 05/14/19 09:10 88 05/14/19 08:20 98.6 F 83 18 95/54 94 L 05/14/19 05:28 98.1 F 73 16 90/51 95 05/13/19 23:38 98.1 F 86 22 98/54 05/13/19 21:33 97.9 F 92 22 101/58 98 05/13/19 20:39 89 05/13/19 20:35 98.7 F 87 18 117/65 96 05/13/19 20:28 83 05/13/19 19:00 85 18 104/65 98 05/13/19 18:00 82 18 117/63 98 05/13/19 17:00 98.3 F 78 18 97/51 99 Intake and Output 05/14/19 05/14/19 05/14/19 06:59 14:59 22:59 Intake Total 940 Output Total 600 Balance 340 Intake: Intake, IV Titration 790 Amount Clindamycin 600 mg In 50 Dextrose 5% in Water 50 ml @ 50 mls/hr IVPB ONCE STA Rx#:[id number] Clindamycin 600 mg In 50 Dextrose 5% in Water 50 ml @ 50 mls/hr IVPB Q8H [facility] Rx#:[id number] Sodium Chloride 0.9% 1, 440 000 ml @ 130 mls/hr IV . Q7H42M [facility] Rx#:[id number] Vancomycin 1,500 mg In 250 Sodium Chloride 0.9% 250 ml @ 125 mls/hr IVPB ONCE STA Rx#:[id number] Oral 150 Output: Urine 600 Other: Voiding Method Indwelling Catheter Indwelling Catheter # Voids 3 Weight 82.7 kg 82.7 kg - Constitutional General appearance: average body habitus, cooperative, mild distress - EENT Eyes: anicteric sclerae, EOMI, poor dentition ENT: hearing grossly normal, normal oropharynx - Neck Neck: no lymphadenopathy - Respiratory Respiratory: bilateral: diminished, wheezing (expiratory) - Cardiovascular mild tachycardia Heart sounds: normal: S1, S2 Abnormal Heart Sounds: no systolic murmur, no diastolic murmur, no rub, no S3 Gallop, no S4 Gallop, no click, no other leg Peripheral Edema: bilateral: 2+ - Gastrointestinal General gastrointestinal: no absent bowel sounds, no decreased bowel sounds, no distended, no hepatomegaly, no hyperactive bowel sounds, normal bowel sounds, no organomegaly, no rigid, no scaphoid, soft, no splenomegaly, no tenderness, no umbilical hernia, no ventral hernia - Integumentary skin of the buttocks at the gluteal fold is tender, hot to touch, indurated skin, pain radiates to the perineum and right groin - Neurologic Neurologic: CNII-XII intact - Musculoskeletal Musculoskeletal: strength equal bilaterally - Psychiatric Psychiatric: A&O x's 3, appropriate affect, intact judgment & insight Results CBC & Chem 7: 05/14/19 06:05 05/14/19 06:05 Labs: Abnormal Lab Results - Last 24 Hours (Table) 05/14/19 05/14/19 Range/Units 06:05 06:05 WBC 14.6 H (3.8-10.6) k/uL RBC 3.65 L (4.30-5.90) m/uL Hgb 11.2 L (13.0-17.5) gm/dL Hct 34.4 L (39.0-53.0) % Sodium 132 L (137-145) mmol/L Glucose 156 H (74-99) mg/dL Calcium 8.1 L (8.4-10.2) mg/dL Microbiology - Last 24 Hours (Table) 05/13/19 13:31 Blood Culture - Preliminary Blood No Growth after 24 hours 05/13/19 16:25 Gram Stain - Preliminary Buttock Wound Culture - Preliminary CT scan - abdomen: report reviewed CT scan - pelvis: report reviewed Assessment and Plan (1) Necrotizing fasciitis Narrative/Plan: Case discussed with Radiologist, Attending. Surgery consulted Current Visit: Yes Status: Acute Priority: High Code(s): M72.6 - NECROTIZING FASCIITIS SNOMED Code(s): 58267502 (2) DVT (deep venous thrombosis) Narrative/Plan: Anticipating surgery so, pt should be on either heparin drip or treatment dose lovenox. Current Visit: No Status: Acute Priority: High Code(s): I82.409 - ACUTE EMBOLISM AND THOMBOS UNSP DEEP VN UNSP LOWER EXTREMITY SNOMED Code(s): 464619264 (3) NSCLC metastatic to brain Narrative/Plan: We discussed that since pt is unable to tolerate positioning for XRT then then next best thing to do would be to start palliative chemo. The longer things are delayed the more his PS declines reducing his chances of being a good candidate for treatment. We discussed that symptoms of the disease (chest discomfort, MILLICENT) can be improved with treatment and the tumor shrinks. There are side effects of treatment to consider but, if supportive meds are used and pts are strong enough, they can have certainly more good days then bad days on chemo. We discussed the difference between palliative and hospice care. Pt had a palliative care referral when he was discharged last week. Will ensure he gets set up for the same at ID. Cannot begin any treatment until current condition is managed and treated. All questions answered to the best of my ability. They seem to understand the recommendations. Will take pt case to his Primary Oncologist and Rad Onc for discussion Current Visit: No Status: Acute Priority: High Code(s): C34.90 - MALIGNANT NEOPLASM OF UNSP PART OF UNSP BRONCHUS OR LUNG; C79.31 - SECONDARY MALIGNANT NEOPLASM OF BRAIN SNOMED Code(s): 283200284
[2019-05-14] MEDS ORDERED: ZINC OXIDE 20% OINT 28.4 GM TUBE TOPICAL PRN (17:18)
[2019-05-14 21:10] VITALS: BP 99/56; RESP 20; TEMP 97.4
[2019-05-14 21:22] VITALS: PULSE 81
--- NOTE | 2019-05-14 23:15 | P.CON ---
Consult Note - . Consult date: 05/14/19 Assessment/Plan:: This is a 58-year-old male with past medical history of stage IV non- small cell lung cancer with recent hospitalization from 05/08 through 05/11 secondary to worsening shortness of breath. During that hospital stay he was found to have growth of his lung tumor with compromise of the vascular flow to the left side of the lung. He was started on urgent radiation and has received 1 treatment. He went to receive his second treatment today but secondary to his rectal pain and concern for abscess. Patient has multiple other complaints including left-sided chest pain, neck pain. He had urinary retention during the night of the catheter was placed. He complains of a mass that was present in his left groin which is improved now. He complains of continued rectal pain and large swollen area at the rectum. He states that this is not improved after I&D. He states he has had fevers and chills. Patient verbalizes that he is very unhappy with his care. Attempted to reassure him that everything will be done to make him feel better. Patient verbalizes that he only has 2 months to live and it seems that his frustration is related to this as well. Patient presented to [facility] emergency center. He was found to be afebrile, white count 18, lactic acid 2.7. CAT scan of the abdomen and pelvis revealed free air with increased density within the perineal region compatible with infection or fistula formation. No underlying abscess identified. I&D was done in the emergency center with drainage of approximately 2 mL of purulent Terrio and culture was obtained. Blood culture was also obtained. patient is currently on Unasyn, clindamycin and vancomycin. Please see the consult note is dictated by nurse practitioner Jeannette Ramon. 58 -year-old male with his metastatic non-small cell lung carcinoma has had significant difficulties given his central nervous system metastasis in the most recent difficulty was the worsening shortness of breath thought to be due to the tumor encroachment and is now had some radiosurgery with some improvement. Overall though he is doing poorly. He has the significant worsening to the perirectal area which he is really quite miserable from. It appears to be a fistula is noted by the computed tomography scan. He has a very complex issue at this point in time with his active metastatic lung cancer. I believe he'll be transferred to a tertiary center to further evaluate the perirectal process. Although not common cancer at this site could be occurring rest second primary could be occurring. Antibiotic therapy was being utilized with Evan because of the concerns of obstructive process that is reasonable until the time of his transfer. They have discussed palliative care options with him. A plain zinc product has been ordered to be applied to the area to try to allow with some relief. I agree with evaluation, assessment and plan as dictated by nurse practitioner Mrs. Jeannette Ramon.
[2019-05-15] MEDS ORDERED: VANCOMYCIN TROUGH DUE 1 EACH MISC MISCELLANE ONE (05:00)
== END 2019-05-14 21:44 | disposition short-term general hospital (02) | DRG 871 ==
LOC: EC 12:31 → 3SCARD 16:15
PROVIDERS: ADMIT Internal Medicine; ATTEND Internal Medicine
DX: A41.9 Sepsis, unspecified organism (principal); E43 Unspecified severe protein-calorie malnutrition; M72.6 Necrotizing fasciitis; C34.90 Malignant neoplasm of unspecified part of unspecified bronchus or lung; C79.31 Secondary malignant neoplasm of brain; E87.2 Acidosis; I82.629 Acute embolism and thrombosis of deep veins of unspecified upper extremity; I82.C12 Acute embolism and thrombosis of left internal jugular vein; J96.11 Chronic respiratory failure with hypoxia; K61.1 Rectal abscess; D63.0 Anemia in neoplastic disease; Z68.27 Body mass index [BMI] 27.0-27.9, adult; F17.200 Nicotine dependence, unspecified, uncomplicated; F32.9 Major depressive disorder, single episode, unspecified; J44.9 Chronic obstructive pulmonary disease, unspecified; K21.9 Gastro-esophageal reflux disease without esophagitis; Z79.01 Long term (current) use of anticoagulants; Z79.899 Other long term (current) drug therapy; Z82.5 Family history of asthma and other chronic lower respiratory diseases; Z85.118 Personal history of other malignant neoplasm of bronchus and lung; Z85.21 Personal history of malignant neoplasm of larynx; Z86.718 Personal history of other venous thrombosis and embolism; Z86.73 Personal history of transient ischemic attack (TIA), and cerebral infarction without residual deficits; Z92.3 Personal history of irradiation; Z99.81 Dependence on supplemental oxygen; Z66 Do not resuscitate; Z88.1 Allergy status to other antibiotic agents; Z88.5 Allergy status to narcotic agent
CPT/HCPCS: 10060; 36415; 51702; 74177; 80048; 80053; 83605; 83735; 84100; 85025; 85027; 85610; 85730; 87040; 87070; 87205; 93005; 94640; 94760; 96361; 96365; 96366; 96367; 96375; 96376; 99285

== ENCOUNTER 2019-05-22 14:19 | Inpatient (IN) | payer MEDICARE, BC ==
[2019-05-22] MEDS ORDERED: SODIUM CHLORIDE 0.9% 1,000 ML IV STA (14:30)
[2019-05-22] MEDS ORDERED: IPRATROPIUM-ALBUTEROL 3 ML NEB INHALATION STA ×2 (14:30→18:26)
[2019-05-22 14:51] LABS: Basophils # (A) 0.1 k/uL (0-0.2); Basophils % (A) 3 %; Eosinophils # (A) 0.1 k/uL (0-0.7); Eosinophils % (A) 1 %; HCT 34.2 % (39.0-53.0); Hypochromasia Slight; Lymphocytes # (A) 0.4 k/uL (1.0-4.8); Lymphocytes % (A) 9 %; MCH 30.3 pg (25.0-35.0); MCHC 32.3 g/dL (31.0-37.0); Mean Platelet Volume 6.9; Monocytes # (A) 0.2 k/uL (0-1.0); Monocytes % (A) 5 %; Neutrophils # (A) 4.2 k/uL (1.3-7.7); Neutrophils % (A) 82 %; Platelet Count 204 k/uL (150-450); RBC 3.64 m/uL (4.30-5.90); RDW 14.2 % (11.5-15.5); WBC 5.1 k/uL (3.8-10.6)
[2019-05-22 15:00] LABS: ALT 48 U/L (4-49); AST 44 U/L (17-59); African American GFR (CKD) >90 (>60 ml/min/1.73 sqM); Albumin 3.3 g/dL (3.5-5.0); Alkaline Phosphatase 87 U/L (38-126); Blood Urea Nitrogen 8 mg/dL (9-20); Calcium 8.9 mg/dL (8.4-10.2); Chloride 99 mmol/L (98-107); Creatine Kinase <20 U/L (55-170); Glucose 120 mg/dL (74-99); Magnesium 2.3 mg/dL (1.6-2.3); Non-African American GFR(CKD) >90 (>60 ml/min/1.73 sqM); Potassium 3.6 mmol/L (3.5-5.1); Sodium 140 mmol/L (137-145); Total Bilirubin 0.5 mg/dL (0.2-1.3); Total Protein 6.1 g/dL (6.3-8.2)
[2019-05-22 15:04] LABS: INR 0.9 (<1.2); Partial Thromboplastin Time 24.4 sec (22.0-30.0)
[2019-05-22 15:07] LABS: Anion Gap 3 mmol/L
[2019-05-22 15:10] LABS: Carbon Dioxide 38 mmol/L (22-30)
--- NOTE | 2019-05-22 15:28 | XR ---
EXAMINATION TYPE: XR chest 2V DATE OF EXAM: 05/22/2019 COMPARISON: Chest x-ray and CTA chest from 2 weeks ago. PET/CT March 30, 2019 HISTORY: History of advanced metastatic lung cancer with shortness of breath and left-sided chest mari n TECHNIQUE: Frontal and lateral views of the chest are obtained. FINDINGS: Low lung volumes with elevated left hemidiaphragm redemonstrated. Diminished inspiration c urrent study. Background chronic emphysematous change with worsening suprahilar densities correspondi ng to known neoplasm. New small bilateral pleural effusions along with mild central vascular congesti on and associated bibasilar atelectasis and/or infiltrate. Persistent cardiomegaly. Multilevel spurri ng in thoracic spine incidentally noted. IMPRESSION: Correlate for fluid overload state or CHF exacerbation as there is cardiomegaly with new small bilateral pleural effusions and central vascular congestion thought present. Cannot exclude ad vanced neoplastic progression with increasing suprahilar prominence bilaterally. Diminished inspirati on current study noted.
--- NOTE | 2019-05-22 16:42 | ED ---
SOB HPI - General Chief Complaint: Shortness of Breath Stated Complaint: MILLICENT Time Seen by Provider: 05/22/19 14:19 Source: patient, EMS, RN notes reviewed, old records reviewed Mode of arrival: EMS Limitations: no limitations - History of Present Illness Initial Comments: this is a 57-year-old male with history of metastatic lung cancer as well as a perirectal abscess for which she just was discharged from [facility] yesterday who presents today by EMS with complaints of shortness of breath. Denies any overt chest pain he currently was less responsive than usual this morning also. No reports of fevers chills sweats or chest pain. MD Complaint: shortness of breath - Related Data Home Medications Medication Instructions Recorded Confirmed Albuterol Inhaler [Ventolin Hfa 2 puff INHALATION RT-Q6H PRN 03/18/19 05/22/19 Inhaler] Apixaban [Eliquis] 5 mg PO BID 05/13/19 05/22/19 Ibuprofen [Motrin] 800 mg PO Q6H PRN 05/22/19 05/22/19 Previous Rx's Medication Instructions Recorded Sertraline [Zoloft] 50 mg PO DAILY #30 tab 03/25/19 ALPRAZolam [Xanax] 0.5 mg PO TID PRN #21 tablet 05/11/19 Fluticasone/Vilanterol [Breo 1 puff INHALATION RT-BID #1 device 05/11/19 Ellipta 100-25 Mcg Inhaler] Folic Acid 1 mg PO DAILY #30 tab 05/11/19 Ipratropium-Albuterol Nebulize 3 ml INHALATION RT-QID #120 05/11/19 [Duoneb 0.5 mg-3 mg/3 ml Soln] ampul.neb Nystatin 100,000 Unit/ml Susp 5 ml PO QID 14 Days #1 bottle 05/11/19 [Mycostatin Oral Susp] Pantoprazole [Protonix] 40 mg PO AC-BRKFST #30 tablet. 05/11/19 guaiFENesin [Mucinex] 600 mg PO Q12HR #60 tablet.er 05/11/19 oxyCODONE HCL [oxyCODONE HCL (IR)] 15 mg PO Q6H PRN #28 tab 05/11/19 Allergies Allergy/AdvReac Type Severity Reaction Status Date / Time metronidazole [From Flagyl] Allergy Swelling Verified 05/22/19 15:09 morphine AdvReac CASTANEDA Verified 05/22/19 15:09 Review of Systems ROS Statement: Those systems with pertinent positive or pertinent negative responses have been documented in the HPI. ROS Other: All systems not noted in ROS Statement are negative. 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 History of Any Multi-Drug Resistant Organisms: None Reported Past Surgical History: Appendectomy, Orthopedic Surgery Additional Past Surgical History / Comment(s): L lung biosy/bronchoscopy with bx, L index/thumb tendon repair, R middle finger tendon repair. Past Anesthesia/Blood Transfusion Reactions: No Reported Reaction Past Psychological History: Depression Smoking Status: Current every day smoker Past Alcohol Use History: Occasional Past Drug Use History: Unable to Obtain - Past Family History Mother Family Medical History: Cancer Additional Family Medical History / Comment(s): Cervical cancer Father Family Medical History: COPD General Exam - General Exam Comments Initial Comments: this is a well developed well-nourished awake alert though somewhat lethargic male Limitations: no limitations General appearance: alert, in no apparent distress Head exam: Present: atraumatic, normocephalic, normal inspection Eye exam: Present: normal appearance, PERRL, EOMI. Absent: scleral icterus, conjunctival injection, periorbital swelling ENT exam: Present: mucous membranes dry Neck exam: Present: normal inspection. Absent: tenderness, meningismus, lymph adenopathy Respiratory exam: Present: wheezes, decreased breath sounds. Absent: respiratory distress, rales, rhonchi, stridor Cardiovascular Exam: Present: regular rate, normal rhythm, normal heart sounds. Absent: systolic murmur, diastolic murmur, rubs, gallop, clicks GI/Abdominal exam: Present: soft, normal bowel sounds. Absent: distended, tenderness, guarding, rebound, rigid Extremities exam: Present: full ROM, normal capillary refill, pedal edema. Absent: tenderness, joint swelling, calf tenderness Back exam: Present: normal inspection Neurological exam: Present: alert, oriented X3, CN II-XII intact Psychiatric exam: Present: normal affect, normal mood Skin exam: Present: warm, dry, intact, normal color. Absent: rash Course Vital Signs 05/22/19 05/22/19 05/22/19 14:32 14:53 15:00 Temperature 98.5 F Pulse Rate 80 72 68 Respiratory 20 Rate Blood Pressure 147/92 O2 Sat by Pulse 98 Oximetry 05/22/19 05/22/19 05/22/19 16:07 18:46 19:30 Temperature Pulse Rate 71 78 77 Respiratory 17 22 Rate Blood Pressure 118/78 119/67 O2 Sat by Pulse 99 96 Oximetry - Reevaluation(s) Reevaluation #1: 05/22/19 20:43 Patient had minimal improvement of the initial treatment however did feel a little bit better he states. Medical Decision Making - Medical Decision Making I did discuss findings with the patient family members as well as Dr. Phoenix patient be admitted for treatment of COPD exacerbation - Lab Data Result diagrams: 05/22/19 14:35 05/22/19 14:35 Lab Results 05/22/19 05/22/19 05/22/19 Range/Units 14:35 14:35 14:35 WBC 5.1 (3.8-10.6) k/uL RBC 3.64 L (4.30-5.90) m/uL Hgb 11.0 L (13.0-17.5) gm/dL Hct 34.2 L (39.0-53.0) % MCV 94.0 (80.0-100.0) fL MCH 30.3 (25.0-35.0) pg MCHC 32.3 (31.0-37.0) g/dL RDW 14.2 (11.5-15.5) % Plt Count 204 (150-450) k/uL Neutrophils % 82 % Lymphocytes % 9 % Monocytes % 5 % Eosinophils % 1 % Basophils % 3 % Neutrophils # 4.2 (1.3-7.7) k/uL Lymphocytes # 0.4 L (1.0-4.8) k/uL Monocytes # 0.2 (0-1.0) k/uL Eosinophils # 0.1 (0-0.7) k/uL Basophils # 0.1 (0-0.2) k/uL Hypochromasia Slight PT (9.0-12.0) sec INR (<1.2) APTT (22.0-30.0) sec Sodium 140 (137-145) mmol/L Potassium 3.6 (3.5-5.1) mmol/L Chloride 99 (98-107) mmol/L Carbon Dioxide 38 H (22-30) mmol/L Anion Gap 3 mmol/L BUN 8 L (9-20) mg/dL Creatinine 0.69 (0.66-1.25) mg/dL Est GFR (CKD-EPI)AfAm >90 (>60 ml/min/1.73 sqM) Est GFR (CKD-EPI)NonAf >90 (>60 ml/min/1.73 sqM) Glucose 120 H (74-99) mg/dL Calcium 8.9 (8.4-10.2) mg/dL Magnesium 2.3 (1.6-2.3) mg/dL Total Bilirubin 0.5 (0.2-1.3) mg/dL AST 44 (17-59) U/L ALT 48 (4-49) U/L Alkaline Phosphatase 87 (38-126) U/L Creatine Kinase <20 L (55-170) U/L Troponin I (0.000-0.034) ng/mL NT-Pro-B Natriuret Pep 899 pg/mL Total Protein 6.1 L (6.3-8.2) g/dL Albumin 3.3 L (3.5-5.0) g/dL 05/22/19 05/22/19 Range/Units 14:35 14:35 WBC (3.8-10.6) k/uL RBC (4.30-5.90) m/uL Hgb (13.0-17.5) gm/dL Hct (39.0-53.0) % MCV (80.0-100.0) fL MCH (25.0-35.0) pg MCHC (31.0-37.0) g/dL RDW (11.5-15.5) % Plt Count (150-450) k/uL Neutrophils % % Lymphocytes % % Monocytes % % Eosinophils % % Basophils % % Neutrophils # (1.3-7.7) k/uL Lymphocytes # (1.0-4.8) k/uL Monocytes # (0-1.0) k/uL Eosinophils # (0-0.7) k/uL Basophils # (0-0.2) k/uL Hypochromasia PT 10.0 (9.0-12.0) sec INR 0.9 (<1.2) APTT 24.4 (22.0-30.0) sec Sodium (137-145) mmol/L Potassium (3.5-5.1) mmol/L Chloride (98-107) mmol/L Carbon Dioxide (22-30) mmol/L Anion Gap mmol/L BUN (9-20) mg/dL Creatinine (0.66-1.25) mg/dL Est GFR (CKD-EPI)AfAm (>60 ml/min/1.73 sqM) Est GFR (CKD-EPI)NonAf (>60 ml/min/1.73 sqM) Glucose (74-99) mg/dL Calcium (8.4-10.2) mg/dL Magnesium (1.6-2.3) mg/dL Total Bilirubin (0.2-1.3) mg/dL AST (17-59) U/L ALT (4-49) U/L Alkaline Phosphatase (38-126) U/L Creatine Kinase (55-170) U/L Troponin I <0.012 (0.000-0.034) ng/mL NT-Pro-B Natriuret Pep pg/mL Total Protein (6.3-8.2) g/dL Albumin (3.5-5.0) g/dL - EKG Data -: EKG Interpreted by [facility] EKG shows normal: sinus rhythm (sinus rhythm a 79. Interval 142 QRS duration 86 QT since QTC 380/444) - Radiology Data Radiology results: report reviewed ( evidence of his cancer versus mass or congestion), image reviewed Disposition Clinical Impression: Mass of left lung, Acute respiratory distress syndrome in adult, COPD exac erbation Disposition: ADMITTED IP TO [facility] Condition: Fair Referrals: Tuan Elise [Primary Care Provider] - 1-2 days
[2019-05-22] MEDS ORDERED: MORPHINE SULFATE 4 MG/ML SYRINGE IVP STA (19:04)
[2019-05-22] MEDS ORDERED: LORazepam 2 MG/ML INJ IV STA (19:18)
[2019-05-22] MEDS ORDERED: SODIUM CHLORIDE 0.9% 1,000 ML IV SCH (20:45)
[2019-05-22] MEDS ORDERED: ALPRAZolam 0.5 MG TAB PO PRN (20:46)
[2019-05-22] MEDS ORDERED: IBUPROFEN 800 MG TAB PO PRN (20:46)
[2019-05-22 22:15] VITALS: TEMP 98.6
[2019-05-22] MEDS: APIXABAN 5 MG TAB PO SCH (23:05)
[2019-05-22] MEDS: NYSTATIN 100,000 UNIT/ML SUSP 500,000 UNIT/5 ML CUP PO SCH (23:05)
[2019-05-22] MEDS: guaiFENesin 600 MG TABLET.ER PO SCH (23:05)
[2019-05-23] MEDS: IPRATROPIUM-ALBUTEROL 3 ML NEB INHALATION SCH ×3 (02:08→10:11)
[2019-05-23] MEDS: methylPREDNISolone SOD SUCCI 125 MG/2 ML VIAL IV SCH ×2 (02:10→02:16)
[2019-05-23 02:32] VITALS: BP 137/80; RESP 22
[2019-05-23] MEDS ORDERED: HALOPERIDOL 1 MG TAB PO PRN (02:39)
[2019-05-23] MEDS ORDERED: ZOLPIDEM 5 MG TAB PO PRN (02:39)
[2019-05-23] MEDS ORDERED: ACETAMINOPHEN TAB 325 MG TAB PO PRN (02:39)
[2019-05-23] MEDS ORDERED: ARTIFICIAL TEARS-HYPROMELLOSE DROPS 15 ML BTL BOTH EYES PRN (02:39)
[2019-05-23] MEDS ORDERED: DRY MOUTH SPRAY 44.3 SPRAY/44.3 ML SPRAY MUCOUS MEM PRN (02:39)
[2019-05-23] MEDS ORDERED: ONDANSETRON 4 MG/2 ML VIAL IVP PRN (02:39)
[2019-05-23] MEDS ORDERED: IBUPROFEN 400 MG TAB PO PRN (02:39)
[2019-05-23] MEDS ORDERED: HYDROcodone/APAP 5-325MG 1 EACH TAB PO PRN (02:39)
[2019-05-23] MEDS ORDERED: LORazepam 0.5 MG TAB PO PRN (02:39)
[2019-05-23] MEDS ORDERED: SCOPOLAMINE 1.5MG/72HR PATCH TRANSDERM SCH (02:45)
--- NOTE | 2019-05-23 02:54 | P.HPIM ---
History of Present Illness H&P Date: 05/23/19 Chief Complaint: progressive worsening of metabolic encephalopathy and shortness of breath 58-year-old male with metastatic poorly differentiated non-small cell lung cancer metastases to the brain and groin frequent recent hospitalization he was discharged from [facility] yesterday for perirectal abscess drains were inserted patient was discharged without antibiotics patient requested to be sent home there were plans to initiate hospice care the next day however patient resides with his sisters and today he seemed very lethargic and confused and was having some trouble breathing family got concerned and decided to bring him to the hospital for evaluation and to get him signed up for hospice care. Patient has never received chemotherapy as he was a poor candidate due to the advanced cancer taking it stolen the patient and he was never in proper shape to start the chemotherapy. He's been hospitalized multiple times over the past few weeks to months due to recurrent COPD exacerbations. Family was on board to initiate comfort care measures and sign up for hospice in the morning after they meet with our hospice team for pre-familiar with what hospice will provide them that they think at this point they agree that this is what the the patient wishes to be kept comfortable. Patient used to live out of state per family he wasn't really taking care of himself he noted that he had some kind of cancer final diagnoses was done in March 2019 patient received some radiation therapy radiation without therapy for his groin mass and brain metastases without much improvement in overall clinical condition patient is very lethargic at this time unable to provide any meaningful history Review of Systems ROS unobtainable: due to mental status Past Medical History Past Medical History: Cancer, COPD, Pneumonia Additional Past Medical History / Comment(s): Pt states he was originally 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 History of Any Multi-Drug Resistant Organisms: None Reported Past Surgical History: Appendectomy, Orthopedic Surgery Additional Past Surgical History / Comment(s): L lung biosy/bronchoscopy with bx, L index/thumb tendon repair, R middle finger tendon repair. Past Anesthesia/Blood Transfusion Reactions: No Reported Reaction Past Psychological History: Depression Smoking Status: Current every day smoker Past Alcohol Use History: Occasional Past Drug Use History: Unable to Obtain - Past Family History Mother Family Medical History: Cancer Additional Family Medical History / Comment(s): Cervical cancer Father Family Medical History: COPD Medications and Allergies Home Medications Medication Instructions Recorded Confirmed Type Albuterol Inhaler [Ventolin Hfa 2 puff INHALATION RT-Q6H PRN 03/18/19 05/22/19 History Inhaler] Sertraline [Zoloft] 50 mg PO DAILY #30 tab 03/25/19 05/22/19 Rx ALPRAZolam [Xanax] 0.5 mg PO TID PRN #21 tablet 05/11/19 05/22/19 Rx Fluticasone/Vilanterol [Breo 1 puff INHALATION RT-BID #1 device 05/11/19 05/22/19 Rx Ellipta 100-25 Mcg Inhaler] Folic Acid 1 mg PO DAILY #30 tab 05/11/19 05/22/19 Rx Ipratropium-Albuterol Nebulize 3 ml INHALATION RT-QID #120 05/11/19 05/22/19 Rx [Duoneb 0.5 mg-3 mg/3 ml Soln] ampul.neb Nystatin 100,000 Unit/ml Susp 5 ml PO QID 14 Days #1 bottle 05/11/19 05/22/19 Rx [Mycostatin Oral Susp] Pantoprazole [Protonix] 40 mg PO AC-BRKFST #30 tablet.dr 05/11/19 05/22/19 Rx guaiFENesin [Mucinex] 600 mg PO Q12HR #60 tablet.er 05/11/19 05/22/19 Rx oxyCODONE HCL [oxyCODONE HCL (IR)] 15 mg PO Q6H PRN #28 tab 05/11/19 05/22/19 Rx Apixaban [Eliquis] 5 mg PO BID 05/13/19 05/22/19 History Ibuprofen [Motrin] 800 mg PO Q6H PRN 05/22/19 05/22/19 History Allergies Allergy/AdvReac Type Severity Reaction Status Date / Time metronidazole [From Flagyl] Allergy Swelling Verified 05/22/19 15:09 morphine AdvReac CASTANEDA Verified 05/22/19 15:09 Physical Exam Vitals: Vital Signs Temp Pulse Resp BP Pulse Ox 05/23/19 01:00 79 22 137/80 98 05/23/19 00:00 78 16 136/82 97 05/22/19 22:13 98.6 F 77 20 136/82 98 05/22/19 19:30 77 22 119/67 96 05/22/19 18:46 78 05/22/19 16:07 71 17 118/78 99 05/22/19 15:00 68 05/22/19 14:53 72 05/22/19 14:32 98.5 F 80 20 147/92 98 Intake and Output 05/22/19 05/22/19 05/23/19 14:59 22:59 06:59 Other: Weight 81.647 kg limited exam due to patient mental status Patient is very lethargic, he wakes up and makes eye contact and make requests for food or pain, he stays up for couple minutes and he drifts back to sleep patient is cooperative with exam when awake he has muffled speech Lungs poor breath sounds overall expiratory wheezing Cardiovascular distant heart sounds, palpable radial pulses bilaterally Extremities bilateral leg swelling less to with raised erythematous nodules mainly over the left anterior sears Abdomen moving with respiration soft lax with palpable nodules and the groin area Neuro patient is lethargic with periods of awakening that's very brief cannot cooperate with neuro exam at this time, pupils round equal and reactive to light Psych patient is lethargic, arousable with painful and at times verbal stimulation Results CBC & Chem 7: 05/22/19 14:35 05/22/19 14:35 Labs: Abnormal Lab Results - Last 24 Hours (Table) 05/22/19 05/22/19 Range/Units 14:35 14:35 RBC 3.64 L (4.30-5.90) m/uL Hgb 11.0 L (13.0-17.5) gm/dL Hct 34.2 L (39.0-53.0) % Lymphocytes # 0.4 L (1.0-4.8) k/uL Carbon Dioxide 38 H (22-30) mmol/L BUN 8 L (9-20) mg/dL Glucose 120 H (74-99) mg/dL Creatine Kinase <20 L (55-170) U/L Total Protein 6.1 L (6.3-8.2) g/dL Albumin 3.3 L (3.5-5.0) g/dL Assessment and Plan Plan: acute metabolic encephalopathy secondary to brain metastases Stage IV poorly differentiated non-small cell lung cancer with metastases to brain and groin COPD advanced Perirectal abscess status post drainage After meeting with the patient and the family, it seems like patient and family were initiating hospice as an outpatient however patient condition deteriorated today and he was brought to the hospital for evaluation for hospice care Patient family opted in for comfort measures and to meet with hospice in the morning Comfort measures orders placed Continue the patient with pleasure fluid Pain control Breathing treatments as needed Supplemental oxygen Consult for hospice team CODE STATUS no code A total of 70 minutes was spent on the care of this complex patient more than 50 % of the time was spent in counseling and care coordination.
[2019-05-23] MEDS: MORPHINE SULFATE 2 MG/ML SYRINGE IV PRN ×5 (02:57→07:00)
[2019-05-23] MEDS ORDERED: LORazepam 1 MG TAB PO PRN (03:18)
[2019-05-23] MEDS ORDERED: LORazepam 2 MG/ML INJ IV PRN (07:20)
[2019-05-23] MEDS ORDERED: MORPHINE SULFATE (100 MG/2 ML) 100 MG in SODIUM CHLORIDE 0.9% 100 ML IV SCH (07:30)
[2019-05-23] MEDS ORDERED: PANTOPRAZOLE 40 MG TABLET PO SCH (07:30)
[2019-05-23] MEDS ORDERED: SYMBICORT 80-4.5 MCG INHALER INHALATION SCH (08:00)
[2019-05-23] MEDS: SERTRALINE 50 MG TAB PO SCH ×2 (08:49→11:46)
[2019-05-23] MEDS: DOCUSATE 100 MG CAP PO SCH ×2 (08:49→11:44)
[2019-05-23] MEDS ORDERED: FOLIC ACID 1 MG TAB PO SCH (09:00)
[2019-05-23 10:31] VITALS: PULSE 80
[2019-05-23] MEDS: APIXABAN 5 MG TAB PO SCH (11:44)
[2019-05-23] MEDS: NYSTATIN 100,000 UNIT/ML SUSP 500,000 UNIT/5 ML CUP PO SCH (11:45)
[2019-05-23] MEDS: guaiFENesin 600 MG TABLET.ER PO SCH (11:45)
--- NOTE | 2019-05-23 14:37 | P.DS ---
Providers Date of admission: 05/22/19 20:45 Expected date of discharge: 05/23/19 Attending physician: George Otriz MD Primary care physician: Tuan Elise Hospital Course: Discharge Diagnosis: 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 Intractable pain acute on chronic chest pain related to malignancy COPD Perirectal abscess Acute on chronic hypoxic respiratory failure Syncopal event Tobacco abuse GERD Severe protein calorie malnutrition Anemia likely related to chronic malignancy Hospital Course: Patient is a 68 yo CM with a past medical history of poorly differentiated non- small cell lung cancer with metastasis to brain and groin and frequent rehospitalizations. Patient had been discharged from [facility] on 05/21/19 aft er treatment for a perirectal abscess where he had Mae drains placed. The plan had initially been to start hospice care in the next day or 2 at home however he became very lethargic and was having difficulty breathing and therefore he presented to the emergency department. After long discussion he elected to sign on for hospice care and subsequently being admitted to [facility] hospice. A total of 15 minutes of time were spent preparing this complex discharge summary . Patient Condition at Discharge: Stable Plan - Discharge Summary Discharge Rx Participant: No New Discharge Prescriptions: No Action Albuterol Inhaler [Ventolin Hfa Inhaler] 2 puff INHALATION RT-Q6H PRN PRN Reason: Shortness Of Breath Sertraline [Zoloft] 50 mg PO DAILY #30 tab Ipratropium-Albuterol Nebulize [Duoneb 0.5 mg-3 mg/3 ml Soln] 3 ml INHALATION RT-QID #120 ampul.neb guaiFENesin [Mucinex] 600 mg PO Q12HR #60 tablet.er Nystatin 100,000 Unit/ml Susp [Mycostatin Oral Susp] 5 ml PO QID 14 Days #1 bottle ALPRAZolam [Xanax] 0.5 mg PO TID PRN #21 tablet PRN Reason: Anxiety Fluticasone/Vilanterol [Breo Ellipta 100-25 Mcg Inhaler] 1 puff INHALATION RT-BID #1 device Folic Acid 1 mg PO DAILY #30 tab oxyCODONE HCL [oxyCODONE HCL (IR)] 15 mg PO Q6H PRN #28 tab PRN Reason: Pain Pantoprazole [Protonix] 40 mg PO AC-BRKFST #30 tablet. Apixaban [Eliquis] 5 mg PO BID Ibuprofen [Motrin] 800 mg PO Q6H PRN PRN Reason: Pain Discharge Medication List Albuterol Inhaler [Ventolin Hfa Inhaler] 2 puff INHALATION RT-Q6H PRN 03/18/19 [History] Sertraline [Zoloft] 50 mg PO DAILY #30 tab 03/25/19 [Rx] ALPRAZolam [Xanax] 0.5 mg PO TID PRN #21 tablet 05/11/19 [Rx] Fluticasone/Vilanterol [Breo Ellipta 100-25 Mcg Inhaler] 1 puff INHALATION RT- BID #1 device 05/11/19 [Rx] Folic Acid 1 mg PO DAILY #30 tab 05/11/19 [Rx] Ipratropium-Albuterol Nebulize [Duoneb 0.5 mg-3 mg/3 ml Soln] 3 ml INHALATION RT-QID #120 ampul.neb 05/11/19 [Rx] Nystatin 100,000 Unit/ml Susp [Mycostatin Oral Susp] 5 ml PO QID 14 Days #1 bottle 05/11/19 [Rx] Pantoprazole [Protonix] 40 mg PO AC-BRKFST #30 tablet. 05/11/19 [Rx] guaiFENesin [Mucinex] 600 mg PO Q12HR #60 tablet.er 05/11/19 [Rx] oxyCODONE HCL [oxyCODONE HCL (IR)] 15 mg PO Q6H PRN #28 tab 05/11/19 [Rx] Apixaban [Eliquis] 5 mg PO BID 05/13/19 [History] Ibuprofen [Motrin] 800 mg PO Q6H PRN 05/22/19 [History] Follow up Appointment(s)/Referral(s): Tuan Elise [Primary Care Provider] - 1-2 days Discharge Disposition: DISCH TO [facility]
== END 2019-05-23 13:16 | disposition hospice, inpatient (51) | DRG 54 ==
LOC: EC 14:19 → 5NMEDONC 20:45 → 6NMEDSUR 05-23 11:32
PROVIDERS: ADMIT Internal Medicine; ATTEND Internal Medicine
DX: C79.31 Secondary malignant neoplasm of brain (principal); E43 Unspecified severe protein-calorie malnutrition; G93.41 Metabolic encephalopathy; J96.21 Acute and chronic respiratory failure with hypoxia; J44.1 Chronic obstructive pulmonary disease with (acute) exacerbation; C34.90 Malignant neoplasm of unspecified part of unspecified bronchus or lung; K61.1 Rectal abscess; C79.89 Secondary malignant neoplasm of other specified sites; D63.0 Anemia in neoplastic disease; F17.200 Nicotine dependence, unspecified, uncomplicated; F32.9 Major depressive disorder, single episode, unspecified; G89.3 Neoplasm related pain (acute) (chronic); K21.9 Gastro-esophageal reflux disease without esophagitis; R55 Syncope and collapse; Z51.5 Encounter for palliative care; Z79.01 Long term (current) use of anticoagulants; Z79.899 Other long term (current) drug therapy; Z86.718 Personal history of other venous thrombosis and embolism; Z92.3 Personal history of irradiation; Z88.1 Allergy status to other antibiotic agents; Z88.5 Allergy status to narcotic agent; Z90.49 Acquired absence of other specified parts of digestive tract; Z87.01 Personal history of pneumonia (recurrent); Z82.5 Family history of asthma and other chronic lower respiratory diseases; Z80.9 Family history of malignant neoplasm, unspecified
CPT/HCPCS: 36415; 71046; 80053; 82550; 83735; 83880; 84484; 85025; 85610; 85730; 87040; 93005; 94640; 96361; 96365; 96366; 96375; 96376; 99285

== ENCOUNTER 2019-05-23 12:07 | Inpatient (IN) | payer MEDICAID ==
[2019-05-23] MEDS ORDERED: ACETAMINOPHEN SUPPOSITORY 650 MG SUPP RECTAL PRN (13:56)
[2019-05-23] MEDS ORDERED: ONDANSETRON 4 MG/2 ML VIAL IVP PRN (13:56)
[2019-05-23] MEDS ORDERED: DRY MOUTH SPRAY 44.3 SPRAY/44.3 ML SPRAY MUCOUS MEM PRN (13:56)
[2019-05-23] MEDS ORDERED: ARTIFICIAL TEARS-HYPROMELLOSE DROPS 15 ML BTL BOTH EYES PRN (13:56)
[2019-05-23] MEDS ORDERED: ATROPINE OPHTH SOLN 1% 5ML BTL SUBLINGUAL PRN (13:56)
[2019-05-23] MEDS ORDERED: guaiFENesin SYRUP 100MG/5ML 200 MG/10 ML CUP PO PRN (13:56)
[2019-05-23] MEDS ORDERED: BISACODYL 10 MG SUPP RECTAL PRN (14:18)
--- NOTE | 2019-05-23 14:31 | P.HPIM ---
History of Present Illness H&P Date: 05/23/19 Chief Complaint: shortness of breath Patient is a 68 yo CM with a past medical history of poorly differentiated non- small cell lung cancer with metastasis to brain and groin and frequent rehospitalizations. Patient had been discharged from [facility] on 05/21/19 a fter treatment for a perirectal abscess where he had Lia drains placed. The plan had initially been to start hospice care in the next day or 2 at home however he became very lethargic and was having difficulty breathing and therefore he presented to the emergency department. After long discussion he elected to sign out for hospice care and subsequently being admitted to [facility] hospice. Patient seen and examined at bedside. He states he is much more comfortable after morphine drip has been started and he was given Ativan. He is still having some shortness of breath but no pain currently. At this point in time is very limited lethargic and is unable to fully answer questions. 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 History of Any Multi-Drug Resistant Organisms: None Reported Past Surgical History: Appendectomy, Orthopedic Surgery Additional Past Surgical History / Comment(s): L lung biosy/bronchoscopy with bx, L index/thumb tendon repair, R middle finger tendon repair. Past Anesthesia/Blood Transfusion Reactions: No Reported Reaction Past Psychological History: Depression Smoking Status: Current every day smoker Past Alcohol Use History: Occasional Past Drug Use History: Unable to Obtain - Past Family History Mother Family Medical History: Cancer Additional Family Medical History / Comment(s): Cervical cancer Father Family Medical History: COPD Medications and Allergies Home Medications Medication Instructions Recorded Confirmed Type Albuterol Inhaler [Ventolin Hfa 2 puff INHALATION RT-Q6H PRN 03/18/19 05/23/19 History Inhaler] Sertraline [Zoloft] 50 mg PO DAILY #30 tab 03/25/19 05/23/19 Rx ALPRAZolam [Xanax] 0.5 mg PO TID PRN #21 tablet 05/11/19 05/23/19 Rx Fluticasone/Vilanterol [Breo 1 puff INHALATION RT-BID #1 device 05/11/19 05/23/19 Rx Ellipta 100-25 Mcg Inhaler] Folic Acid 1 mg PO DAILY #30 tab 05/11/19 05/23/19 Rx Ipratropium-Albuterol Nebulize 3 ml INHALATION RT-QID #120 05/11/19 05/23/19 Rx [Duoneb 0.5 mg-3 mg/3 ml Soln] ampul.neb Nystatin 100,000 Unit/ml Susp 5 ml PO QID 14 Days #1 bottle 05/11/19 05/23/19 Rx [Mycostatin Oral Susp] Pantoprazole [Protonix] 40 mg PO AC-BRKFST #30 tablet.dr 05/11/19 05/23/19 Rx guaiFENesin [Mucinex] 600 mg PO Q12HR #60 tablet.er 05/11/19 05/23/19 Rx oxyCODONE HCL [oxyCODONE HCL (IR)] 15 mg PO Q6H PRN #28 tab 05/11/19 05/23/19 Rx Apixaban [Eliquis] 5 mg PO BID 05/13/19 05/23/19 History Ibuprofen [Motrin] 800 mg PO Q6H PRN 05/22/19 05/23/19 History Allergies Allergy/AdvReac Type Severity Reaction Status Date / Time metronidazole [From Flagyl] Allergy Swelling Verified 05/23/19 12:24 morphine AdvReac CASTANEDA Verified 05/23/19 12:24 Physical Exam Osteopathic Statement: *. No significant issues noted on an osteopathic structural exam other than those noted in the History and Physical/Consult. Vitals: Intake and Output 05/22/19 05/23/19 05/23/19 22:59 06:59 14:59 Other: Weight 72.7 kg General: ill appearing, no distress, appears at stated age, normal weight, temporal wasting Derm: 2 lia dranes in rectal area, no unusual ecchymoses, warm, dry Head: atraumatic, normocephalic, symmetric Eyes: EOMI, no lid lag, anicteric sclera, pupils equal round reactive to light ENT: Nose and ears atraumatic, no thrush, no pharyngeal erythema Mouth: no lip lesion, mucus membranesdry Cardiovascular: S1S2 reg, no murmur, positive posterior tibial pulse bilateral, 3+ edema, capillary refill less than 2 seconds Lungs: wheeze, decreased bs bilateral , + accessory muscle use Abdominal: soft, nontender to palpation, no guarding, no appreciable organomegaly, normal bowel sounds Ext: no gross muscle atrophy, Moving all 4 extremities independently, no contractures, Neuro: CN II-XI grossly intact, light touch intact all 4 extremities, Psych: Awake, oriented to place, flat affect Thrombosis Risk Factor Assmnt - DVT/VTE Prophylaxis DVT/VTE Prophylaxis: Low risk, early ambulation encouraged Assessment and Plan Assessment: 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 Intractable pain acute on chronic chest pain related to malignancy COPD Perirectal abscess Acute on chronic hypoxic respiratory failure Syncopal event Tobacco abuse GERD Severe protein calorie malnutrition Anemia likely related to chronic malignancy Hospice care: morphine gtt, ativan ivp, scopalamie, atropine gtt Continue to monitor for hospice care
[2019-05-23] MEDS: MORPHINE SULFATE (100 MG/2 ML) 100 MG in SODIUM CHLORIDE 0.9% 100 ML IV SCH (15:09)
[2019-05-23] MEDS ORDERED: ALBUTEROL NEBULIZED 2.5 MG/3 ML INHALATION PRN (20:24)
[2019-05-24] MEDS: LORazepam 2 MG/ML INJ IV PRN ×3 (01:19→13:40)
[2019-05-24] MEDS: ALBUTEROL NEBULIZED 2.5 MG/3 ML INHALATION SCH ×4 (07:28→20:22)
[2019-05-24 09:22] VITALS: BMI 23.6
[2019-05-24 11:36] VITALS: RESP 18
[2019-05-24] MEDS: MORPHINE SULFATE (100 MG/2 ML) 100 MG in SODIUM CHLORIDE 0.9% 100 ML IV SCH ×2 (14:06→16:57)
[2019-05-24] MEDS ORDERED: LORazepam 2 MG/ML INJ IV PRN (16:34)
--- NOTE | 2019-05-24 16:35 | P.PN ---
Subjective Progress Note Date: 05/24/19 Patient seen and examined at bedside with his both daughters present, appears pretty dyspneic, complaining of lower extremity swelling and also wanting his buttock dressings changed. Reports his pain 5 out of 10. No acute events overnight Objective - Vital Signs Vital signs: Vital Signs Temp Pulse 82 05/24/19 11:33 Resp 18 05/24/19 11:35 BP Pulse Ox 99 05/23/19 21:13 Intake & Output 05/23/19 05/24/19 05/24/19 18:59 06:59 18:59 Intake Total 116.515 977.567 Output Total 600 Balance 116.515 377.567 Weight 72.7 kg 72.7 kg Intake: Intake, IV Titration 16.515 17.567 Amount Morphine Sulfate (100 mg/ 16.515 17.567 2 ml) 100 mg In Sodium Chloride 0.9% 100 ml @ 1 MG/HR 1.02 mls/hr IV . Q24H [facility] Rx#:[id number] Oral 100 960 Output: Urine 600 Other: Voiding Method Urinal Urinal Urinal # Voids 1 2 1 # Bowel Movements 0 0 - Exam General: ill appearing, no distress, appears at stated age, normal weight, temporal wasting Derm: 2 lia dranes in rectal area, no unusual ecchymoses, warm, dry Head: atraumatic, normocephalic, symmetric Eyes: EOMI, no lid lag, anicteric sclera, pupils equal round reactive to light ENT: Nose and ears atraumatic, no thrush, no pharyngeal erythema Mouth: no lip lesion, mucus membranesdry Cardiovascular: S1S2 reg, no murmur, positive posterior tibial pulse bilateral, 3+ edema, capillary refill less than 2 seconds Lungs: wheeze, decreased bs bilateral , + accessory muscle use Abdominal: soft, nontender to palpation, no guarding, no appreciable organomegaly, normal bowel sounds Ext: no gross muscle atrophy, Moving all 4 extremities independently, no contractures, Neuro: CN II-XI grossly intact, light touch intact all 4 extremities, Psych: Awake, oriented to place, flat affect Assessment and Plan Assessment: 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
[2019-05-24] MEDS: LORazepam 2 MG/ML INJ IV SCH ×2 (16:58→20:29)
[2019-05-24 20:25] VITALS: PULSE 96
[2019-05-25] MEDS: LORazepam 2 MG/ML INJ IV SCH ×4 (00:08→12:46)
[2019-05-25] MEDS: ALBUTEROL NEBULIZED 2.5 MG/3 ML INHALATION SCH ×3 (09:12→15:51)
[2019-05-26] MEDS ORDERED: SCOPOLAMINE 1.5MG/72HR PATCH TRANSDERM SCH (03:00)
--- NOTE | 2019-05-29 16:28 | P.DS ---
Providers Date of admission: 05/23/19 12:07 Expected date of discharge: 05/24/19 Attending physician: Tawana Grove DO Primary care physician: Tuan El[facility] Course: Patient is a 68-year-old male with extensive past medical history of non-small cell lung cancer with metastasis to the brain and groin. He was recently discharged from [facility] on 05/21/2019 after treatment for perirectal abscess. He was initially started on hospice care hour became very lethargic with difficulty breathing and therefore presented to the ED. After long discussions patient elected to sign up for hospice care and was subsequently admitted to [facility] hospice. Patient was started on hospice orders including morphine for pain control. He was given antiemetics, continued on scopolamine patches and given Ativan as needed. Patient on 2018. 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 Intractable pain acute on chronic chest pain related to malignancy COPD Perirectal abscess Acute on chronic hypoxic respiratory failure Syncopal event Tobacco abuse GERD Severe protein calorie malnutrition Anemia likely related to chronic malignancy Patient Condition at Discharge: Critical Plan - Discharge Summary Discharge Rx Participant: No New Discharge Prescriptions: No Action Albuterol Inhaler [Ventolin Hfa Inhaler] 2 puff INHALATION RT-Q6H PRN PRN Reason: Shortness Of Breath Sertraline [Zoloft] 50 mg PO DAILY #30 tab Ipratropium-Albuterol Nebulize [Duoneb 0.5 mg-3 mg/3 ml Soln] 3 ml INHALATION RT-QID #120 ampul.neb guaiFENesin [Mucinex] 600 mg PO Q12HR #60 tablet.er Nystatin 100,000 Unit/ml Susp [Mycostatin Oral Susp] 5 ml PO QID 14 Days #1 bottle ALPRAZolam [Xanax] 0.5 mg PO TID PRN #21 tablet PRN Reason: Anxiety Fluticasone/Vilanterol [Breo Ellipta 100-25 Mcg Inhaler] 1 puff INHALATION RT-BID #1 device Folic Acid 1 mg PO DAILY #30 tab oxyCODONE HCL [oxyCODONE HCL (IR)] 15 mg PO Q6H PRN #28 tab PRN Reason: Pain Pantoprazole [Protonix] 40 mg PO AC-BRKFST #30 tablet.dr Apixaban [Eliquis] 5 mg PO BID Ibuprofen [Motrin] 800 mg PO Q6H PRN PRN Reason: Pain Discharge Medication List Albuterol Inhaler [Ventolin Hfa Inhaler] 2 puff INHALATION RT-Q6H PRN 03/18/19 [History] Sertraline [Zoloft] 50 mg PO DAILY #30 tab 03/25/19 [Rx] ALPRAZolam [Xanax] 0.5 mg PO TID PRN #21 tablet 05/11/19 [Rx] Fluticasone/Vilanterol [Breo Ellipta 100-25 Mcg Inhaler] 1 puff INHALATION RT- BID #1 device 05/11/19 [Rx] Folic Acid 1 mg PO DAILY #30 tab 05/11/19 [Rx] Ipratropium-Albuterol Nebulize [Duoneb 0.5 mg-3 mg/3 ml Soln] 3 ml INHALATION RT-QID #120 ampul.neb 05/11/19 [Rx] Nystatin 100,000 Unit/ml Susp [Mycostatin Oral Susp] 5 ml PO QID 14 Days #1 bottle 05/11/19 [Rx] Pantoprazole [Protonix] 40 mg PO AC-BRKFST #30 tablet. 05/11/19 [Rx] guaiFENesin [Mucinex] 600 mg PO Q12HR #60 tablet.er 05/11/19 [Rx] oxyCODONE HCL [oxyCODONE HCL (IR)] 15 mg PO Q6H PRN #28 tab 05/11/19 [Rx] Apixaban [Eliquis] 5 mg PO BID 05/13/19 [History] Ibuprofen [Motrin] 800 mg PO Q6H PRN 05/22/19 [History] Discharge Disposition: - Preliminary Cause of Preliminary Cause of : Acute hypoxic respiratory failure
== END 2019-05-25 15:25 | disposition expired | DRG 951 ==
LOC: 6NMEDSUR 12:07
PROVIDERS: ADMIT Internal Medicine; ATTEND Internal Medicine
DX: Z51.5 Encounter for palliative care (principal); E43 Unspecified severe protein-calorie malnutrition; J96.21 Acute and chronic respiratory failure with hypoxia; R64 Cachexia; C79.89 Secondary malignant neoplasm of other specified sites; K61.1 Rectal abscess; C79.31 Secondary malignant neoplasm of brain; C34.90 Malignant neoplasm of unspecified part of unspecified bronchus or lung; J44.9 Chronic obstructive pulmonary disease, unspecified; Z66 Do not resuscitate; D63.0 Anemia in neoplastic disease; G89.3 Neoplasm related pain (acute) (chronic); F32.9 Major depressive disorder, single episode, unspecified; Z68.23 Body mass index [BMI] 23.0-23.9, adult; Z79.01 Long term (current) use of anticoagulants; Z79.899 Other long term (current) drug therapy; Z87.891 Personal history of nicotine dependence; Z87.01 Personal history of pneumonia (recurrent); Z85.21 Personal history of malignant neoplasm of larynx; Z86.718 Personal history of other venous thrombosis and embolism; Z92.3 Personal history of irradiation; Z90.49 Acquired absence of other specified parts of digestive tract; Z98.890 Other specified postprocedural states; Z82.5 Family history of asthma and other chronic lower respiratory diseases; K21.9 Gastro-esophageal reflux disease without esophagitis; Z88.5 Allergy status to narcotic agent; Z88.8 Allergy status to other drugs, medicaments and biological substances; Z80.49 Family history of malignant neoplasm of other genital organs
CPT/HCPCS: 94640